=== PATIENT | female | born 1995 | race Caucasian/White ===

== ENCOUNTER 2017-02-26 21:32 | Emergency (ER) | payer MEDICAID ==
--- NOTE | 2017-02-26 21:57 | EDM.PDOC ---
ED HPI GENERAL MEDICAL PROBLEM - General Chief Complaint: Chest Pain Stated Complaint: CHEST PAIN Time Seen by Provider: 02/26/17 21:55 Source of Information: Reports: Patient History Limitations: Reports: No Limitations - History of Present Illness INITIAL COMMENTS - FREE TEXT/NARRATIVE: 21-year-old female presents to the ED for evaluation of central chest pain associate with palpitations and then left arm numbness weakness and tingling. His riding in a car with her mom back from [place] where they spent the day shopping. His came on suddenly. She states she has been having recurrent upper abdominal pain primarily sharp stabbing colicky component pain off-and-on for 2 months. Associated intermittent nausea. She reports that she is a vague and is concerned that she may not be getting the right nutrients in her diet. Had a baby 4 months ago. Is not had a period since that time. Therefore the possibility exists. Note vital signs are normal with sats of 100% on room air and respiratory rate of 18. She has no history of asthma no recent upper respiratory tract infections. She does report that Jozef's are painful to pass and often associated with blood when she wipes. Just above an anal fissure. The history alone suggest that she has chronic constipation problems. She is currently breast-feeding as well which may be contributing to some volume depletion. Onset: Today Onset Date: 02/26/17 Onset Time: 21:00 Duration: Minutes:, Waxing/Waning (Not aware of any palpitations at this time. Also left arm just feels weak at this time the numbness and tingling is getting better.) Location: Reports: Chest, Abdomen, Lower Extremity, Left Quality: Reports: Pressure, Sharp, Stabbing Severity: Moderate Improves with: Reports: Rest Worsens with: Reports: Other, Movement Context: Denies: Activity (Deep breathing seems to make it worse as well.), Exercise, Lifting, Sick Contact, Trauma, Other Associated Symptoms: Reports: Chest Pain (See history present illness), Nausea/ Vomiting (Intermittent nausea associate with), Shortness of Breath (Associated with the chest pain.). Denies: No Other Symptoms, Confusion, Cough, cough w sputum, Diaphoresis, Fever/Chills, Rash ( a Doppler abdominal sharp stabbing pains.), Seizure, Syncope, Weakness Treatments SERVICE CREW LEADER: Reports: Other (see below) (None.) Chest Pain Score (Numeric/FACES): 7 - Related Data Allergies Allergy/AdvReac Type Severity Reaction Status Date / Time No Known Allergies Allergy Verified 02/26/17 21:45 Home Meds: Home Meds Polyethylene Glycol 3350 [MiraLAX] 17 gm PO DAILY #1 cont 02/26/17 [Rx] Past Medical History - Past Surgical History Female Surgical History: Reports: D&C Social & Family History - Tobacco Use Smoking Status *Q: Never Smoker - Caffeine Use Caffeine Use: Reports: None - Recreational Drug Use Recreational Drug Use: No - Living Situation & Occupation Occupation: Unemployed ED ROS GENERAL - Review of Systems Review Of Systems: See Below Constitutional: Reports: Malaise, Weakness, Fatigue, Decreased Appetite (She's not sure she is losing weight.), Weight Loss. Denies: Fever, Chills HEENT: Reports: No Symptoms Respiratory: Reports: Shortness of Breath, Other (Presents to the ED with chest pain.). Denies: Wheezing, Pleuritic Chest Pain, Cough, Sputum, Hemoptysis Cardiovascular: Reports: Chest Pain, Lightheadedness, Palpitations (Associated with the development of chest pain or abdominal pain at times was aware that her heart was racing when she was in the motor vehicle and developing chest pain.). Denies: Blood Pressure Problem, Claudication, Edema, Orthopnea Endocrine: Reports: Fatigue GI/Abdominal: Reports: Abdominal Pain (Recurrent problems with abdominal pain by history with constipation and suspect anal fissure by history with bleeding with bowel movements and painful bowel movements since she had her baby 4 months ago.), Constipation, Hematochezia (With bowel movements with pain.) : Reports: Other (She has not had a menstrual cycle since she had the baby 4 months ago. She is currently breast-feeding) Skin: Reports: No Symptoms Neurological: Reports: No Symptoms Psychiatric: Reports: No Symptoms Hematologic/Lymphatic: Reports: No Symptoms Immunologic: Reports: No Symptoms ED EXAM, GENERAL - Physical Exam Exam: See Below Exam Limited By: No Limitations (Vital signs are normal) General Appearance: Alert, Anxious, Mild Distress, Other (Vital signs are normal.) Eye Exam: Bilateral Eye: Normal Inspection Neck: Normal Inspection, Supple, Non-Tender, Full Range of Motion. No: Lymphadenopathy (L), Lymphadenopathy (R) Respiratory/Chest: No Respiratory Distress, Lungs Clear, Normal Breath Sounds, No Accessory Muscle Use, Other (Chest wall is very tender to palpation ribs 2-5 bilaterally. The costochondral joints.) Cardiovascular: Normal Peripheral Pulses, Regular Rate, Rhythm, No Edema, No Gallop, No Murmur, No Rub Peripheral Pulses: 3+: Posterior Tibial (L), Posterior Tibial (R), Dorsalis Pedis (L), Dorsalis Pedis (R) GI/Abdominal: Normal Bowel Sounds, Tender, Other (Palpable right hemicolon.). No: Guarding (Mild tilt tenderness right lower quadrant of the abdomen with no rebound or guarding), Rebound Back Exam: Normal Inspection, Full Range of Motion. No: CVA Tenderness (L), CVA Tenderness (R) Extremities: Normal Inspection, Normal Range of Motion, Non-Tender, No Pedal Edema Neurological: Alert, Oriented, CN II-XII Intact, Normal Cognition, Normal Gait, Other (Normal finger to nose movements no ataxia no pronator drift no weakness of the upper extremities on exam.) Psychiatric: Normal Affect, Anxious Skin Exam: Warm, Dry, Intact, Normal Color, No Rash EKG INTERPRETATION EKG Date: 02/26/17 Time: 22:30 Rhythm: NSR Rate (Beats/Min): 65 Amorita: Normal P-Wave: Present QRS: Other (RS are prime wave in V1 normal variation. Low voltage in the limb leads.) ST-T: Normal QT: Normal EKG Interpretation Comments: Essentially normal ECG. Course - Vital Signs Last Recorded V/S: Last Vital Signs Temp 36.3 C 02/26/17 23:20 Pulse 76 02/26/17 23:20 Resp 18 02/26/17 23:20 BP 100/76 02/26/17 23:20 Pulse Ox 100 02/26/17 23:20 - Orders/Labs/Meds Orders: Active Orders 24 hr Category Date Time Status EKG Documentation Completion [RC] STAT Care 02/26/17 22:16 Active Abdomen 1V Flat [CR] Stat Exams 02/26/17 22:11 Taken Chest 1V Frontal [CR] Stat Exams 02/26/17 22:11 Taken Labs: Laboratory Tests 02/26/17 Range/Units 21:57 Urine HCG, Qual Negative (NEGATIVE) Meds: Medications Discontinued Medications Generic Name Dose Route Start Last Admin Trade Name Freq PRN Reason Stop Dose Admin Magnesium Citrate 210 ml 02/26/17 22:59 02/26/17 23:20 Citrate Of Magnesia PO 02/26/17 23:00 210 ml ONETIME ONE Administration - Radiology Interpretation Free Text/Narrative:: 21-year-old female presents the ED with acute onset of anterior chest pain palpitations in the left arm weakness and numbness and tingling. She was in a motor vehicle driving back with from [place] with her mom and symptoms started. She has had similar symptoms in the past. She reports that she is not aware of any severe stress. She is having problems with intermittent abdominal pain worsened by eating with a history of constipation and bleeding per rectum with bowel movements with pain compatible with an anal fissure. The symptoms started after she had a baby 4 months ago. She is currently breast-feeding. She has not had a menstrual cycle since she had the baby. Examination reveals normal vital signs. Chest wall is very tender to palpation ribs 2-5 bilaterally at the costochondral joints. Lungs are clear heart is sinus with no murmurs present. Abdomen shows some distention and tympany to percussion. Bowel sounds were normal palpable right hemicolon clinically. She reports intermittent nausea associated with the abdominal pain. History is strongly suggestive of constipation issues with chest wall pain on exam. Plan ECG one view chest x-ray one view the abdomen to be performed. Urinalysis performed for an ECG before x- rays are done since she is not had a period for months. - Re-Assessments/Exams Free Text/Narrative Re-Assessment/Exam: 02/26/17 22:15: Urine hCG is negative. We'll proceed with one view chest x-ray one view abdominal x-ray. 02/26/17 22:45: Chest x-ray is within normal limits. KUB reveals significant constipation with a lot of stool in the right hemicolon large amount of the transverse colon and descending colon and rectal vault. Correlates with clinical history. Does have chest wall pain and I still think it's related to breast-feeding and advised a good breath support with perhaps double sports bra etc. No thing is she may well be becoming hypo-calcemic due to breast-feeding as she is a vague and and drinking only coconut milk which may not be providing enough calcium support. There is a problem is that calcium supplementation at this time will aggravate her constipation. Plan I'm going to discharge her on Motrin when necessary for chest pain. Will give her Citroma 7 ounces in the morning with 5 ounces of juice to provide bowel cleanse and then to start MiraLAX powder 17 g once daily long-term until she is finished breast-feeding at least to allow the anal fissure to heal and allow her bowel function to return to normal. Of course advised that she must be aware taking adequate fluids daily. Advised follow-up in 2 weeks time if she is continued to have bleeding per rectum and may need medication to help healing anal fissure. 1 Departure - Departure Time of Disposition: 22:57 Disposition: Home, Self-Care 01 Condition: Fair Clinical Impression: Anterior chest wall pain, Costochondritis, Constipation by delayed colonic transit, Anal fissure Abdominal pain Qualifiers: Abdominal location: upper abdomen, unspecified Qualified Code(s): R10.10 - Upper abdominal pain, unspecified - Discharge Information Prescriptions: Polyethylene Glycol 3350 [MiraLAX] 17 gm PO DAILY #1 cont Instructions: Abdominal Pain, Adult, Chest Wall Pain, [id number], Costochondritis Referrals: PCP,Not In Area [Primary Care Provider] - Forms: ED Department Discharge Additional Instructions: Evaluation in the emergency room tonight in regards to development of palpitations associated with chest pains and radiation of pain into the left arm with associated numbness and tingling due to hyperventilation syndrome. History of recurrent abdominal pain for several months with associated constipation problems and rectal bleeding with bowel movements compatible with anal fissure. Evaluation emergency room consisted of an ECG or heart tracing which proved to be normal. Also chest x-ray completely normal. Abdominal x-ray revealed extensive constipation with increased stool throughout most of the colon which is foreign half feet long. This is definitely the cause of recurrent abdominal pain worsened by eating and because of painful bowel movements with rectal bleeding. Chest wall pain identified on examination particularly throughout the anterior aspect of the ribs 2-5 on both sides of your chest. This may be related to breast-feeding and the weight of the breasts pulling on the chest wall causing pain. He can also lower your calcium levels which is placed in the breast milk which may be contributing to some of your chest wall pain. I suggest would be Motrin 600 mg every 6-8 hours as needed for chest wall pain. Treatment of constipation is to be Citroma takes 7 ounces in the morning with 5 ounces of juice of choice by mouth once. His usually takes 1- 2 hours to start to work and bowels were move usually 3-5 times. By bowel cleanse. Then I would suggest trying MiraLAX powder 17 g or 1 scoop every day to soften the stool and provide regular bowel movements. At this time I would not recommend calcium supplementation as it tends to cause constipation. I would suggest continue vitamin which has all the vitamin B vitamins that he would need to support your vegan diet. Suggest follow-up in the clinic if you're still having rectal bleeding or for continued abdominal pain, in 2 weeks' time. - My Orders Last 24 Hours: My Active Orders 02/26/17 22:11 Abdomen 1V Flat [CR] Stat Chest 1V Frontal [CR] Stat 02/26/17 22:16 EKG Documentation Completion [RC] STAT - Assessment/Plan Last 24 Hours: My Active Orders 02/26/17 22:11 Abdomen 1V Flat [CR] Stat Chest 1V Frontal [CR] Stat 02/26/17 22:16 EKG Documentation Completion [RC] STAT
[2017-02-26] MEDS ORDERED: Magnesium Citrate Solution 296 ML Bottle PO ONE (22:59)
--- NOTE | 2017-02-28 11:40 | CR ---
Abdomen: Supine view of the abdomen was obtained. Comparison: No prior study. Mild increased stool is seen throughout the colon. Bowel gas pattern is otherwise unremarkable. No abnormal calcifications or discrete soft tissue abnormality is identified. No discrete bony abnormality is seen. Impression: 1. Mild increased stool is seen throughout the colon. Diagnostic code #2
--- NOTE | 2017-02-28 11:40 | CR ---
Chest: Frontal view of the chest was obtained. Comparison: No prior study. Heart size and mediastinum are normal. Lungs are clear. Bony structures appear grossly intact. Impression: 1. Nothing acute is seen on frontal chest x-ray. Diagnostic code #1
== END 2017-02-26 23:15 | disposition home or self-care (01) ==
LOC: JD.ED 21:32
DX: M94.0 Chondrocostal junction syndrome [Tietze] (principal); K59.01 Slow transit constipation; K60.2 Anal fissure, unspecified
CPT/HCPCS: 71010; 74000; 81025; 93005; 99285; A9270; 93010; 99284

== ENCOUNTER 2017-08-02 15:30 | Emergency (ER) | payer MEDICAID ==
[2017-08-02] MEDS ORDERED: LORazepam 1 MG Tab PO ONE (16:21)
--- NOTE | 2017-08-02 16:31 | EDM.PDOC ---
ED HPI GENERAL MEDICAL PROBLEM - General Chief Complaint: Respiratory Problem Stated Complaint: TROUGLE BREATHING Time Seen by Provider: 08/02/17 15:53 Source of Information: Reports: Patient History Limitations: Reports: No Limitations - History of Present Illness INITIAL COMMENTS - FREE TEXT/NARRATIVE: Patient is a 21-year-old female presents ED complaining of sudden onset of chest tightness worse with taking a deep breath and sensation her body shaking that started approximately 2 hours ago. Patient was cleaning her house when this occurred. She felt short of breath to the chest tightness and felt like her heart was pounding. Patient sat down on the couch still had the sensation of somebody was sitting on her chest. She is mildly dizzy with standing. She is mildly nauseated with no emesis. Pain is rated a 6 out of 10. Worse with taking deep breath. And also palpation. She has a history of panic attack in the past. States symptoms are different as of recent. She really doesn't feel anxious at this point. Complains of clamminess to her hands bilaterally. She's had no history of DVT or PE. She has no swelling or pain to her lower extremities. She is not on control. Nor does the patient smoke. Patient has no known hypercoaguable state. She does not have cancer. Basic labs and studies include: CBC, chem 14, UA, TSH, hCG, chest x-ray one view , and EKG. Patient complaining of shaky sensation all over her body. I do believe some of the symptoms she is experiencing associated with anxiety. She does have a history anxiety in the past. Ordered Ativan 1 mg by mouth. Treatments BANK APPRAISER: Reports: Other (see below) Other Treatments BANK APPRAISER: nnone - Related Data Allergies Allergy/AdvReac Type Severity Reaction Status Date / Time No Known Allergies Allergy Verified 02/26/17 21:45 Home Meds: Home Meds . [No Known Home Meds] 08/02/17 [History] Past Medical History - Past Health History Medical/Surgical History: Denies Medical/Surgical History - Past Surgical History Female Surgical History: Reports: D&C Social & Family History - Tobacco Use Smoking Status *Q: Never Smoker - Caffeine Use Caffeine Use: Reports: Coffee - Recreational Drug Use Recreational Drug Use: No - Living Situation & Occupation Occupation: Unemployed ED ROS GENERAL - Review of Systems Review Of Systems: ROS reveals no pertinent complaints other than HPI. ED EXAM, GENERAL - Physical Exam Exam: See Below Exam Limited By: No Limitations General Appearance: Alert, WD/WN, Anxious Eye Exam: Bilateral Eye: Normal Inspection Ears: Hearing Grossly Normal Nose: Normal Inspection Throat/Mouth: Normal Inspection, Normal Oropharynx, Normal Voice, No Airway Compromise Head: Atraumatic, Normocephalic Neck: Normal Inspection, Supple Respiratory/Chest: No Respiratory Distress, Lungs Clear, Normal Breath Sounds, No Accessory Muscle Use, Other (Anterior chest discomfort with palpation.) Cardiovascular: Normal Peripheral Pulses, Regular Rate, Rhythm, No JVD, No Murmur, No Rub Peripheral Pulses: 4+: Radial (L), Radial (R) GI/Abdominal: Normal Bowel Sounds, Soft, Non-Tender, No Organomegaly, No Distention Back Exam: Normal Inspection Extremities: Normal Inspection, Normal Range of Motion, Non-Tender, No Pedal Edema, Normal Capillary Refill Neurological: Alert, Oriented, CN II-XII Intact, Normal Cognition, No Motor/ Sensory Deficits Psychiatric: Normal Affect, Normal Mood Skin Exam: Warm, Dry, Intact, Normal Color, No Rash Course - Vital Signs Last Recorded V/S: Last Vital Signs Temp 98.1 F 08/02/17 15:41 Pulse 73 08/02/17 15:41 Resp 20 08/02/17 15:41 BP 95/64 08/02/17 15:41 Pulse Ox 100 08/02/17 15:41 - Orders/Labs/Meds Orders: Active Orders 24 hr Category Date Time Status EKG 12 Lead [EKG Documentation Completion] [RC] STAT Care 08/02/17 16:20 Active HCG QUALITATIVE,URINE [URCHEM] Stat Lab 08/02/17 16:45 Ordered Labs: Laboratory Tests 08/02/17 08/02/17 08/02/17 Range/Units 16:34 16:34 16:34 WBC 7.63 (3.98-10.04) K/mm3 RBC 4.83 (3.98-5.22) M/mm3 Hgb 14.8 (11.2-15.7) gm/L Hct 44.4 (34.1-44.9) % MCV 91.9 (79.4-94.8) fl MCH 30.6 (25.6-32.2) pg MCHC 33.3 (32.2-35.5) g/dl RDW Std Deviation 40.4 (36.4-46.3) fL Plt Count 275 (182-369) K/mm3 MPV 9.3 L (9.4-12.3) fl Neutrophils % (Manual) 60 (40-60) % Band Neutrophils % 0 (0-10) % Lymphocytes % (Manual) 29 (20-40) % Atypical Lymphs % 4 % Monocytes % (Manual) 6 (2-10) % Eosinophils % (Manual) 1 (0.7-5.8) % Basophils % (Manual) 0 L (0.1-1.2) Platelet Estimate Adequate Plt Morphology Comment Normal Anisocytosis RBC Morph Comment Normal Sodium 138 (136-145) mEq/L Potassium 3.7 (3.5-5.1) mEq/L Chloride 105 (98-107) mEq/L Carbon Dioxide 30 (21-32) mEq/L Anion Gap 6.7 (5-15) BUN 11 (7-18) mg/dL Creatinine 0.7 (0.55-1.02) mg/dL Est Cr Clr Drug Dosing 104.28 mL/min Estimated GFR (MDRD) > 60 (>60) mL/min BUN/Creatinine Ratio 15.7 (14-18) Glucose 96 (74-106) mg/dL Calcium 10.0 (8.5-10.1) mg/dL Total Bilirubin 0.3 (0.2-1.0) mg/dL AST 13 L (15-37) U/L ALT 20 (14-59) U/L Alkaline Phosphatase 113 (46-116) U/L Total Protein 7.4 (6.4-8.2) g/dl Albumin 4.0 (3.4-5.0) g/dl Globulin 3.4 gm/dL Albumin/Globulin Ratio 1.2 (1-2) TSH 3rd Generation 1.091 (0.358-3.74) uIU/mL Urine Color (Yellow) Urine Appearance (Clear) Urine pH (5.0-8.0) Ur Specific [place] (1.005-1.030) Urine Protein (Negative) Urine Glucose (UA) (Negative) Urine Ketones (Negative) Urine Occult Blood (Negative) Urine Nitrite (Negative) Urine Bilirubin (Negative) Urine Urobilinogen (0.2-1.0) Ur Leukocyte Esterase (Negative) Urine RBC (0-5) /hpf Urine WBC (0-5) /hpf Ur Epithelial Cells (0-5) /hpf Urine Bacteria (FEW) /hpf Urine Mucus (FEW) /hpf Urine HCG, Qual (NEGATIVE) 08/02/17 08/02/17 Range/Units 16:45 16:45 WBC (3.98-10.04) K/mm3 RBC (3.98-5.22) M/mm3 Hgb (11.2-15.7) gm/L Hct (34.1-44.9) % MCV (79.4-94.8) fl MCH (25.6-32.2) pg MCHC (32.2-35.5) g/dl RDW Std Deviation (36.4-46.3) fL Plt Count (182-369) K/mm3 MPV (9.4-12.3) fl Neutrophils % (Manual) (40-60) % Band Neutrophils % (0-10) % Lymphocytes % (Manual) (20-40) % Atypical Lymphs % % Monocytes % (Manual) (2-10) % Eosinophils % (Manual) (0.7-5.8) % Basophils % (Manual) (0.1-1.2) Platelet Estimate Plt Morphology Comment Anisocytosis RBC Morph Comment Sodium (136-145) mEq/L Potassium (3.5-5.1) mEq/L Chloride (98-107) mEq/L Carbon Dioxide (21-32) mEq/L Anion Gap (5-15) BUN (7-18) mg/dL Creatinine (0.55-1.02) mg/dL Est Cr Clr Drug Dosing mL/min Estimated GFR (MDRD) (>60) mL/min BUN/Creatinine Ratio (14-18) Glucose (74-106) mg/dL Calcium (8.5-10.1) mg/dL Total Bilirubin (0.2-1.0) mg/dL AST (15-37) U/L ALT (14-59) U/L Alkaline Phosphatase (46-116) U/L Total Protein (6.4-8.2) g/dl Albumin (3.4-5.0) g/dl Globulin gm/dL Albumin/Globulin Ratio (1-2) TSH 3rd Generation (0.358-3.74) uIU/mL Urine Color Light yellow (Yellow) Urine Appearance Clear (Clear) Urine pH 7.0 (5.0-8.0) Ur Specific [place] 1.015 (1.005-1.030) Urine Protein Negative (Negative) Urine Glucose (UA) Negative (Negative) Urine Ketones Negative (Negative) Urine Occult Blood Negative (Negative) Urine Nitrite Negative (Negative) Urine Bilirubin Negative (Negative) Urine Urobilinogen 0.2 (0.2-1.0) Ur Leukocyte Esterase Negative (Negative) Urine RBC 0-5 (0-5) /hpf Urine WBC 0-5 (0-5) /hpf Ur Epithelial Cells 0-5 (0-5) /hpf Urine Bacteria Rare (FEW) /hpf Urine Mucus Not seen (FEW) /hpf Urine HCG, Qual Negative (NEGATIVE) Meds: Medications Discontinued Medications Generic Name Dose Route Start Last Admin Trade Name Freq PRN Reason Stop Dose Admin Acetaminophen 975 mg 08/02/17 17:54 08/02/17 18:23 Tylenol PO 08/02/17 17:55 Not Given NOW ONE Lorazepam 1 mg 08/02/17 16:21 08/02/17 16:40 Ativan PO 08/02/17 16:22 Not Given ONETIME ONE - Re-Assessments/Exams Free Text/Narrative Re-Assessment/Exam: PERC Rule Negative. Basic labs and studies include: CBC, chem 14, UA, TSH, hCG, chest x-ray one view , and EKG. Patient complaining of shaky sensation all over her body. I do believe some of the symptoms she is experiencing associated with anxiety. She does have a history anxiety in the past. Ordered Ativan 1 mg by mouth. 08/02/17 16:41 Patient has refused the ativan. She is breast feeding and does not have breast pump. CXR revealed no acute findings. Labs reviewed: White blood cell count within normal limits, hemoglobin 14.8, platelet count 275. Chemistry was essentially normal. TSH 1.091. UA negative for infection. HCG negative. EKG: Normal ECG. 1745 Reassessment, patient resting complaining bed. Vital signs are stable. Still continues to have some mild anterior chest discomfort worse with taking a deep breath and palpation. She still feeling anxious. Offered Ativan again to which she denied. Will order Tylenol 975 mg by mouth. Will discharge patient home with instructions as documented. Departure - Departure Time of Disposition: 17:56 Disposition: Home, Self-Care 01 Condition: Good Clinical Impression: Anterior chest wall pain, Anxiety - Discharge Information Instructions: Chest Wall Pain Referrals: Crispin Wallace [Primary Care Provider] - Forms: ED Department Discharge Additional Instructions: Pain to the chest is reproducible with palpation and also taking a deep breath. Consistent for chest wall pain. Treatment will consist of Tylenol 650 mg every 6 hours and ibuprofen 400-600 mg every 6 hours in alternating fashion for pain. Refrain from any activities that cause worsening pain. Would request you speak with your primary care provider to discuss treatment for anxiety. Suspect most of your symptoms brought on today were anxiety induced. Please return to the E.D. if you develop any new or worsening symptoms. - My Orders Last 24 Hours: My Active Orders 08/02/17 16:20 EKG 12 Lead [EKG Documentation Completion] [RC] STAT 08/02/17 16:45 HCG QUALITATIVE,URINE [URCHEM] Stat - Assessment/Plan Last 24 Hours: My Active Orders 08/02/17 16:20 EKG 12 Lead [EKG Documentation Completion] [RC] STAT 08/02/17 16:45 HCG QUALITATIVE,URINE [URCHEM] Stat
--- NOTE | 2017-08-02 17:53 | CR ---
Chest: Portable view of the chest was obtained. Comparison: Prior chest x-ray of 02/26/17. Heart size and mediastinum are normal. Lungs are clear. Bony structures are unremarkable for the patient's age. Impression: 1. Nothing acute is appreciated on 2 view chest x-ray. Diagnostic code #1
[2017-08-02] MEDS ORDERED: Acetaminophen 325 MG Tab PO ONE (17:54)
== END 2017-08-02 18:00 | disposition home or self-care (01) ==
LOC: JD.ED 15:30
DX: R07.89 Other chest pain (principal); F41.9 Anxiety disorder, unspecified
CPT/HCPCS: 36415; 71045; 71045-26; 80053; 81001; 81025; 84443; 85025; 93005; 93010; 99284; 99285-25

== ENCOUNTER 2017-08-02 23:38 | Emergency (ER) | payer MEDICAID ==
--- NOTE | 2017-08-03 02:49 | EDM.PDOC ---
ED HPI GENERAL MEDICAL PROBLEM - General Chief Complaint: Lower Extremity Injury/Pain Stated Complaint: LEFT CALF PAIN DOWN TO FOOT Time Seen by Provider: 08/03/17 01:01 Source of Information: Reports: Patient, Old Records History Limitations: Reports: No Limitations - History of Present Illness INITIAL COMMENTS - FREE TEXT/NARRATIVE: Medical records indicate that the patient was seen in this ED earlier this afternoon with a complaint of sudden onset chest tightness, made worse with deep breaths, whole-body shaking, mild dizziness with standing, and mild nausea without emesis. Her oxygen saturation was found to be 100% on room air. Workup included a CBC, CMP, TSH level, urinalysis, urine test, portable chest radiograph, and an ECG. Her entire workup was unremarkable. Her symptoms were felt to be due to anxiety. She was offered Ativan, which she refused because she is breast-feeding. She was discharged home in good condition. She now returns to the ED stating that she developed pain in her left calf around 23:00 tonight. There is pain even if she is not using the muscle, such as with ambulation. No recent injury to the calf. The patient has not noticed any visible abnormality to the leg. She states that she is feeling very nervous , like "something is wrong". She reports that the symptoms that she experienced earlier today have largely resolved, although she states that she currently has left foot numbness and cold feeling, tightness in her throat, and chest pain. She had dyspnea earlier, but not presently. She denies abdominal pain or nausea. She denies perioral tingling, tingling of the hands or fingers, or the sensation of walking on rubber legs. The patient acknowledges that she has a history of panic attacks, previously treated with Ativan, however, she discontinued it due to concerns about dependency. Here in the ED, is again noted that the patient's oxygen saturation is 100% on room air. The patient's PCP is Dr. Wallace. Left Lower Leg Pain Score (Numeric/FACES): 4 - Related Data Allergies Allergy/AdvReac Type Severity Reaction Status Date / Time No Known Allergies Allergy Verified 08/02/17 23:59 Home Meds: Home Meds . [No Known Home Meds] 08/02/17 [History] Past Medical History Psychiatric History: Reports: Anxiety, Panic Attack - Past Surgical History Female Surgical History: Reports: D&C (Elective ) Social & Family History - Tobacco Use Smoking Status *Q: Former Smoker Years of Tobacco use: 5 Packs/Tins Daily: 0.5 Packs/Tins Daily Comment: Quit 2014 - Caffeine Use Caffeine Use: Reports: Coffee - Alcohol Use Alcohol Use History: No - Recreational Drug Use Recreational Drug Use: Yes Drug Use in Last 12 Months: No Recreational Drug Type: Reports: Marijuana/Hashish (last smoked 2015) - Living Situation & Occupation Living situation: Reports: Single, with Significant Other (Boyfriend), with Family (2 kids) Occupation: Unemployed ED ROS GENERAL - Review of Systems Review Of Systems: ROS reveals no pertinent complaints other than HPI. ED EXAM, GENERAL - Physical Exam Exam: See Below Exam Limited By: No Limitations General Appearance: Alert, WD/WN, Anxious Eye Exam: Bilateral Eye: Normal Inspection Ears: Normal External Exam, Hearing Grossly Normal Nose: Normal Inspection, No Blood Throat/Mouth: Normal Inspection, Normal Lips, Normal Oropharynx, Normal Voice, No Airway Compromise Head: Atraumatic, Normocephalic Neck: Normal Inspection, Full Range of Motion Respiratory/Chest: No Respiratory Distress, Lungs Clear, Normal Breath Sounds, No Accessory Muscle Use Cardiovascular: Normal Peripheral Pulses, Regular Rate, Rhythm, No Edema, No Gallop, No JVD, No Murmur, No Rub Peripheral Pulses: 4+: Radial (L), Radial (R) GI/Abdominal: Normal Bowel Sounds, Soft, Non-Tender, No Organomegaly, No Distention, No Abnormal Bruit, No Mass (Female) Exam: Deferred Rectal (Female) Exam: Deferred Back Exam: Normal Inspection, Full Range of Motion, NT Extremities: Normal Inspection, Normal Range of Motion, No Pedal Edema, Normal Capillary Refill, Other (No visible abnormality to the left lower extremity, in particular, the left calf, such as swelling, erythema, ecchymosis, or abrasion. Mild tenderness to palpation of the posterior calf. Right mid-calf circumference 32.5 cm. Left mid-calf circumference is 33.0 cm. Neurovascular status of both lower extremity is is intact.) Neurological: Alert, Oriented, Normal Cognition, No Motor/Sensory Deficits Psychiatric: Anxious Skin Exam: Warm, Dry, Intact, Normal Color, No Rash Course - Vital Signs Last Recorded V/S: Last Vital Signs Temp 36.7 C 05/03/18 00:00 Pulse 84 08/03/17 00:00 Resp 18 08/03/17 00:00 BP 117/68 08/03/17 00:00 Pulse Ox 100 08/03/17 00:00 - Orders/Labs/Meds Orders: Active Orders 24 hr Category Date Time Status VL Duplex Lwr Ext Veins Ltd Lt [US] Stat Exams 08/03/17 01:18 Taken - Re-Assessments/Exams Free Text/Narrative Re-Assessment/Exam: 08/03/17 02:44 Venous Doppler of the left lower extremity is read by [facility] as "Normal left lower extremity duplex venous ultrasound." 08/03/17 02:49 Ultrasound results discussed with the patient. The patient's symptoms, both at her earlier ED visit as well as this visit, are almost certainly due to hyperventilation syndrome due to anxiety. I recommended that she follow-up with Dr. Wallace to discuss treatment options for anxiety. The patient is agreeable. Departure - Departure Time of Disposition: 02:51 Disposition: Home, Self-Care 01 Condition: Good Clinical Impression: Hyperventilation syndrome - Discharge Information Instructions: Hyperventilation Referrals: Crispin Wallace [Primary Care Provider] - Forms: ED Department Discharge Additional Instructions: You were seen in the emergency room for left leg pain. Workup in the ER included a Doppler ultrasound of your left lower extremity, which was normal. You do not have a blood clot in your leg. Your symptoms, including those from your earlier ER visit, are almost certainly due to hyperventilation syndrome, due to anxiety. We recommend that you follow-up with your PCP, Dr. Wallace, to discuss treatment options for anxiety. If any other problems, please do not hesitate to return to the ER. - My Orders Last 24 Hours: My Active Orders 08/03/17 01:18 VL Duplex Lwr Ext Veins Ltd Lt [US] Stat - Assessment/Plan Last 24 Hours: My Active Orders 08/03/17 01:18 VL Duplex Lwr Ext Veins Ltd Lt [US] Stat
--- NOTE | 2017-08-03 08:11 | US ---
Left lower extremity deep venous ultrasound: Duplex and color flow imaging was obtained of the left common femoral, proximal greater saphenous, superficial femoral, popliteal, posterior tibial and peroneal veins. Findings: Normal phasic flow, augmentation and compression are seen. Impression: 1. No evidence of deep venous thrombosis is seen within the left lower extremity or within the right common femoral vein. Diagnostic code #1 Agree with preliminary report issued by [facility] ([facility] preliminary report dictated on 08/03/17, 3:28 AM Central Time)
== END 2017-08-03 02:55 | disposition home or self-care (01) ==
LOC: JD.ED 23:38
DX: F45.8 Other somatoform disorders (principal); Z87.891 Personal history of nicotine dependence
CPT/HCPCS: 93971-26-LT; 93971-LT; 99284-25

== ENCOUNTER 2017-12-05 10:28 | Emergency (ER) | payer MEDICAID ==
--- NOTE | 2017-12-05 11:17 | EDM.PDOC ---
ED HPI GENERAL MEDICAL PROBLEM - General Chief Complaint: Eye Problems Stated Complaint: LEFT EYE NUMBNESS Time Seen by Provider: 12/05/17 10:37 Source of Information: Reports: Patient History Limitations: Reports: No Limitations - History of Present Illness INITIAL COMMENTS - FREE TEXT/NARRATIVE: 22-year-old female presenting with blurry vision. Patient states that this morning she was having some dental work done a local block was performed. Patient states she's had exposure to this anesthetic before is had no previous reactions. The dental work took place in the left mandible. While driving home the patient noted gradual onset of blurry vision in the left eye. She denies any pain at all. Just very mild blurriness in the left eye. No photophobia. She does state that at times she sees floaters. Patient has no history of any ocular problems. She does wear glasses normally but did not bring them today. - Related Data Allergies Allergy/AdvReac Type Severity Reaction Status Date / Time No Known Allergies Allergy Verified 12/05/17 10:43 Home Meds: Home Meds . [No Known Home Meds] 08/02/17 [History] Past Medical History - Past Health History Medical/Surgical History: Denies Medical/Surgical History Psychiatric History: Reports: Anxiety, Panic Attack - Past Surgical History Female Surgical History: Reports: D&C Social & Family History - Caffeine Use Caffeine Use: Reports: Coffee - Living Situation & Occupation Living situation: Reports: Single, with Significant Other (Boyfriend), with Family (2 kids) Occupation: Unemployed ED ROS GENERAL - Review of Systems Review Of Systems: See Below Constitutional: Reports: No Symptoms HEENT: Reports: Vision Change Respiratory: Reports: No Symptoms Cardiovascular: Reports: No Symptoms Endocrine: Reports: No Symptoms GI/Abdominal: Reports: No Symptoms : Reports: No Symptoms Musculoskeletal: Reports: No Symptoms Skin: Reports: No Symptoms ED EXAM GENERAL W FULL EYE - Physical Exam Exam: See Below Exam Limited By: No Limitations General Appearance: Alert, No Apparent Distress Eyelids: Bilateral: Normal Appearance, Lid Everted for Exam Conjunctiva & Sclera: Bilateral: Normal Appearance Extraocular Movements: Bilateral: Intact Pupils: Normal Accommodation Pupillary Size: Bilateral: 4 mm Pupillary Reaction: Bilateral: Brisk Throat/Mouth: Normal Inspection Respiratory/Chest: No Respiratory Distress Cardiovascular: Normal Peripheral Pulses, Regular Rate, Rhythm GI/Abdominal: Soft, Non-Tender, No Distention Neurological: Alert, Oriented, CN II-XII Intact, Normal Cognition, No Motor/ Sensory Deficits Psychiatric: Normal Affect, Normal Mood Skin Exam: Warm, Dry, Intact Course - Vital Signs Last Recorded V/S: Last Vital Signs Temp 36.3 C 12/05/17 10:41 Pulse 81 12/05/17 10:41 Resp 16 12/05/17 10:41 BP 114/67 12/05/17 10:41 Pulse Ox 100 12/05/17 10:41 - Re-Assessments/Exams Free Text/Narrative Re-Assessment/Exam: 12/05/17 11:35 DDX: scleritis, vitreous hemorrhage, retinal detachment, atypical migraine, multiple sclerosis 22 y F presenting with blurred vision in left eye. Exam shows no evidence of conjunctival injection. Pupils equal round and reactive. EOMI. Visual juarez intact to confrontation. I performed ocular ultrasound at the bedside and showed no evidence vitreous hemorrhage or retinal detachment. Conversation with the patient regarding the uncertainty of her diagnosis at this time. Doesn't appear to be an emergency. If she has worsening blurry vision, pain in the eye she is to report immediately to the nearest ED for re-evaluation. Departure - Departure Time of Disposition: 11:47 Disposition: Home, Self-Care 01 Clinical Impression: Blurry vision, left eye - Discharge Information *PRESCRIPTION DRUG MONITORING PROGRAM REVIEWED*: No *COPY OF PRESCRIPTION DRUG MONITORING REPORT IN PATIENT SVETLANA: No Instructions: Blurred Vision, Adult Referrals: PCP,None [Primary Care Provider] - Forms: ED Department Discharge Additional Instructions: You were seen today in the ED for blurry vision. At this time you do not appear to have an emergency. If at any time you have worsening blurry vision, or eye pain please return to the nearest ED immediately for re-evaluation.
== END 2017-12-05 11:25 | disposition home or self-care (01) ==
LOC: JD.ED 10:28
DX: H53.8 Other visual disturbances (principal)
CPT/HCPCS: 99283

== ENCOUNTER 2018-01-05 16:38 | Emergency (ER) | payer MEDICAID ==
[2018-01-05] MEDS ORDERED: Sodium Chloride 0.9% 1,000 ML IV ONE (17:04)
--- NOTE | 2018-01-05 17:09 | EDM.PDOC ---
ED HPI GENERAL MEDICAL PROBLEM - General Chief Complaint: Abdominal Pain Stated Complaint: ABD PAIN Time Seen by Provider: 01/05/18 16:52 - History of Present Illness INITIAL COMMENTS - FREE TEXT/NARRATIVE: Patient is 22-year-old female accompanied by family member, who present today to the emergency department for an evaluation of right-sided abdominal pain for last 3 days. She stated that she did develop pain in her abdomen mainly in the right side while at work which has been intermittent in nature for last 3 days. Patient has no radiation however she stated that at one point her pain was on the right side of the flank area. Abdominal pain associated with nausea but denies any actual vomiting. She further denies any diarrhea, constipation, dysuria, urinary frequency or urgency, vaginal bleeding or discharge, subjective fever or chills, chest pain or palpitation, shortness of breath, headache or dizziness. She further denies any recent traveling or known sick contacts. Denies any out of the ordinary oral liquid or food ingestion for the past few days. She denies any medication use to alleviate pain or discomfort prior to arrival. Denies any other concern at this time. Right Abdomen Pain Score (Numeric/FACES): 8 - Related Data Allergies Allergy/AdvReac Type Severity Reaction Status Date / Time No Known Allergies Allergy Verified 01/05/18 16:48 Home Meds: Home Meds . [No Known Home Meds] 08/02/17 [History] Ondansetron [Zofran ODT] 4 mg PO Q8H PRN #15 tab.dis 01/05/18 [Rx] Past Medical History - Past Health History Medical/Surgical History: Denies Medical/Surgical History Psychiatric History: Reports: Anxiety, Panic Attack - Past Surgical History Female Surgical History: Reports: D&C Social & Family History - Tobacco Use Smoking Status *Q: Never Smoker Second Hand Smoke Exposure: No - Caffeine Use Caffeine Use: Reports: None - Recreational Drug Use Recreational Drug Use: No - Living Situation & Occupation Living situation: Reports: Single, with Significant Other (Boyfriend), with Family (2 kids) Occupation: Unemployed ED ROS GENERAL - Review of Systems Review Of Systems: ROS reveals no pertinent complaints other than HPI. ED EXAM, GI/ABD - Physical Exam Exam: See Below Exam Limited By: No Limitations General Appearance: Alert, WD/WN, No Apparent Distress Throat/Mouth: Normal Inspection, Normal Lips, Normal Oropharynx, Normal Voice, No Airway Compromise Head: Atraumatic, Normocephalic Neck: Normal Inspection, Supple, Full Range of Motion Respiratory/Chest: No Respiratory Distress, Lungs Clear, Normal Breath Sounds Cardiovascular: Normal Peripheral Pulses, Regular Rate, Rhythm GI/Abdominal Exam: Normal Bowel Sounds, Soft, No Organomegaly, No Distention, No Abnormal Bruit, No Mass, Other (Diffuse tenderness to palpation over the right upper and lower quadrant ). No: Guarding, Rigid, Rebound (Female) Exam: Deferred Rectal (Female) Exam: Deferred Back Exam: Normal Inspection, Full Range of Motion. No: CVA Tenderness (L), CVA Tenderness (R) Extremities: Normal Inspection, Normal Range of Motion, Normal Capillary Refill Neurological: Alert, Oriented, No Motor/Sensory Deficits Psychiatric: Normal Affect, Normal Mood Skin Exam: Warm, Dry, Intact, Normal Color, No Rash Course - Vital Signs Last Recorded V/S: Last Vital Signs Temp 37.0 C 01/05/18 16:41 Pulse 86 01/05/18 16:41 Resp 18 01/05/18 16:41 BP 101/64 01/05/18 16:41 Pulse Ox 99 01/05/18 16:41 - Orders/Labs/Meds Orders: Active Orders 24 hr Category Date Time Status Abdomen Comp [US] Stat Exams 01/05/18 17:48 Taken Labs: Laboratory Tests 01/05/18 01/05/18 01/05/18 Range/Units 17:05 17:05 17:15 WBC 9.19 (3.98-10.04) K/mm3 RBC 4.66 (3.98-5.22) M/mm3 Hgb 14.5 (11.2-15.7) gm/L Hct 43.2 (34.1-44.9) % MCV 92.7 (79.4-94.8) fl MCH 31.1 (25.6-32.2) pg MCHC 33.6 (32.2-35.5) g/dl RDW Std Deviation 40.9 (36.4-46.3) fL Plt Count 253 (182-369) K/mm3 MPV 9.2 L (9.4-12.3) fl Neut % (Auto) 66.2 (34.0-71.1) % Lymph % (Auto) 25.7 (19.3-51.7) % Pender % (Auto) 7.4 (4.7-12.5) % Eos % (Auto) 0.4 L (0.7-5.8) Baso % (Auto) 0.1 (0.1-1.2) % Neut # (Auto) 6.08 (1.56-6.13) K/mm3 Lymph # (Auto) 2.36 (1.18-3.74) K/mm3 Pender # (Auto) 0.68 H (0.24-0.36) K/mm3 Eos # (Auto) 0.04 (0.04-0.36) K/mm3 Baso # (Auto) 0.01 (0.01-0.08) K/mm3 Sodium (136-145) mEq/L Potassium (3.5-5.1) mEq/L Chloride (98-107) mEq/L Carbon Dioxide (21-32) mEq/L Anion Gap (5-15) BUN (7-18) mg/dL Creatinine (0.55-1.02) mg/dL Est Cr Clr Drug Dosing mL/min Estimated GFR (MDRD) (>60) mL/min BUN/Creatinine Ratio (14-18) Glucose (74-106) mg/dL Calcium (8.5-10.1) mg/dL Total Bilirubin (0.2-1.0) mg/dL AST (15-37) U/L ALT (14-59) U/L Alkaline Phosphatase (46-116) U/L Total Protein (6.4-8.2) g/dl Albumin (3.4-5.0) g/dl Globulin gm/dL Albumin/Globulin Ratio (1-2) Lipase (73-393) U/L Urine Color Dark yellow (Yellow) Urine Appearance Clear (Clear) Urine pH 7.5 (5.0-8.0) Ur Specific [place] 1.020 (1.005-1.030) Urine Protein Trace H (Negative) Urine Glucose (UA) Negative (Negative) Urine Ketones Trace H (Negative) Urine Occult Blood Negative (Negative) Urine Nitrite Negative (Negative) Urine Bilirubin Negative (Negative) Urine Urobilinogen 1.0 (0.2-1.0) Ur Leukocyte Esterase Trace H (Negative) Urine RBC 0-5 (0-5) /hpf Urine WBC 5-10 H (0-5) /hpf Ur Epithelial Cells 50-75 H (0-5) /hpf Urine Bacteria Many H (FEW) /hpf Urine Mucus Not seen (FEW) /hpf Urine HCG, Qual Negative (NEGATIVE) 01/05/18 Range/Units 17:15 WBC (3.98-10.04) K/mm3 RBC (3.98-5.22) M/mm3 Hgb (11.2-15.7) gm/L Hct (34.1-44.9) % MCV (79.4-94.8) fl MCH (25.6-32.2) pg MCHC (32.2-35.5) g/dl RDW Std Deviation (36.4-46.3) fL Plt Count (182-369) K/mm3 MPV (9.4-12.3) fl Neut % (Auto) (34.0-71.1) % Lymph % (Auto) (19.3-51.7) % Pender % (Auto) (4.7-12.5) % Eos % (Auto) (0.7-5.8) Baso % (Auto) (0.1-1.2) % Neut # (Auto) (1.56-6.13) K/mm3 Lymph # (Auto) (1.18-3.74) K/mm3 Pender # (Auto) (0.24-0.36) K/mm3 Eos # (Auto) (0.04-0.36) K/mm3 Baso # (Auto) (0.01-0.08) K/mm3 Sodium 141 (136-145) mEq/L Potassium 3.7 (3.5-5.1) mEq/L Chloride 104 (98-107) mEq/L Carbon Dioxide 28 (21-32) mEq/L Anion Gap 12.7 (5-15) BUN 9 (7-18) mg/dL Creatinine 0.8 (0.55-1.02) mg/dL Est Cr Clr Drug Dosing 90.47 mL/min Estimated GFR (MDRD) > 60 (>60) mL/min BUN/Creatinine Ratio 11.3 L (14-18) Glucose 89 (74-106) mg/dL Calcium 9.5 (8.5-10.1) mg/dL Total Bilirubin 0.4 (0.2-1.0) mg/dL AST 16 (15-37) U/L ALT 18 (14-59) U/L Alkaline Phosphatase 109 (46-116) U/L Total Protein 7.7 (6.4-8.2) g/dl Albumin 3.9 (3.4-5.0) g/dl Globulin 3.8 gm/dL Albumin/Globulin Ratio 1.0 (1-2) Lipase 134 (73-393) U/L Urine Color (Yellow) Urine Appearance (Clear) Urine pH (5.0-8.0) Ur Specific [place] (1.005-1.030) Urine Protein (Negative) Urine Glucose (UA) (Negative) Urine Ketones (Negative) Urine Occult Blood (Negative) Urine Nitrite (Negative) Urine Bilirubin (Negative) Urine Urobilinogen (0.2-1.0) Ur Leukocyte Esterase (Negative) Urine RBC (0-5) /hpf Urine WBC (0-5) /hpf Ur Epithelial Cells (0-5) /hpf Urine Bacteria (FEW) /hpf Urine Mucus (FEW) /hpf Urine HCG, Qual (NEGATIVE) Meds: Medications Discontinued Medications Generic Name Dose Route Start Last Admin Trade Name Freq PRN Reason Stop Dose Admin Sodium Chloride 1,000 mls @ 999 mls/hr 01/05/18 17:04 01/05/18 17:16 Normal Saline IV 01/05/18 18:04 999 mls/hr ONETIME ONE Administration Ceftriaxone Sodium 1 gm/ 100 mls @ 200 mls/hr 01/05/18 17:42 01/05/18 17:55 Sodium Chloride IV 01/05/18 18:11 200 mls/hr ONETIME ONE Administration Ketorolac Tromethamine 30 mg 01/05/18 17:42 01/05/18 17:54 Toradol IVPUSH 01/05/18 17:43 30 mg ONETIME ONE Administration Ondansetron HCl 4 mg 01/05/18 17:04 01/05/18 17:18 Zofran IVPUSH 01/05/18 17:05 Not Given ONETIME ONE - Re-Assessments/Exams Free Text/Narrative Re-Assessment/Exam: 01/05/18 18:20 At this time patient reevaluated at bedside. cardiopulmonary technician at bedside doing abdominal. Patient Stated That Her Pain Is Diminished and Now She Rated Her Pain Level about 1 or 2 on a Scale of 0-10. However denies any nausea. 01/05/18 18:50 Reevaluated the patient at this time. Symptoms improving and progressing as expected. Abdomen: Soft and nontender. Patient is alert and awake, afebrile with normal vital signs. Tolerating PO, no evidence of severe dehydration, sepsis, or other surgical process. Results were reviewed and discussed with patient and available family members. Questions were solicited and answered. At this time, patient is feeling better and denies any pain or nausea. Patient was advised to return to the emergency department for reevaluation of abdominal pain within 8-12 hours if her pain is persisted. Patient is appropriate for discharge. Patient and family both agreed with the discharge plan. Warning signs reviewed. Strong return precautions given for worsening symptoms or any other alarming symptoms such as persistent abdominal pain, nausea or vomiting, fever greater than 100.4F, chills, chest pain or palpitation, shortness of breath, diarrhea, rectal bleeding, dysuria, decreased urinary output, hematuria, back pain. Patient has been recommended to follow up at their established or referred primary care provider as soon as possible for further follow up of ED visit Patient verbalize understanding of the given instructions and agrees to comply. Departure - Departure Time of Disposition: 18:57 Disposition: Home, Self-Care 01 Condition: Good Clinical Impression: Abdominal pain Qualifiers: Abdominal location: generalized Qualified Code(s): R10.84 - Generalized abdominal pain - Discharge Information *PRESCRIPTION DRUG MONITORING PROGRAM REVIEWED*: Not Applicable *COPY OF PRESCRIPTION DRUG MONITORING REPORT IN PATIENT SVETLANA: Not Applicable Prescriptions: Ondansetron [Zofran ODT] 4 mg PO Q8H PRN #15 tab.dis PRN Reason: Nausea Instructions: Abdominal Pain, Adult, [id number] Referrals: PCP,None [Primary Care Provider] - 2 Days (Please establish care with her primary care provider to address this possible) Forms: ED Department Discharge, ED Return to Work/School Form - My Orders Last 24 Hours: My Active Orders 01/05/18 17:48 Abdomen Comp [US] Stat - Assessment/Plan Last 24 Hours: My Active Orders 01/05/18 17:48 Abdomen Comp [US] Stat
[2018-01-05] MEDS: Ondansetron 4 MG/2 ML SDV IVPUSH ONE ×2 (17:16→17:18)
[2018-01-05] MEDS ORDERED: cefTRIAXone 1 GM in Sodium Chloride 0.9% 100 ML IV ONE (17:42)
[2018-01-05] MEDS ORDERED: Ketorolac 30 MG/ML SDV IVPUSH ONE (17:42)
--- NOTE | 2018-01-05 19:50 | US ---
Abdominal ultrasound: Multiple real-time images of the abdomen were obtained. Comparison: No previous study. Liver shows no focal abnormality. Gallbladder contains no shadowing gallstones. No gallbladder wall thickening or biliary duct dilatation is seen. Kidneys showed no hydronephrosis or mass although left kidney is less than optimally seen due to bowel gas. Right kidney length is about 10.1 cm and left kidney length is also about 10.1 cm. Spleen size is normal. Aorta shows no aneurysmal dilatation. Pancreas appears within normal limits. Inferior vena cava is patent. Portal vein shows normal hepatopedal flow. Impression: 1. Less than optimally seen left kidney due to bowel gas. 2. Other portions of the abdominal ultrasound exam are unremarkable. Diagnostic code #1
== END 2018-01-05 19:05 | disposition home or self-care (01) ==
LOC: JD.ED 16:38
DX: R10.84 Generalized abdominal pain (principal)
CPT/HCPCS: 36415; 76700; 80053; 81001; 81025; 83690; 85025; 96361; 96365; 96375; 99284; J0696; J1885; J7030; J7040; J2405

== ENCOUNTER 2018-04-22 18:28 | Emergency (ER) | payer MEDICAID ==
--- NOTE | 2018-04-22 19:14 | EDM.PDOC ---
ED HPI GENERAL MEDICAL PROBLEM - General Chief Complaint: Headache Stated Complaint: HEADACHE, FEVER Time Seen by Provider: 04/22/18 19:02 Source of Information: Reports: Patient, RN Notes Reviewed - History of Present Illness INITIAL COMMENTS - FREE TEXT/NARRATIVE: 22 year old female with fever, chills for 2 days, Headache, soreness L upper breast. She is breast feeding a 17 month old child. No cough, sore throat, congestion or other unusual sx. 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: Psychiatric History: Reports: Anxiety, Panic Attack - Past Surgical History Female Surgical History: Reports: D&C Social & Family History - Caffeine Use Caffeine Use: Reports: Tea - Recreational Drug Use Recreational Drug Use: No - Living Situation & Occupation Living situation: Reports: Single, with Significant Other (Boyfriend), with Family (2 kids) Occupation: Unemployed ED ROS GENERAL - Review of Systems Review Of Systems: See Below Constitutional: Reports: Fever, Chills HEENT: Denies: Rhinitis, Sinus Problem, Throat Pain Respiratory: Denies: Shortness of Breath, Cough Cardiovascular: Denies: Chest Pain GI/Abdominal: Denies: Abdominal Pain, Diarrhea, Nausea, Vomiting : Reports: No Symptoms Musculoskeletal: Reports: Other (some achiness) Skin: Reports: Other (no erythema but has had soreness L upper breast for the last 3 days) Neurological: Reports: Headache - Physical Exam Exam: See Below General Appearance: Alert, No Apparent Distress Eye Exam: Bilateral Eye: PERRL Ears: Normal External Exam, Normal Canal, Normal TMs Nose: Normal Inspection Throat/Mouth: Normal Inspection Head Exam: Atraumatic Neck: Normal Inspection, Supple, Full Range of Motion Respiratory/Chest: No Respiratory Distress, Lungs Clear, Normal Breath Sounds, Other (L breast examined with nurse present. not warm or inflamed but diffusely tender L upper breast, remainder of breast nontender) Cardiovascular: Regular Rate, Rhythm GI/Abdominal: Non-Tender Neuro Exam (Abbreviated): Alert, Oriented, No Motor/Sensory Deficits Back Exam: No: CVA Tenderness (L), CVA Tenderness (R) Extremities: Normal Inspection Skin Exam: Warm, Dry, Normal Color Course - Vital Signs Last Recorded V/S: Last Vital Signs Temp 97.9 F 04/22/18 18:44 Pulse 79 04/22/18 18:44 Resp 18 04/22/18 18:44 BP 114/77 04/22/18 18:44 Pulse Ox 98 04/22/18 18:44 - Orders/Labs/Meds Meds: Medications Discontinued Medications Generic Name Dose Route Start Last Admin Trade Name Aruna PRN Reason Stop Dose Admin Acetaminophen 975 mg 04/22/18 19:31 04/22/18 19:36 Tylenol PO 04/22/18 19:32 975 mg NOW ONE Administration Cephalexin 500 mg 04/22/18 19:19 04/22/18 19:24 Keflex PO 04/22/18 19:20 500 mg ONETIME ONE Administration Cephalexin 500 mg 04/22/18 19:36 04/22/18 19:45 Keflex PO 04/22/18 19:37 500 mg ONETIME ONE Administration Ibuprofen 600 mg 04/22/18 19:31 04/22/18 19:36 Motrin PO 04/22/18 19:32 600 mg ONETIME ONE Administration Departure - Departure Time of Disposition: 19:35 Disposition: Home, Self-Care 01 Clinical Impression: Mastitis Headache Qualifiers: Headache type: unspecified Headache chronicity pattern: acute headache Intractability: not intractable Qualified Code(s): R51 - Headache - Discharge Information Prescriptions: Cephalexin [Keflex] 500 mg PO TID #20 capsule Instructions: General Headache Without Cause, Mastitis, [id number] Referrals: Oliver Lemus PA [Primary Care Provider] - Forms: ED Department Discharge Additional Instructions: cephalexin 500 mg 3 times daily for 1 week. you may take tylenol 1000 mg 2 to 3 times daily if needed for further headache. You may take advil or ibuprofen 600 mg in between doses of tyelnol if needed for further headache. Follow up clinic if not much better within 2 to 3 days as expected.
[2018-04-22] MEDS ORDERED: Cephalexin 500 MG Cap PO ONE ×2 (19:19→19:36)
[2018-04-22] MEDS ORDERED: Ibuprofen 600 MG Tab PO ONE (19:31)
[2018-04-22] MEDS ORDERED: Acetaminophen 325 MG Tab PO ONE (19:31)
== END 2018-04-22 19:50 | disposition home or self-care (01) ==
LOC: JD.ED 18:28
DX: N61.0 Mastitis without abscess (principal); R51 Headache
CPT/HCPCS: 99284; A9270

== ENCOUNTER 2018-06-05 19:35 | Emergency (ER) | payer MEDICAID ==
--- NOTE | 2018-06-05 20:44 | EDM.PDOC ---
ED HPI GENERAL MEDICAL PROBLEM - General Chief Complaint: General Stated Complaint: DIZZY/NAUSEA/HEADACHES Time Seen by Provider: 06/05/18 19:48 Source of Information: Reports: Patient History Limitations: Reports: No Limitations - History of Present Illness INITIAL COMMENTS - FREE TEXT/NARRATIVE: 22 yo F comes in today for headache, nausea and dizziness x 1 day. She states that her dizziness feels like someone is "pushing me back as I'm pushing forward ". She has never had anything like this before. She has no h/o migraine, allergies, eustachian tube dysfunction, or sinus issues. She does also c/o of L- sided runny nose at times ranging from clear to yellow/green, SOB, nausea, numbness of her hands, headache, photosensitivity, and black dots before her headache started. She denies F/C, cough, chest pain, abdominal pain, V/D, or other complaints. She did try Tylenol at home with no relief. She is currently . Headache Pain Score (Numeric/FACES): 6 - Related Data Allergies Allergy/AdvReac Type Severity Reaction Status Date / Time No Known Allergies Allergy Verified 06/05/18 20:00 Home Meds: Home Meds . 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 ED EXAM, GENERAL - Physical Exam Exam: See Below Exam Limited By: No Limitations General Appearance: Alert, WD/WN Eye Exam: Bilateral Eye: EOMI, PERRL Ears: Normal External Exam, Normal Canal, Hearing Grossly Normal, Normal TMs Ear Exam: Bilateral Ear: Canal Normal, TM normal Nose: Normal Inspection, Normal Mucosa, No Blood Throat/Mouth: Normal Inspection, Normal Lips, Normal Teeth, Normal Gums, Normal Oropharynx, Normal Voice, No Airway Compromise Head: Atraumatic, Normocephalic Neck: Normal Inspection, Supple, Non-Tender, Full Range of Motion Respiratory/Chest: No Respiratory Distress, Lungs Clear, Normal Breath Sounds, No Accessory Muscle Use, Chest Non-Tender Cardiovascular: Normal Peripheral Pulses, Regular Rate, Rhythm, No Edema, No Gallop, No JVD, No Murmur, No Rub Peripheral Pulses: 4+: Posterior Tibial (L), Posterior Tibial (R), Dorsalis Pedis (L), Dorsalis Pedis (R) GI/Abdominal: Normal Bowel Sounds, Soft, Non-Tender, No Organomegaly, No Distention, No Abnormal Bruit, No Mass Back Exam: Normal Inspection Extremities: Normal Inspection, Normal Range of Motion, Non-Tender, Normal Capillary Refill, No Pedal Edema Neurological: Alert, Oriented, CN II-XII Intact, Normal Cognition, Normal Gait, Normal Reflexes, No Motor/Sensory Deficits Psychiatric: Normal Affect, Normal Mood Skin Exam: Warm, Dry, Intact, Normal Color, No Rash Course - Vital Signs Last Recorded V/S: Last Vital Signs Temp 98.2 F 06/05/18 19:58 Pulse 73 06/05/18 19:58 Resp 18 06/05/18 19:58 BP 112/75 06/05/18 19:58 Pulse Ox 100 06/05/18 19:58 - Orders/Labs/Meds Meds: Medications Discontinued Medications Generic Name Dose Route Start Last Admin Trade Name Aruna PRN Reason Stop Dose Admin Diphenhydramine HCl 25 mg 06/05/18 20:54 06/05/18 21:19 Benadryl IVPUSH 06/05/18 20:55 25 mg ONETIME ONE Administration Hydromorphone HCl 0.5 mg 06/05/18 20:54 06/05/18 21:30 Dilaudid IVPUSH 06/05/18 20:55 Not Given ONETIME ONE Hydromorphone HCl Confirm 06/05/18 21:05 06/05/18 21:31 Dilaudid Administered 06/05/18 21:06 Not Given Dose 1 mg .ROUTE .STK-MED ONE Ketorolac Tromethamine 30 mg 06/05/18 20:54 06/05/18 21:20 Toradol IVPUSH 06/05/18 20:55 30 mg ONETIME ONE Administration Metoclopramide HCl 7.5 mg 06/05/18 20:54 06/05/18 21:18 Reglan IVPUSH 06/05/18 20:55 7.5 mg ONETIME ONE Administration - Re-Assessments/Exams Free Text/Narrative Re-Assessment/Exam: 06/05/18 20:49 I have ordered Benadryl 25, Toradol 30, Dilaudid 0.5, Reglan 7.5 06/05/18 21:31 Pt is feeling better after Benadryl, Toradol, Reglan. She did not want the Dilaudid. She would like to go home now. Departure - Departure Time of Disposition: 21:32 Disposition: Home, Self-Care 01 Condition: Good Clinical Impression: Migraine - Discharge Information *PRESCRIPTION DRUG MONITORING PROGRAM REVIEWED*: Not Applicable *COPY OF PRESCRIPTION DRUG MONITORING REPORT IN PATIENT SVETLANA: Not Applicable Instructions: Migraine Headache, [id number] Referrals: Oliver Lemus PA [Primary Care Provider] - Forms: ED Department Discharge Additional Instructions: You were seen in the ED today for dizziness, nausea and headache. You denied any infectious symptoms, sinus symptoms, or ear issues. After hearing your history of "black dots" before the headache (considered an "aura"), sensitivity to light, some nausea and other symptoms, it is likely that you are suffering from a Migraine headache. You received pain medication (Toradol), Benedryl, and anti-nausea (Reglan) while here. It is recommended that you try Benadryl at home for your dizziness. If your migraine continues, follow up with your primary care provider for treatment/plan of treatment before next migraine. Please return to the ED if new or worsening symptoms.
[2018-06-05] MEDS ORDERED: Metoclopramide 10 MG/2 ML SDV IVPUSH ONE (20:54)
[2018-06-05] MEDS ORDERED: diphenhydrAMINE 50 MG/ML SDV IVPUSH ONE (20:54)
[2018-06-05] MEDS ORDERED: Ketorolac 30 MG/ML SDV IVPUSH ONE (20:54)
[2018-06-05] MEDS ORDERED: HYDROmorphone 0.5 MG/0.5 ML Syringe IVPUSH ONE (20:54)
[2018-06-05] MEDS ORDERED: HYDROmorphone 1 MG/ML Syringe ONE (21:05)
== END 2018-06-05 21:43 | disposition home or self-care (01) ==
LOC: JD.ED 19:35
DX: G43.909 Migraine, unspecified, not intractable, without status migrainosus (principal)
CPT/HCPCS: 96374; 96375; 99283; J1200; J1885; J2765; 99284

== ENCOUNTER 2018-08-22 12:59 | Emergency (ER) | payer MEDICAID ==
[2018-08-22] MEDS ORDERED: Ketorolac 30 MG/ML SDV IM ONE (13:46)
--- NOTE | 2018-08-22 13:52 | EDM.PDOC ---
ED HPI GENERAL MEDICAL PROBLEM - General Chief Complaint: Chest Pain Stated Complaint: CHEST PAIN Time Seen by Provider: 08/22/18 13:39 Source of Information: Reports: Patient, RN Notes Reviewed History Limitations: Reports: No Limitations - History of Present Illness INITIAL COMMENTS - FREE TEXT/NARRATIVE: Patient is a 22-year-old female who presents to the ED for the evaluation of left anterior chest wall pain and left arm pain. 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 The patient notes she is left-hand dominant. The patient thought maybe she lifted something wrong or had some other issue that was related to work, did not think much of it however she woke up this morning when about her morning routine and everything was fine and she went to work and then roughly around 10:30 again today she had some pain that settled into her left anterior chest wall and also with the left arm pain as noted from last night. She does not have any issues with heartburn or anxiety at this time, she further denies any shortness of breath with this. She states the left anterior chest pain is in the midportion of her chest and underneath her right breast with some radiation to her left shoulder blade. The patient has not taken any medications as she was afraid to cut she is breast-feeding at this time. The patient notes that she also had some slight left-sided neck discomfort and may have slept wrong as well. She states the pain kind of comes and goes in waves like lightning. Treatments TECHNICIAN TEST SYSTEMS: Reports: Other (see below) Other Treatments TECHNICIAN TEST SYSTEMS: none Chest Pain Score (Numeric/FACES): 5 Left Arm Pain Score (Numeric/FACES): 7 - Related Data Allergies Allergy/AdvReac Type Severity Reaction Status Date / Time No Known Allergies Allergy Verified 06/05/18 20:00 Home Meds: Home Meds . 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: Psychiatric History: Reports: Anxiety, Panic Attack - Past Surgical History Female Surgical History: Reports: D&C Social & Family History - Tobacco Use Smoking Status *Q: Never Smoker - Caffeine Use Caffeine Use: Reports: Tea - Recreational Drug Use Recreational Drug Use: No - Living Situation & Occupation Living situation: Reports: Single, with Significant Other (Boyfriend), with Family (2 kids) Occupation: Unemployed ED ROS GENERAL - Review of Systems Review Of Systems: See Below Constitutional: Reports: No Symptoms HEENT: Reports: No Symptoms Respiratory: Denies: Shortness of Breath Cardiovascular: Reports: Chest Pain (left anterior chest pain). Denies: Dyspnea on Exertion, Edema, Lightheadedness GI/Abdominal: Reports: No Symptoms : Reports: No Symptoms Musculoskeletal: Reports: Neck Pain (Left sided), Arm Pain (Left arm) Skin: Reports: No Symptoms Neurological: Reports: Numbness, Tingling Psychiatric: Reports: No Symptoms Hematologic/Lymphatic: Reports: No Symptoms Immunologic: Reports: No Symptoms ED EXAM, GENERAL - Physical Exam Exam: See Below Exam Limited By: No Limitations General Appearance: Alert, WD/WN, No Apparent Distress Head: Atraumatic, Normocephalic Neck: Normal Inspection, Supple, Full Range of Motion, Tender Lateral (Left sided point tenderness ) Respiratory/Chest: No Respiratory Distress, Lungs Clear, Normal Breath Sounds, No Accessory Muscle Use, Other (reproducible chest tenderness to 3-4th rib of midaxillary left chest) Cardiovascular: Normal Peripheral Pulses, Regular Rate, Rhythm, No Murmur Extremities: Normal Inspection, Normal Range of Motion, Normal Capillary Refill Neurological: Alert, Oriented, Normal Cognition, Normal Gait, Normal Reflexes, No Motor/Sensory Deficits Psychiatric: Normal Affect, Normal Mood Skin Exam: Warm, Dry, Intact, Normal Color, No Rash Course - Vital Signs Last Recorded V/S: Last Vital Signs Temp 97.7 F 08/22/18 13:22 Pulse 65 08/22/18 13:22 Resp 20 08/22/18 13:22 BP 103/64 08/22/18 13:22 Pulse Ox 100 08/22/18 13:22 - Orders/Labs/Meds Meds: Medications Discontinued Medications Generic Name Dose Route Start Last Admin Trade Name Freq PRN Reason Stop Dose Admin Ketorolac Tromethamine 30 mg 08/22/18 13:46 08/22/18 14:21 Toradol IM 08/22/18 13:47 30 mg ONETIME ONE Administration - Re-Assessments/Exams Free Text/Narrative Re-Assessment/Exam: 05/22/19 13:52 Patient presents to the ED for the evaluation of left-sided chest and arm pain. Her chest pain is reproducible with palpation of her left chest, which would be suggestive of costochondritis at this time I have ordered 30 mg IM Toradol for pain relief to see if this doesn't help. 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 08/22/18 15:11 Patient states that she feels some relief, however there is still some strain in her left neck and into her left arm. The symptoms can last a few weeks however, the patient will be discharged with general conservative measures Departure - Departure Time of Disposition: 15:11 Disposition: Home, Self-Care 01 Condition: Fair Clinical Impression: Costochondral chest pain, Left arm pain Instructions: Costochondritis, [id number] Referrals: Oliver Lemus PA [Primary Care Provider] - Forms: ED Department Discharge Additional Instructions: You have been evaluated in the ED for your left chest/arm pain Your symptoms are likely due to costochondritis, this is an irritation/ inflammation of the the nerves near the ribs. Please use ice/heat as tolerated to the affected area. You may take tylenol 500 mg or ibuprofen 600mg q6 hrs for pain relief. Please do so until you have a tolerable level of pain with activity. Do not exceed 4000mg tylenol, Do not exceed 3200mg ibuprofen in a 24 hour time period Please return to ED if your symptoms should change or worsen.
== END 2018-08-22 15:52 | disposition home or self-care (01) ==
LOC: JD.ED 12:59
DX: R07.1 Chest pain on breathing (principal); M79.602 Pain in left arm; F41.9 Anxiety disorder, unspecified
CPT/HCPCS: 96372; 99284; J1885; 99283

== ENCOUNTER 2018-09-18 21:03 | Emergency (ER) | payer MEDICAID ==
[2018-09-18] MEDS ORDERED: Fluorescein 0.6 MG Ophth Strip EYELF ONE (21:38)
--- NOTE | 2018-09-18 21:46 | EDM.PDOC ---
ED HPI GENERAL MEDICAL PROBLEM - General Chief Complaint: ENT Problem Stated Complaint: EYE PROBLEM Time Seen by Provider: 09/18/18 21:16 Source of Information: Reports: Patient, RN Notes Reviewed History Limitations: Reports: No Limitations - History of Present Illness INITIAL COMMENTS - FREE TEXT/NARRATIVE: Patient is a 22-year-old female who presents to the ED for evaluation of left eye pain. The patient states that just prior to arrival she was at [facility] with her son, her son was holding a toy in a cardboard box, and she went to look at him and resulted only ended up poking her eye on the corner of the toy box. She states that initially she felt okay, and then she began to have some blurred vision with some floaters. She denies any curtain falling sensations onto her field of vision. She states that she is supposed to wear glasses but does not. The RN attempted to do visual acuity, but this was unsuccessful as she does not have her corrective lenses. The patient denies any sort of foreign body sensation in her eye. - Related Data Allergies Allergy/AdvReac Type Severity Reaction Status Date / Time No Known Allergies Allergy Verified 09/18/18 21:13 Home Meds: Home Meds . 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: Musculoskeletal History: Reports: None Neurological History: Reports: None Psychiatric History: Reports: Anxiety, Panic Attack Endocrine/Metabolic History: Reports: None Hematologic History: Reports: None Immunologic History: Reports: None Oncologic (Cancer) History: Reports: None Dermatologic History: Reports: None - Infectious Disease History Infectious Disease History: Reports: None - Past Surgical History Head Surgeries/Procedures: Reports: None Female Surgical History: Reports: D&C Social & Family History - Tobacco Use Smoking Status *Q: Never Smoker - Caffeine Use Caffeine Use: Reports: None - Recreational Drug Use Recreational Drug Use: No - Living Situation & Occupation Living situation: Reports: Single, with Significant Other (Boyfriend), with Family (2 kids) Occupation: Unemployed ED ROS GENERAL - Review of Systems Review Of Systems: See Below Constitutional: Reports: No Symptoms HEENT: Reports: Vision Change (blurriness/eye pain). Denies: Sinus Problem Respiratory: Reports: No Symptoms Cardiovascular: Reports: No Symptoms Endocrine: Reports: No Symptoms GI/Abdominal: Reports: No Symptoms : Reports: No Symptoms Musculoskeletal: Reports: No Symptoms Skin: Reports: No Symptoms Neurological: Denies: Dizziness, Headache, Numbness, Tingling Psychiatric: Reports: No Symptoms Hematologic/Lymphatic: Reports: No Symptoms Immunologic: Reports: No Symptoms ED EXAM GENERAL W FULL EYE - Physical Exam Exam: See Below Exam Limited By: No Limitations General Appearance: Alert, WD/WN, No Apparent Distress Eye Exam: Bilateral Eye: EOMI, Normal Inspection, PERRL Eyelids: Bilateral: Normal Appearance Conjunctiva & Sclera: Bilateral: Normal Appearance Extraocular Movements: Bilateral: Intact Pupils: Normal Accommodation Pupillary Size: Bilateral: 3 mm Pupillary Reaction: Bilateral: Brisk Anterior Chamber: Bilateral: Normal Appearance Posterior Chamber: Bilateral: Normal Funduscopic Ears: Normal External Exam, Normal TMs Nose: Normal Inspection, Normal Mucosa, No Blood Throat/Mouth: Normal Inspection, Normal Lips, Normal Teeth, Normal Gums, Normal Oropharynx, Normal Voice, No Airway Compromise Head: Atraumatic, Normocephalic Neck: Normal Inspection, Supple, Non-Tender, Full Range of Motion Respiratory/Chest: No Respiratory Distress, Lungs Clear, Normal Breath Sounds, No Accessory Muscle Use, Chest Non-Tender Cardiovascular: Normal Peripheral Pulses, Regular Rate, Rhythm, No Murmur Neurological: Alert, Oriented, CN II-XII Intact (grossly), Normal Cognition, No Motor/Sensory Deficits Psychiatric: Normal Affect, Normal Mood Skin Exam: Warm, Dry, Intact, Normal Color, No Rash Course - Vital Signs Last Recorded V/S: Last Vital Signs Temp 98.6 F 09/18/18 21:11 Pulse 66 09/18/18 21:11 Resp 16 09/18/18 21:11 BP 117/69 09/18/18 21:11 Pulse Ox 100 09/18/18 21:11 - Orders/Labs/Meds Orders: Active Orders 24 hr Category Date Time Status Erythromycin Base [Erythromycin 0.5% Ophth Oint] Med 09/18/18 22:13 Once 1 gm EYEBOTH ONETIME ONE Meds: Medications Discontinued Medications Generic Name Dose Route Start Last Admin Trade Name Freq PRN Reason Stop Dose Admin Fluorescein Sodium 0.6 mg 09/18/18 21:38 Ful-Holly EYELF 09/18/18 21:39 ONETIME ONE - Re-Assessments/Exams Free Text/Narrative Re-Assessment/Exam: 09/18/18 21:45 Patient presents to the ED for evaluation of left eye pain. Have ordered recent to examine for a possible corneal abrasion, however there is a low likelihood that anything is wrong with the left eye. The patient does not wear her glasses normally, so visual acuity was not obtained at this ER visit. 09/18/18 22:14 Patient's eye was examined with fluorescein, there was no visible corneal abrasions, but patient still feels some slight irritation. Have ordered erythromycin and explained it's use to the patient. I have directed her to f/u with optometry if symptoms are not much better in 1-2 days time. Departure - Departure Time of Disposition: 22:16 Disposition: Home, Self-Care 01 Condition: Fair Clinical Impression: Left eye pain, Blurry vision, left eye - Discharge Information *PRESCRIPTION DRUG MONITORING PROGRAM REVIEWED*: No *COPY OF PRESCRIPTION DRUG MONITORING REPORT IN PATIENT SVETLANA: No Instructions: Visual Disturbances Referrals: Oliver Lemus PA [Primary Care Provider] - Forms: ED Department Discharge Additional Instructions: You have been evaluated in the ED today for your left eye pain. You have been provided with erythromycin ointment, please use 1 cm ribbon to the left eyelid margin every 4 hours as needed, for eye lubrication/pain relief. Recommend follow-up with optometry in the next day or 2 if your symptoms are not much better. Please return to the ER if your symptoms should change or worsen. - My Orders Last 24 Hours: My Active Orders 09/18/18 22:13 Erythromycin Base [Erythromycin 0.5% Ophth Oint] 1 gm EYEBOTH ONETIME ONE - Assessment/Plan Last 24 Hours: My Active Orders 09/18/18 22:13 Erythromycin Base [Erythromycin 0.5% Ophth Oint] 1 gm EYEBOTH ONETIME ONE
[2018-09-18] MEDS ORDERED: Erythromycin Base 0.5% Ophth Oint 1 GM Tube EYEBOTH ONE (22:13)
== END 2018-09-18 22:32 | disposition home or self-care (01) ==
LOC: JD.ED 21:03
DX: H53.8 Other visual disturbances (principal); H57.12 Ocular pain, left eye
CPT/HCPCS: 99283; A9270; 99282

== ENCOUNTER 2018-12-29 11:00 | Emergency (ER) | payer MEDICAID ==
[2018-12-29] MEDS ORDERED: Sodium Chloride 0.9% 1,000 ML IV ONE (11:18)
[2018-12-29] MEDS ORDERED: Sodium Chloride 0.9% 10 ML Syringe FLUSH PRN (11:18)
--- NOTE | 2018-12-29 11:40 | EDM.PDOC ---
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 The patient noticed this started last night around 7:30 or 8 PM, she states she went the bathroom and noticed quite a bit of blood in her panties. She states that overnight and through this morning she has used about a half a pack of super absorbency pads. She does note some blood clots along with the bleeding. She complains of some lower pelvic discomfort and cramping, some mild nausea, emesis 1 and no dysuria, urinary frequency or urgency, or diarrhea. She has no chest pain or no shortness of breath. Patient states she is unsure if she be or not, as she has had unprotected sex after her last menstrual period which was at the beginning of December, she notes this was normal for her. She is a A1. She has no primary care physician. Pelvic Pain Score (Numeric/FACES): 5 - Related Data Allergies Allergy/AdvReac Type Severity Reaction Status Date / Time No Known Allergies Allergy Verified 12/29/18 11:09 Home Meds: Home Meds . [No Known Home Meds] 06/05/18 [History] Past Medical History - Past Health History Medical/Surgical History: Denies Medical/Surgical History HEENT History: Reports: Impaired Vision Cardiovascular History: Reports: None Respiratory History: Reports: None Gastrointestinal History: Reports: None CA[employer] SERVER History: Reports: Musculoskeletal History: Reports: None Neurological History: Reports: None Psychiatric History: Reports: Anxiety, Panic Attack Endocrine/Metabolic History: Reports: None Hematologic History: Reports: None Immunologic History: Reports: None Oncologic (Cancer) History: Reports: None Dermatologic History: Reports: None - Infectious Disease History Infectious Disease History: Reports: None - Past Surgical History Head Surgeries/Procedures: Reports: None Female Surgical History: Reports: D&C Social & Family History - Tobacco Use Smoking Status *Q: Never Smoker - Caffeine Use Caffeine Use: Reports: None - Recreational Drug Use Recreational Drug Use: No - Living Situation & Occupation Living situation: Reports: Single, with Significant Other (Boyfriend), with Family (2 kids) Occupation: Unemployed ED ROS GENERAL - Review of Systems Review Of Systems: See Below Constitutional: Denies: Fever, Chills HEENT: Reports: No Symptoms Respiratory: Denies: Shortness of Breath Cardiovascular: Denies: Chest Pain Endocrine: Reports: No Symptoms GI/Abdominal: Reports: Abdominal Pain (lower pelvic pain), Nausea, Vomiting (x1 episode). Denies: Constipation, Diarrhea : Reports: Other (vaginal bleeding). Denies: Discharge, Dysuria, Frequency, Urgency Musculoskeletal: Reports: No Symptoms Skin: Reports: No Symptoms Neurological: Reports: No Symptoms Psychiatric: Reports: No Symptoms Hematologic/Lymphatic: Reports: No Symptoms Immunologic: Reports: No Symptoms ED EXAM, RENAL/ - Physical Exam Exam: See Below Exam Limited By: No Limitations General Appearance: Alert, WD/WN, No Apparent Distress Eye Exam: Bilateral Eye: EOMI, Normal Inspection, PERRL Throat/Mouth: Normal Inspection, Normal Lips, Normal Teeth, Normal Gums, Normal Oropharynx, Normal Voice, No Airway Compromise Head: Atraumatic, Normocephalic Neck: Normal Inspection Respiratory/Chest: No Respiratory Distress, Lungs Clear, Normal Breath Sounds, No Accessory Muscle Use, Chest Non-Tender Cardiovascular: Normal Peripheral Pulses, Regular Rate, Rhythm, No Murmur GI/Abdominal: Normal Bowel Sounds, Soft, No Distention, No Mass, Tender (pelvic/ suprapubic tenderness) (Female) Exam: Normal External Exam (small amount of blood noted to entrance of vagina), Normal Speculum Exam, Uterine Tenderness (generalized pelvic tenderness on bimanual exam), Vaginal Bleeding (enough to obscure a good view of cervix. No tissue noted, but the blood did pool in bottom of speculum). No: Adnexal Mass Extremities: Normal Inspection, Normal Capillary Refill Neurological: Alert, Oriented, Normal Cognition, No Motor/Sensory Deficits Psychiatric: Normal Affect, Normal Mood Skin Exam: Warm, Dry, Intact, Normal Color, No Rash Course - Vital Signs Last Recorded V/S: Last Vital Signs Temp 97.8 F 12/29/18 11:09 Pulse 73 12/29/18 11:09 Resp 16 12/29/18 11:09 BP 115/70 12/29/18 11:09 Pulse Ox 100 12/29/18 11:09 - Orders/Labs/Meds Orders: Active Orders 24 hr Category Date Time Status Peripheral IV Care [RC] . DIRECTED Care 12/29/18 11:18 Ordered PATIENT RETYPE [BBK] Routine Lab 12/29/18 12:38 Ordered Sodium Chloride 0.9% [Normal Saline] 1,000 ml Med 12/29/18 11:18 Ordered IV ONETIME Sodium Chloride 0.9% [Saline Flush] Med 12/29/18 11:18 Ordered 10 ml FLUSH ASDIRECTED PRN Peripheral IV Insertion Adult [OM.PC] Routine Oth 12/29/18 11:18 Ordered Medication Orders Sodium Chloride (Normal Saline) 1,000 mls @ 500 mls/hr IV ONETIME ONE Stop: 12/29/18 13:17 Last Admin: 12/29/18 11:53 Dose: 500 mls/hr Sodium Chloride (Saline Flush) 10 ml FLUSH ASDIRECTED PRN PRN Reason: Keep Vein Open Last Admin: 12/29/18 12:11 Dose: 10 ml Labs: Laboratory Tests 12/29/18 12/29/18 12/29/18 Range/Units 11:52 11:52 11:52 WBC 6.77 (3.98-10.04) K/mm3 RBC 4.90 (3.98-5.22) M/mm3 Hgb 15.5 (11.2-15.7) gm/dl Hct 46.4 H (34.1-44.9) % MCV 94.7 (79.4-94.8) fl MCH 31.6 (25.6-32.2) pg MCHC 33.4 (32.2-35.5) g/dl RDW Std Deviation 43.3 (36.4-46.3) fL Plt Count 289 (182-369) K/mm3 MPV 9.2 L (9.4-12.3) fl Neut % (Auto) 58.8 (34.0-71.1) % Lymph % (Auto) 31.6 (19.3-51.7) % [place] % (Auto) 6.1 (4.7-12.5) % Eos % (Auto) 2.8 (0.7-5.8) Baso % (Auto) 0.4 (0.1-1.2) % Neut # (Auto) 3.98 (1.56-6.13) K/mm3 Lymph # (Auto) 2.14 (1.18-3.74) K/mm3 [place] # (Auto) 0.41 H (0.24-0.36) K/mm3 Eos # (Auto) 0.19 (0.04-0.36) K/mm3 Baso # (Auto) 0.03 (0.01-0.08) K/mm3 Sodium 139 (136-145) mEq/L Potassium 4.1 (3.5-5.1) mEq/L Chloride 105 (98-107) mEq/L Carbon Dioxide 29 (21-32) mEq/L Anion Gap 9.1 (5-15) BUN 9 (7-18) mg/dL Creatinine 0.8 (0.55-1.02) mg/dL Est Cr Clr Drug Dosing 89.70 mL/min Estimated GFR (MDRD) > 60 (>60) mL/min BUN/Creatinine Ratio 11.3 L (14-18) Glucose 91 (74-106) mg/dL Calcium 9.5 (8.5-10.1) mg/dL Total Bilirubin 0.3 (0.2-1.0) mg/dL AST 11 L (15-37) U/L ALT 17 (14-59) U/L Alkaline Phosphatase 67 (46-116) U/L Total Protein 7.5 (6.4-8.2) g/dl Albumin 3.8 (3.4-5.0) g/dl Globulin 3.7 gm/dL Albumin/Globulin Ratio 1.0 (1-2) HCG, Qual Negative (NEGATIVE) HCG, Quant < 1.0 mIU/mL Blood Type Gel Antibody Screen 12/29/18 Range/Units 11:52 WBC (3.98-10.04) K/mm3 RBC (3.98-5.22) M/mm3 Hgb (11.2-15.7) gm/dl Hct (34.1-44.9) % MCV (79.4-94.8) fl MCH (25.6-32.2) pg MCHC (32.2-35.5) g/dl RDW Std Deviation (36.4-46.3) fL Plt Count (182-369) K/mm3 MPV (9.4-12.3) fl Neut % (Auto) (34.0-71.1) % Lymph % (Auto) (19.3-51.7) % [place] % (Auto) (4.7-12.5) % Eos % (Auto) (0.7-5.8) Baso % (Auto) (0.1-1.2) % Neut # (Auto) (1.56-6.13) K/mm3 Lymph # (Auto) (1.18-3.74) K/mm3 [place] # (Auto) (0.24-0.36) K/mm3 Eos # (Auto) (0.04-0.36) K/mm3 Baso # (Auto) (0.01-0.08) K/mm3 Sodium (136-145) mEq/L Potassium (3.5-5.1) mEq/L Chloride (98-107) mEq/L Carbon Dioxide (21-32) mEq/L Anion Gap (5-15) BUN (7-18) mg/dL Creatinine (0.55-1.02) mg/dL Est Cr Clr Drug Dosing mL/min Estimated GFR (MDRD) (>60) mL/min BUN/Creatinine Ratio (14-18) Glucose (74-106) mg/dL Calcium (8.5-10.1) mg/dL Total Bilirubin (0.2-1.0) mg/dL AST (15-37) U/L ALT (14-59) U/L Alkaline Phosphatase (46-116) U/L Total Protein (6.4-8.2) g/dl Albumin (3.4-5.0) g/dl Globulin gm/dL Albumin/Globulin Ratio (1-2) HCG, Qual (NEGATIVE) HCG, Quant mIU/mL Blood Type A POSITIVE Gel Antibody Screen Negative Meds: Medications Generic Name Dose Route Start Last Admin Trade Name Freq PRN Reason Stop Dose Admin Sodium Chloride 1,000 mls @ 500 mls/hr 12/29/18 11:18 12/29/18 11:53 Normal Saline IV 12/29/18 13:17 500 mls/hr ONETIME ONE Administration Sodium Chloride 10 ml 12/29/18 11:18 12/29/18 12:11 Saline Flush FLUSH 10 ml ASDIRECTED PRN Administration Keep Vein Open - Re-Assessments/Exams Free Text/Narrative Re-Assessment/Exam: 12/29/18 11:40 Patient presents to the ED for evaluation of heavy vaginal bleeding. She is unsure at this time, I have ordered an hCG qualitative, hCG quantitative, CBC, CMP, type and screen, IV to be placed with some IV fluids, give her qualitative hCG is , I will order a transvaginal ultrasound to further investigate possible ectopic . 12/29/18 12:51 Patient's labs are done, and demonstrate no acute abnormalities, patient is not . Her blood type is A+. It is likely that she could have a early. Or some breakthrough dysfunctional uterine bleeding. We'll give her the option for Provera or to go home and rest, and follow up with [employer] early this week if the bleeding has not slowed down. Departure - Departure Time of Disposition: 12:53 Disposition: Home, Self-Care 01 Condition: Fair Clinical Impression: Vaginal bleeding - Discharge Information *PRESCRIPTION DRUG MONITORING PROGRAM REVIEWED*: No *COPY OF PRESCRIPTION DRUG MONITORING REPORT IN PATIENT SVETLANA: No Instructions: Abnormal Uterine Bleeding Referrals: PCP,None [Primary Care Provider] - Forms: ED Department Discharge Additional Instructions: You evaluated in the ER today for your vaginal bleeding. You are not at today's visit, this might just be some breakthrough early bleeding. Recommend that you go home and rest, you may take 600 mg ibuprofen every 6 hours for pelvic discomfort. Try to keep yourself well hydrated over the weekend, if the bleeding has not slowed down much, recommend that you follow up in clinic with [employer] provider of choice early next week for a recheck. Please return to the ED if your symptoms change or worsen. - My Orders Last 24 Hours: My Active Orders 12/29/18 11:18 Peripheral IV Care [RC] . DIRECTED Sodium Chloride 0.9% [Normal Saline] 1,000 ml IV ONETIME Sodium Chloride 0.9% [Saline Flush] 10 ml FLUSH ASDIRECTED PRN Peripheral IV Insertion Adult [OM.PC] Routine 12/29/18 12:38 PATIENT RETYPE [BBK] Routine - Assessment/Plan Last 24 Hours: My Active Orders 12/29/18 11:18 Peripheral IV Care [RC] . DIRECTED Sodium Chloride 0.9% [Normal Saline] 1,000 ml IV ONETIME Sodium Chloride 0.9% [Saline Flush] 10 ml FLUSH ASDIRECTED PRN Peripheral IV Insertion Adult [OM.PC] Routine 12/29/18 12:38 PATIENT RETYPE [BBK] Routine
== END 2018-12-29 13:36 | disposition home or self-care (01) ==
LOC: JD.ED 11:00
DX: N93.9 Abnormal uterine and vaginal bleeding, unspecified (principal)
CPT/HCPCS: 36415; 80053; 84702; 84703; 85025; 86850; 86900; 86901; 96360; 96361; 99284; J7040

== ENCOUNTER 2019-05-06 18:26 | Emergency (ER) | payer MEDICAID ==
--- NOTE | 2019-05-06 23:04 | EDM.PDOC ---
ED HPI GENERAL MEDICAL PROBLEM - General Chief Complaint: Genitourinary Problem Stated Complaint: BACK PAIN TROUBLE URINATING Time Seen by Provider: 05/06/19 21:28 Source of Information: Reports: Patient, Family (Mother) History Limitations: Reports: No Limitations - History of Present Illness INITIAL COMMENTS - FREE TEXT/NARRATIVE: Mrs. Kaur is a pleaseant 23-year-old woman with a past medical history significant for untreated anxiety and panic disorder, who is status post a single therapeutic , who is accompanied to the ED by her mother, stating that she has had 3 to 4 days of a vaginal discharge, urinary frequency, and bilateral lower back pain. She describes the vaginal discharge as white and lumpy. She denies vaginal itchiness. She also reports having genital pressure and urgency when she urinates, however, she denies dysuria. No recent fever. No prior similar symptoms. The patient did not take any [id number]-[id number] or home remedies prior to coming to the ED. No prior medical evaluation for this complaint. She states that she was treated for chlamydia in February, but has not followed up since. . LMP 04/18/2019. 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 She did not receive an influenza vaccine this season, and declined an offer to receive one here today. 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: Therapeutic (x 1) : 3 Para: 2 Psychiatric History: Reports: Anxiety (untreated), Panic Attack (untreated) - Past Surgical History Female Surgical History: Reports: D&C (x 1) Social & Family History - Tobacco Use Smoking Status *Q: Current Some Day Smoker Years of Tobacco use: 5 Packs/Tins Daily: 0.1 - Caffeine Use Caffeine Use: Reports: None - Alcohol Use Alcohol Use History: Yes Alcohol Use Frequency: Socially - Recreational Drug Use Recreational Drug Use: Yes Drug Use in Last 12 Months: No Recreational Drug Type: Reports: Marijuana/Hashish (last smoked 2015) - Living Situation & Occupation Living situation: Reports: , with Spouse, with Family (2 kids) Occupation: Unemployed ED ROS GENERAL - Review of Systems Review Of Systems: Comprehensive ROS is negative, except as noted in HPI. ED EXAM, RENAL/ - Physical Exam Exam: See Below Exam Limited By: No Limitations General Appearance: Alert, WD/WN, No Apparent Distress Eye Exam: Bilateral Eye: EOMI, Normal Inspection Ears: Normal External Exam, Hearing Grossly Normal Nose: Normal Inspection Throat/Mouth: Normal Inspection, Normal Lips, Normal Voice, No Airway Compromise Head: Atraumatic, Normocephalic Neck: Normal Inspection, Full Range of Motion Respiratory/Chest: No Respiratory Distress, Lungs Clear, Normal Breath Sounds, No Accessory Muscle Use Cardiovascular: Normal Peripheral Pulses, Regular Rate, Rhythm, No Edema, No Gallop, No JVD, No Murmur, No Rub GI/Abdominal: Normal Bowel Sounds, Soft, No Organomegaly, No Distention, No Abnormal Bruit, No Mass, Tender (minimal, suprapubic only - nontender elsewhere) (Female) Exam: Normal External Exam, Normal Speculum Exam, Other (Thick, off- white vaginal discharge). No: Cervix Motion Tenderness, Vaginal Bleeding, Vaginal Lesions Rectal (Female) Exam: Deferred Back Exam: Normal Inspection, Full Range of Motion, Other (Tenderness across lower back, SI joint to SI joint). No: CVA Tenderness (L), CVA Tenderness (R) Extremities: Normal Inspection, Normal Range of Motion, No Pedal Edema, Normal Capillary Refill Neurological: Alert, Oriented, Normal Cognition, No Motor/Sensory Deficits Psychiatric: Normal Affect Skin Exam: Warm, Dry, Intact, Normal Color, No Rash Course - Vital Signs Last Recorded V/S: Last Vital Signs Temp 37.8 C 05/06/19 18:56 Pulse 79 05/06/19 18:56 Resp 16 05/06/19 18:56 BP 101/61 05/06/19 18:56 Pulse Ox 97 05/06/19 18:56 - Orders/Labs/Meds Labs: Laboratory Tests 05/06/19 05/06/19 Range/Units 21:22 21:22 Urine Color Yellow (Yellow) Urine Appearance Clear (Clear) Urine pH 6.5 (5.0-8.0) Ur Specific [place] > or = 1.030 (1.005-1.030) Urine Protein Negative (Negative) Urine Glucose (UA) Negative (Negative) Urine Ketones 1+ H (Negative) Urine Occult Blood Negative (Negative) Urine Nitrite Negative (Negative) Urine Bilirubin Negative (Negative) Urine Urobilinogen 0.2 (0.2-1.0) Ur Leukocyte Esterase Negative (Negative) Urine HCG, Qual Negative (NEGATIVE) Meds: Medications Discontinued Medications Generic Name Dose Route Start Last Admin Trade Name Aruna PRN Reason Stop Dose Admin Metronidazole 500 mg 05/07/19 00:52 05/07/19 01:06 Flagyl PO 05/07/19 00:53 500 mg ONETIME STA Administration - Re-Assessments/Exams Free Text/Narrative Re-Assessment/Exam: 05/06/19 22:53 The urinalysis and urine test obtained by the patient's nurse are unremarkable and not consistent with a UTI. Her urine test is negative. The patient could have a vaginal infection - I will perform a pelvic exam. 05/06/19 23:35 On pelvic examination, a thick, off-white discharge was present, however, this could be normal. No other abnormalities were seen. 05/07/19 00:47 The patient's wet prep finds no yeast, no trichomonas, and the trichomonas antigen is negative, few clue cells, many WBCs, no RBCs, and many epithelial cells. The patient's wet prep is consistent with BV. I will offer treatment with either oral or intravaginal metronidazole. 05/07/19 00:53 Test results discussed with the patient and her mother. The patient prefers oral metronidazole. She will be started on metronidazole tonight, and I will submit a prescription to complete a 7-day course. I will refer her to Virginia Hoyos NP, in the event that her symptoms do not improve. Departure - Departure Time of Disposition: 00:54 Disposition: Home, Self-Care 01 Condition: Good Clinical Impression: Bacterial vaginosis - Discharge Information *PRESCRIPTION DRUG MONITORING PROGRAM REVIEWED*: Not Applicable *COPY OF PRESCRIPTION DRUG MONITORING REPORT IN PATIENT SVETLANA: Not Applicable Prescriptions: metroNIDAZOLE [Metronidazole] 1 tab PO Q12H #13 tablet Instructions: Bacterial Vaginosis, [id number] Referrals: Virginia Hoyos NP [Nurse Practitioner] - Forms: ED Department Discharge Additional Instructions: You were seen in the emergency room for several days of a vaginal discharge and urinary frequency, along with lower back pain. Workup in the ER included a urinalysis, a urine test, a vaginal wet prep and a vaginal culture. Your urinalysis and urine test were unremarkable - you do not have a UTI, and you are not , however, the vaginal wet prep indicates that you may have bacterial vaginosis, also known as BV. You have been started on the antibiotic metronidazole (Flagyl), and a prescription for metronidazole has been sent to the [facility], located on [facility]. Take one tablet of metronidazole every 12 hours, starting this afternoon, 05/07/2019, as prescribed. Finish the entire prescription unless told otherwise by a provider. If your symptoms fail to improve, please follow-up with Virginia Hoyos NP, in the [facility]'s [facility] clinic. Even if you do not need to follow-up with her for your current symptoms, you can establish her as your woman's health PCP. If any other problems, please do not hesitate to return to the ER. Sepsis Event Note - Evaluation Sepsis Screening Result: No Definite Risk - Focused Exam Date Exam was Performed: 05/10/19 Time Exam was Performed: 16:34
[2019-05-07] MEDS ORDERED: metroNIDAZOLE 500 MG Tab PO STA (00:52)
== END 2019-05-07 01:09 | disposition home or self-care (01) ==
LOC: JD.ED 18:26
DX: N76.0 Acute vaginitis (principal); B96.89 Other specified bacterial agents as the cause of diseases classified elsewhere; F17.210 Nicotine dependence, cigarettes, uncomplicated
CPT/HCPCS: 81003; 81025; 87070; 87077; 87181; 87184; 87210; 87808; 99283; A9270

== ENCOUNTER 2019-08-23 18:20 | Emergency (ER) | payer MEDICAID ==
[2019-08-23] MEDS ORDERED: Sodium Chloride 0.9% 1,000 ML IV ONE (19:00)
[2019-08-23] MEDS ORDERED: Sodium Chloride 0.9% 10 ML Syringe FLUSH PRN (19:00)
--- NOTE | 2019-08-23 19:07 | EDM.PDOC ---
ED HPI GENERAL MEDICAL PROBLEM - General Chief Complaint: Cardiovascular Problem Stated Complaint: 11 WEEKS PG/FAST HEART RATE Time Seen by Provider: 08/23/19 18:48 Source of Information: Reports: Patient, Old Records, RN Notes Reviewed History Limitations: Reports: No Limitations - History of Present Illness INITIAL COMMENTS - FREE TEXT/NARRATIVE: Patient is a 23-year-old female who presents to the ED for evaluation of her perceived fast heart rate. Patient notes that last night she had the feelings of a racing heartbeat, with some mild chest discomfort with this. Patient notes that she is 11 weeks , and is having increased fatigue and some nausea, but she believes the nausea is due to the . She denies any other sick-like symptoms, shortness of breath, headache, lightheadedness dizziness. She states that she is eating and drinking okay, and that she had her first OB appointment yesterday, with Dr. Fink, and everything was going well on the standpoint. Of note she is a G4, with 1 . Patient denies any sort of past medical history of heart or lung issues, but states she does have anxiety for which she is not medicated. Patient notes that her mother has a heart arrhythmia, but cannot remember what it is called. Patient states she is felt like this before when her anxiety is bad. - Related Data Allergies Allergy/AdvReac Type Severity Reaction Status Date / Time No Known Allergies Allergy Verified 08/23/19 18:46 Home Meds: Home Meds . 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 ED EXAM, GENERAL - Physical Exam Exam: See Below Exam Limited By: No Limitations General Appearance: Alert, WD/WN, No Apparent Distress Eye Exam: Bilateral Eye: EOMI, Normal Inspection, PERRL Ears: Normal External Exam Nose: Normal Inspection Throat/Mouth: Normal Inspection, Normal Lips, Normal Teeth, Normal Gums, Normal Oropharynx, Normal Voice, No Airway Compromise Head: Atraumatic, Normocephalic Neck: Normal Inspection Respiratory/Chest: No Respiratory Distress, Lungs Clear, Normal Breath Sounds, No Accessory Muscle Use, Chest Non-Tender Cardiovascular: Normal Peripheral Pulses, Regular Rate, Rhythm, No Murmur Peripheral Pulses: 3+: Radial (L), Radial (R) GI/Abdominal: Normal Bowel Sounds, Soft, Non-Tender, No Distention, No Mass Extremities: Normal Inspection, Normal Capillary Refill Neurological: Alert, Oriented, Normal Cognition, No Motor/Sensory Deficits Psychiatric: Normal Affect, Normal Mood Skin Exam: Warm, Dry, Intact, Normal Color, No Rash EKG INTERPRETATION EKG Date: 08/23/19 Time: 19:06 Rhythm: NSR Rate (Beats/Min): 84 [place]: Normal P-Wave: Present QRS: Normal ST-T: Normal QT: Normal Comparison: NA - No Prior EKG EKG Interpretation Comments: No obvious ischemia or acute ST changes noted, reviewed by myself and Dr. Mortensen. Course - Vital Signs Last Recorded V/S: Last Vital Signs Temp 98.1 F 08/23/19 18:41 Pulse 86 08/23/19 18:41 Resp 18 08/23/19 18:41 BP 107/78 08/23/19 18:41 Pulse Ox 100 08/23/19 18:41 Orthostatic Blood Pressure [ 104/79 Standing] Orthostatic Blood Pressure [ 103/62 Sitting] Orthostatic Blood Pressure [ 94/63 Supine] - Orders/Labs/Meds Orders: Active Orders 24 hr Category Date Time Status EKG Documentation Completion [RC] STAT Care 08/23/19 18:49 Ordered Holter Monitor 48 Hours [RC] .PRN Care 08/23/19 20:10 Ordered Orthostatic Vital Signs [RC] ASDIRECTED Care 08/23/19 19:00 Ordered Peripheral IV Care [RC] . DIRECTED Care 08/23/19 19:00 Ordered Sodium Chloride 0.9% [Saline Flush] Med 08/23/19 19:00 Active 10 ml FLUSH ASDIRECTED PRN Peripheral IV Insertion Adult [OM.PC] Stat Oth 08/23/19 19:00 Ordered Medication Orders Sodium Chloride (Saline Flush) 10 ml FLUSH ASDIRECTED PRN PRN Reason: Keep Vein Open Last Admin: 08/23/19 19:18 Dose: 10 ml Labs: Laboratory Tests 08/23/19 08/23/19 Range/Units 19:15 19:15 WBC 9.17 (3.98-10.04) K/mm3 RBC 4.54 (3.98-5.22) M/mm3 Hgb 14.3 (11.2-15.7) gm/dl Hct 41.8 (34.1-44.9) % MCV 92.1 (79.4-94.8) fl MCH 31.5 (25.6-32.2) pg MCHC 34.2 (32.2-35.5) g/dl RDW Std Deviation 40.4 (36.4-46.3) fL Plt Count 286 (182-369) K/mm3 MPV 8.9 L (9.4-12.3) fl Neut % (Auto) 70.6 (34.0-71.1) % Lymph % (Auto) 22.0 (19.3-51.7) % Bath % (Auto) 6.8 (4.7-12.5) % Eos % (Auto) 0.3 L (0.7-5.8) Baso % (Auto) 0.1 (0.1-1.2) % Neut # (Auto) 6.47 H (1.56-6.13) K/mm3 Lymph # (Auto) 2.02 (1.18-3.74) K/mm3 Bath # (Auto) 0.62 H (0.24-0.36) K/mm3 Eos # (Auto) 0.03 L (0.04-0.36) K/mm3 Baso # (Auto) 0.01 (0.01-0.08) K/mm3 Sodium 141 (136-145) mEq/L Potassium 3.3 L (3.5-5.1) mEq/L Chloride 104 (98-107) mEq/L Carbon Dioxide 26 (21-32) mEq/L Anion Gap 14.3 (5-15) BUN 6 L (7-18) mg/dL Creatinine 0.6 (0.55-1.02) mg/dL Est Cr Clr Drug Dosing 119.60 mL/min Estimated GFR (MDRD) > 60 (>60) mL/min BUN/Creatinine Ratio 10.0 L (14-18) Glucose 126 H (74-106) mg/dL Calcium 9.6 (8.5-10.1) mg/dL Magnesium 1.8 (1.8-2.4) mg/dl Total Bilirubin 0.2 (0.2-1.0) mg/dL AST 11 L (15-37) U/L ALT 20 (14-59) U/L Alkaline Phosphatase 50 (46-116) U/L Troponin I < 0.017 (0.00-0.056) ng/mL Total Protein 7.2 (6.4-8.2) g/dl Albumin 3.3 L (3.4-5.0) g/dl Globulin 3.9 gm/dL Albumin/Globulin Ratio 0.9 L (1-2) TSH 3rd Generation 0.829 (0.358-3.74) uIU/mL Meds: Medications Generic Name Dose Route Start Last Admin Trade Name Freq PRN Reason Stop Dose Admin Sodium Chloride 10 ml 08/23/19 19:00 08/23/19 19:18 Saline Flush FLUSH 10 ml ASDIRECTED PRN Administration Keep Vein Open Discontinued Medications Generic Name Dose Route Start Last Admin Trade Name Freq PRN Reason Stop Dose Admin Sodium Chloride 1,000 mls @ 999 mls/hr 08/23/19 19:00 08/23/19 19:18 Normal Saline IV 08/23/19 20:00 999 mls/hr ONETIME ONE Administration Potassium Chloride 40 meq 08/23/19 20:07 Klor-Con M20 PO 08/23/19 20:08 ONETIME ONE - Re-Assessments/Exams Free Text/Narrative Re-Assessment/Exam: 08/23/19 19:05 Patient presents to the ED for evaluation of her perceived fast heart rate. On the monitor the patient's heart rate did fluctuate from 88 to 105 bpm while sitting there, with not a lot of provocation. Which could just be sinus arrhythmia. Blood pressure at time of triage was mildly low at 107/78, the repeat blood pressure while in the room was 91/70. Patient denies any sort of lightheadedness or dizziness, she could be suffering from dehydration. Nonetheless I have ordered EKG, some basic lab work, orthostatic vital signs, IV to be placed with tentative IV fluids, will likely send the patient home with a Holter monitor for further evaluation and have her follow-up with Dr. Fink for this. 08/23/19 20:09 The patient's potassium is mildly low at 3.3, will order oral replacement at this time. Laboratory evaluation appears to be complete, patient is getting IV fluids likely will discharge her home with a Holter monitor as stated above and have her follow-up with Dr. Fink. Departure - Departure Time of Disposition: 20:11 Disposition: Home, Self-Care 01 Condition: Good Clinical Impression: Rapid palpitations, Hypokalemia Instructions: Potassium Content of Foods, Palpitations, [id number] Referrals: Johana Fink MD [Primary Care Provider] - Forms: ED Department Discharge Additional Instructions: You were evaluated in the ER today regarding your feelings of your heart racing. Evaluation done at today's ER visit, demonstrates no sign of a heart attack, or other acute cardiac etiology that would be causing these symptoms. Laboratory evaluation demonstrated you were mildly low on your potassium, you did receive oral supplementation for this at this ER visit. Your EKG was within normal limits. You have been sent home with a Holter monitor, please wear for the next 48 hours and return to our clinic and/or ER entrance when the tracing is done after 48 hours, so that we may interpret this and you will need to follow-up with Dr. Fink for results of this heart tracing. Your blood pressure was mildly low at today's visit, you did also receive a bag of IV fluids for management of this. Recommend you try the best you can to increase your oral fluid intake to increase your hydration status. Please return to the ER at any time if symptoms change or worsen. Sepsis Event Note - Evaluation Sepsis Screening Result: No Definite Risk - Focused Exam Vital Signs: Vital Signs Temp Pulse Resp BP Pulse Ox 08/23/19 18:41 98.1 F 86 18 107/78 100 Date Exam was Performed: 08/23/19 Time Exam was Performed: 20:10 - My Orders Last 24 Hours: My Active Orders 08/23/19 18:49 EKG Documentation Completion [RC] STAT 08/23/19 19:00 Orthostatic Vital Signs [RC] ASDIRECTED Peripheral IV Care [RC] . DIRECTED Sodium Chloride 0.9% [Saline Flush] 10 ml FLUSH ASDIRECTED PRN Peripheral IV Insertion Adult [OM.PC] Stat 08/23/19 20:10 Holter Monitor 48 Hours [RC] .PRN - Assessment/Plan Last 24 Hours: My Active Orders 08/23/19 18:49 EKG Documentation Completion [RC] STAT 08/23/19 19:00 Orthostatic Vital Signs [RC] ASDIRECTED Peripheral IV Care [RC] . DIRECTED Sodium Chloride 0.9% [Saline Flush] 10 ml FLUSH ASDIRECTED PRN Peripheral IV Insertion Adult [OM.PC] Stat 08/23/19 20:10 Holter Monitor 48 Hours [RC] .PRN
[2019-08-23] MEDS ORDERED: Potassium Chloride 20 MEQ Tab.ER PO ONE (20:07)
== END 2019-08-23 20:41 | disposition home or self-care (01) ==
LOC: JD.ED 18:20
DX: O99.281 Endocrine, nutritional and metabolic diseases complicating pregnancy, first trimester (principal); E87.6 Hypokalemia; Z3A.11 11 weeks gestation of pregnancy
CPT/HCPCS: 36415; 80053; 83735; 84443; 84484; 85025; 93005; 93225; 93226; 96360; 99285; A9270; J7030; 93010; 99283

== ENCOUNTER 2019-10-18 11:14 | Emergency (ER) | payer MEDICAID ==
[2019-10-18] MEDS ORDERED: Sodium Chloride 0.9% 10 ML Syringe FLUSH PRN (11:32)
[2019-10-18] MEDS ORDERED: Ondansetron 4 MG/2 ML SDV IVPUSH ONE (11:46)
[2019-10-18] MEDS ORDERED: HYDROmorphone 0.5 MG/0.5 ML Syringe IVPUSH ONE (11:46)
--- NOTE | 2019-10-18 11:52 | EDM.PDOC ---
ED HPI GENERAL MEDICAL PROBLEM - General Chief Complaint: Abdominal Pain Stated Complaint: 19 WEEKS CRAMPING Time Seen by Provider: 10/18/19 11:25 Source of Information: Reports: Patient, RN Notes Reviewed History Limitations: Reports: No Limitations - History of Present Illness INITIAL COMMENTS - FREE TEXT/NARRATIVE: Patient is a 23 year old female who presents to the ED for the evaluation of her right lower abdomen cramping. She is 19 weeks , a G4, P2, 1 elective . Patient states that she had a OB visit with Dr. Fink yesterday, and everything went just fine. She notes last night however when she was cleaning and she felt a little bit of wetness in her underwear, went to the bathroom and had a little bit of blood-tinged discharge. She states that this was roughly quarter size in nature, and was not a gush of fluids or blood. Patient states she tried using a heat pack last night, and then again this morning along with a hot shower and it did not really seem to help much. She states that she had some cramping to start early this morning, she states they feel like a bad menstrual cramp. She denies any abdominal surgeries, so still retains her appendix and gallbladder, she has had one D&C for the elective . She states that she has been experiencing right lower quadrant abdominal pains, that are sharp in nature as well. She does note she has an issue with constipation, and that her last good bowel movement was yesterday. She denies any fever/chills, cough/shortness of breath, nausea/vomiting/diarrhea. She states that the pain is constantly there, but worsens in waves. It does not radiate anywhere else. She denies any dysuria, urinary frequency or urgency. 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 ED EXAM, GI/ABD - Physical Exam Exam: See Below Exam Limited By: No Limitations General Appearance: Alert, WD/WN, No Apparent Distress Eyes: Bilateral: Normal Appearance Head: Atraumatic, Normocephalic Respiratory/Chest: No Respiratory Distress, Lungs Clear, Normal Breath Sounds, No Accessory Muscle Use, Chest Non-Tender Cardiovascular: Normal Peripheral Pulses, Regular Rate, Rhythm, No Murmur GI/Abdominal Exam: Normal Bowel Sounds, Soft, No Distention, No Mass, Tender (suprapubic tenderness ) (Female) Exam: Other ( heart tones were found to be 153bpm) Back Exam: Normal Inspection, Full Range of Motion Extremities: Normal Inspection, Normal Capillary Refill Neurological: Alert, Oriented, Normal Cognition, No Motor/Sensory Deficits Psychiatric: Normal Affect, Normal Mood Skin Exam: Warm, Dry, Intact, Normal Color, No Rash Course - Vital Signs Last Recorded V/S: Last Vital Signs Temp 97.8 F 10/18/19 11:24 Pulse 94 10/18/19 11:24 Resp 16 10/18/19 11:24 BP 103/68 10/18/19 11:24 Pulse Ox 99 10/18/19 11:24 - Orders/Labs/Meds Orders: Active Orders 24 hr Category Date Time Status Peripheral IV Care [RC] . DIRECTED Care 10/18/19 11:33 Active OB Ltd 1 or More Fetus [US] Stat Exams 10/18/19 14:43 Taken Sodium Chloride 0.9% [Saline Flush] Med 10/18/19 11:32 Active 10 ml FLUSH ASDIRECTED PRN Peripheral IV Insertion Adult [OM.PC] Routine Oth 10/18/19 11:32 Ordered Medication Orders Sodium Chloride (Saline Flush) 10 ml FLUSH ASDIRECTED PRN PRN Reason: Keep Vein Open Last Admin: 10/18/19 12:26 Dose: 10 ml Documented by: CARLOS Labs: Laboratory Tests 0710/18/19 10/18/19 Range/Units 11:50 12:08 12:08 WBC 8.54 (3.98-10.04) K/mm3 RBC 3.91 L (3.98-5.22) M/mm3 Hgb 12.4 D (11.2-15.7) gm/dl Hct 37.3 (34.1-44.9) % MCV 95.4 H D (79.4-94.8) fl MCH 31.7 (25.6-32.2) pg MCHC 33.2 (32.2-35.5) g/dl RDW Std Deviation 44.0 (36.4-46.3) fL Plt Count 247 (182-369) K/mm3 MPV 9.2 L (9.4-12.3) fl Neut % (Auto) 70.4 (34.0-71.1) % Lymph % (Auto) 21.8 (19.3-51.7) % [place] % (Auto) 6.6 (4.7-12.5) % Eos % (Auto) 0.6 L (0.7-5.8) Baso % (Auto) 0.1 (0.1-1.2) % Neut # (Auto) 6.02 (1.56-6.13) K/mm3 Lymph # (Auto) 1.86 (1.18-3.74) K/mm3 [place] # (Auto) 0.56 H (0.24-0.36) K/mm3 Eos # (Auto) 0.05 (0.04-0.36) K/mm3 Baso # (Auto) 0.01 (0.01-0.08) K/mm3 Sodium 141 (136-145) mEq/L Potassium 3.7 (3.5-5.1) mEq/L Chloride 107 (98-107) mEq/L Carbon Dioxide 24 (21-32) mEq/L Anion Gap 13.7 (5-15) BUN 7 (7-18) mg/dL Creatinine 0.7 (0.55-1.02) mg/dL Est Cr Clr Drug Dosing 102.51 mL/min Estimated GFR (MDRD) > 60 (>60) mL/min BUN/Creatinine Ratio 10.0 L (14-18) Glucose 81 (74-106) mg/dL Calcium 8.8 (8.5-10.1) mg/dL Total Bilirubin 0.3 (0.2-1.0) mg/dL AST 13 L (15-37) U/L ALT 16 (14-59) U/L Alkaline Phosphatase 39 L (46-116) U/L Total Protein 6.2 L (6.4-8.2) g/dl Albumin 2.7 L (3.4-5.0) g/dl Globulin 3.5 gm/dL Albumin/Globulin Ratio 0.8 L (1-2) Urine Color Light yellow (Yellow) Urine Appearance Clear (Clear) Urine pH 8.0 (5.0-8.0) Ur Specific [place] 1.020 (1.005-1.030) Urine Protein Negative (Negative) Urine Glucose (UA) Negative (Negative) Urine Ketones Negative (Negative) Urine Occult Blood Negative (Negative) Urine Nitrite Negative (Negative) Urine Bilirubin Negative (Negative) Urine Urobilinogen 0.2 (0.2-1.0) Ur Leukocyte Esterase Negative (Negative) Urine RBC 0-5 (0-5) /hpf Urine WBC 0-5 (0-5) /hpf Ur Squamous Epith Cells 0-5 (0-5) /hpf Urine Bacteria Few (FEW) /hpf Urine Mucus Few (FEW) /hpf Meds: Medications Generic Name Dose Route Start Last Admin Trade Name Aruna PRN Reason Stop Dose Admin Sodium Chloride 10 ml 10/18/19 11:32 10/18/19 12:26 Saline Flush FLUSH 10 ml ASDIRECTED PRN Administration Keep Vein Open Discontinued Medications Generic Name Dose Route Start Last Admin Trade Name Aruna PRN Reason Stop Dose Admin Acetaminophen 650 mg 10/18/19 11:57 10/18/19 12:25 Tylenol PO 10/18/19 11:58 650 mg NOW ONE Administration Hydromorphone HCl 0.25 mg 10/18/19 11:46 10/18/19 12:01 Dilaudid IVPUSH 10/18/19 11:47 Not Given ONETIME ONE Ondansetron HCl 4 mg 10/18/19 11:46 10/18/19 12:01 Zofran IVPUSH 10/18/19 11:47 Not Given ONETIME ONE - Re-Assessments/Exams Free Text/Narrative Re-Assessment/Exam: 10/18/19 11:53 Patient presents to the ER for her lower abdominal cramping. Have ordered IV to be placed, CBC, CMP, urinalysis, and limited abdomen ultrasound to evaluate for appendicitis in nature. Also suspect possible UTI. Patient will be given 0.25 mg of IV Dilaudid, 4 mg Zofran as well. 10/18/19 14:45 Labs are within normal limits, ultrasound has been obtained, and although the appendix is not visualized, I do not suspect she is suffering from appendicitis. Ultrasound did show a small hemorrhagic cyst within the right ovary measuring 1.8 cm in greatest dimension, which could be explaining the patient's pain. I did call her T[employer] 1 TUTOR, Dr. Fink, and she does request a limited OB ultrasound be obtained, as the patient is known to have a subchorionic hemorrhage, and was questioning whether it was enlarging or not. I did put this order in, the patient is willing to have this exam done today as well. 10/18/19 15:43 OB ultrasound is done, tech states that they actually did do a transvaginal ultrasound instead, but she did not note any sort of subchorionic hemorrhage at this exam. Once the official report is done, I will discuss findings with Dr. Fink again, and try to get the patient discharged with general recommendations. 10/18/19 16:18 Transvag US demonstrates no sign of a subchorionic hemorrhage, is intrauterine gestation with heart rate at about 156 bpm. There is no evidence of placenta previa noted as well. Amniotic fluid index is 12.5 cm. Gestational age is 19 weeks 5 days. Departure - Departure Time of Disposition: 16:20 Disposition: Home, Self-Care 01 Condition: Good Clinical Impression: Hemorrhagic cyst of right ovary, Abdominal pain complicating - Discharge Information *PRESCRIPTION DRUG MONITORING PROGRAM REVIEWED*: No *COPY OF PRESCRIPTION DRUG MONITORING REPORT IN PATIENT SVETLANA: No Instructions: Ovarian Cyst, [id number] Referrals: Johana Fink MD [Primary Care Provider] - Forms: ED Department Discharge, ED Return to Work/School Form Additional Instructions: You were evaluated in the ER today regarding your lower abdominal pain. Your fetus was noted to have a heart rate of 153 bpm, you did have 2 ultrasounds today; one to evaluate for your lower abdominal pain, and one to evaluate your . The abdominal ultrasound was not able to visualize the appendix, but did identify a hemorrhagic ovarian cyst on the right side, which could be the source of your pain. Your OB ultrasound demonstrated no abnormalities with the . Other laboratory evaluation demonstrated no sign of a urinary tract infection, no other focal bacterial infections. You are not thought to be suffering from appendicitis at this time. You may take 500 mg Tylenol every 6 hours as needed for further pain. Do not exceed 4000 mg Tylenol in a 24-hour time span. Your T[employer] 1 TUTOR, Dr. Fink has been made aware of your presence in the ER today, also she has been made known of your ultrasound results. Please follow-up with her at your next OB visit, unless otherwise directed by Dr. Fink herself. Please return to the ER at any time if your symptoms change or worsen. Sepsis Event Note (ED) - Evaluation Sepsis Screening Result: No Definite Risk - Focused Exam Vital Signs: Vital Signs Temp Pulse Resp BP Pulse Ox 10/18/19 11:24 97.8 F 94 16 103/68 99 - My Orders Last 24 Hours: My Active Orders 10/18/19 11:32 Sodium Chloride 0.9% [Saline Flush] 10 ml FLUSH ASDIRECTED PRN Peripheral IV Insertion Adult [OM.PC] Routine 10/18/19 11:33 Peripheral IV Care [RC] . DIRECTED 10/18/19 14:43 OB Ltd 1 or More Fetus [US] Stat - Assessment/Plan Last 24 Hours: My Active Orders 10/18/19 11:32 Sodium Chloride 0.9% [Saline Flush] 10 ml FLUSH ASDIRECTED PRN Peripheral IV Insertion Adult [OM.PC] Routine 10/18/19 11:33 Peripheral IV Care [RC] . DIRECTED 10/18/19 14:43 OB Ltd 1 or More Fetus [US] Stat
[2019-10-18] MEDS ORDERED: Acetaminophen 325 MG Tab PO ONE (11:57)
--- NOTE | 2019-10-18 14:33 | US ---
Limited abdominal ultrasound: Multiple real-time images of the right lower abdomen were obtained. Findings: Appendix not visualized within the right lower abdomen. Numerous varicosities are seen within the right adnexa. There is a small hemorrhagic cyst within the right ovary measuring 1.8 x 1.6 x 1.3 cm. Impression: 1. Prominent right adnexal varicosities. 2. Small hemorrhagic cyst within the right ovary measuring 1.8 cm in greatest dimension. 3. Nonvisualized appendix. Diagnostic code #3 This report was dictated in MDT
--- NOTE | 2019-10-20 10:22 | US ---
Follow-up obstetrical ultrasound: Multiple real-time images were obtained. Transvaginal images of the cervix were obtained. Comparison: Previous obstetrical ultrasound of 08/20/19. Dates: Current ultrasound: [facility] 03/08/20, gestational age 19 weeks 5 days Earliest ultrasound (08/20/19): [facility] 03/13/20, gestational age 19 weeks 0 days presentation: Cephalic Placenta: Posterior with no findings of placenta previa, no abruption is seen Amniotic fluid: NATHALIA 12.5 cm Measurements: BPD: 4.51 cm - 19 weeks 5 days Head circumference: 17.09 cm - 19 weeks 5 days Abdominal circumference: 14.25 cm - 19 weeks 5 days Femur length: 3.0 and centimeters - 19 weeks 3 days Estimated weight: 296 g (0 lbs. 10 oz.), Estimated weight at 33rd percentile Heart rate: 156 bpm Cervix: Hypoechoic material within the endocervical canal is seen most likely representing mucus. Internal cervical os is closed. Cervical length is 4.5 cm Impression: 1. Single intrauterine fetus currently cephalic in presentation. Dates as noted above. 2. Hypoechoic mucus believed to be present within the endocervical canal with internal cervical os being closed. Normal cervical length. 3. No placental abruption or other complicating process is seen. Diagnostic code #1 This report was dictated in MDT I agree with preliminary report from aki, finalized on , 5:12 PM Central Daylight Time
== END 2019-10-18 16:28 | disposition home or self-care (01) ==
LOC: JD.ED 11:14
DX: O34.82 Maternal care for other abnormalities of pelvic organs, second trimester (principal); N83.201 Unspecified ovarian cyst, right side; Z3A.19 19 weeks gestation of pregnancy
CPT/HCPCS: 36415; 76705; 76815; 80053; 81001; 85025; 99284; A9270

== ENCOUNTER 2019-10-22 21:06 | Emergency (ER) | payer MEDICAID ==
--- NOTE | 2019-10-23 00:24 | EDM.PDOC ---
ED HPI GENERAL MEDICAL PROBLEM - General Chief Complaint: Gastrointestinal Problem Stated Complaint: UNABLE TO HAVE BOWEL MOVEMENT Time Seen by Provider: 10/22/19 22:38 Source of Information: Reports: Patient, RN Notes Reviewed - History of Present Illness INITIAL COMMENTS - FREE TEXT/NARRATIVE: 24 yr old female with severe constipation. Has not had a BM for several days or more. Has taken stool softner and that has not helped. Feels rectal pressure, urgency. No other abd or pelvic pain. No fever, chills, nausea or vomiting. Has been eating and drinking OK. 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 Musculoskeletal History: Reports: None Neurological History: Reports: None Psychiatric History: Reports: Anxiety, Panic Attack Endocrine/Metabolic History: Reports: None Hematologic History: Reports: None Immunologic History: Reports: None Oncologic (Cancer) History: Reports: None Dermatologic History: Reports: None - Past Surgical History Head Surgeries/Procedures: Reports: None Female Surgical History: Reports: D&C Social & Family History - Tobacco Use Smoking Status *Q: Never Smoker - Caffeine Use Caffeine Use: Reports: None - Recreational Drug Use Recreational Drug Use: No - Living Situation & Occupation Living situation: Reports: , with Spouse, with Family (2 kids) Occupation: Unemployed ED ROS GENERAL - Review of Systems Review Of Systems: See Below Constitutional: Denies: Fever, Chills, Diaphoresis HEENT: Reports: No Symptoms Respiratory: Denies: Shortness of Breath, Cough Cardiovascular: Denies: Chest Pain GI/Abdominal: Reports: Constipation, Other (rectal pressure and urgency). Denies: Abdominal Pain, Diarrhea Musculoskeletal: Denies: Back Pain Skin: Reports: No Symptoms Neurological: Reports: No Symptoms ED EXAM, GI/ABD - Physical Exam Exam: See Below General Appearance: Alert, Mild Distress Head: Atraumatic Neck: Supple Respiratory/Chest: No Respiratory Distress Cardiovascular: Regular Rate, Rhythm GI/Abdominal Exam: Soft, Non-Tender. No: Guarding Extremities: Normal Inspection, Normal Range of Motion Neurological: Alert, Oriented, No Motor/Sensory Deficits Skin Exam: Warm, Dry, Normal Color Course - Vital Signs Last Recorded V/S: Last Vital Signs Temp 97.9 F 10/22/19 22:29 Pulse 110 H 10/22/19 22:29 Resp 19 10/22/19 22:29 BP 97/50 L 10/22/19 22:29 Pulse Ox 100 10/22/19 22:29 - Re-Assessments/Exams Free Text/Narrative Re-Assessment/Exam: 10/30/19 15:28 Pt was given soap suds enema with good results Departure - Departure Time of Disposition: 00:23 Disposition: Home, Self-Care 01 Condition: Fair Clinical Impression: Constipation - Discharge Information Instructions: Constipation, Adult, [id number] Referrals: Johana Fink MD [Primary Care Provider] - Forms: ED Department Discharge Additional Instructions: Drink plenty of water, continue stool softner twice daily, continue miralax, high fiber diet. Prunes or prune juice as needed. Sepsis Event Note (ED) - Evaluation Sepsis Screening Result: No Definite Risk
== END 2019-10-23 00:29 | disposition home or self-care (01) ==
LOC: JD.ED 21:06
DX: K59.00 Constipation, unspecified (principal)
CPT/HCPCS: 99283

== ENCOUNTER 2019-11-15 09:57 | Emergency (ER) | payer MEDICAID ==
--- NOTE | 2019-11-15 11:23 | EDM.PDOC ---
ED HPI GENERAL MEDICAL PROBLEM - General Chief Complaint: Gastrointestinal Problem Time Seen by Provider: 11/15/19 11:17 Source of Information: Reports: Patient, RN Notes Reviewed - History of Present Illness INITIAL COMMENTS - FREE TEXT/NARRATIVE: 24 yr old female about 23 weeks comes in with severe nausea, vomiting this morning. Sx started shortly after getting up for work. Has vomited many times. No diarrhea on no major or current abd pain or cramping. Not aware of eating any thing bad. No other family members ill at this time. She [facility] and that was good. Still nauseated, not actively vomiting at time of exam. 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 Musculoskeletal History: Reports: None Neurological History: Reports: None Psychiatric History: Reports: Anxiety, Panic Attack Endocrine/Metabolic History: Reports: None Hematologic History: Reports: None Immunologic History: Reports: None Oncologic (Cancer) History: Reports: None Dermatologic History: Reports: None - Past Surgical History Head Surgeries/Procedures: Reports: None Female Surgical History: Reports: D&C Social & Family History - Tobacco Use Smoking Status *Q: Never Smoker - Caffeine Use Caffeine Use: Reports: None - Living Situation & Occupation Living situation: Reports: , with Spouse, with Family (2 kids) Occupation: Unemployed ED ROS GENERAL - Review of Systems Review Of Systems: See Below Constitutional: Denies: Fever, Chills, Diaphoresis HEENT: Denies: Rhinitis, Throat Pain Respiratory: Denies: Shortness of Breath, Cough Cardiovascular: Denies: Chest Pain GI/Abdominal: Reports: Nausea, Vomiting. Denies: Abdominal Pain, Diarrhea Musculoskeletal: Reports: No Symptoms Skin: Reports: No Symptoms Neurological: Reports: Dizziness ED EXAM, GI/ABD - Physical Exam Exam: See Below General Appearance: Alert, No Apparent Distress Eyes: Bilateral: Normal Appearance Head: Atraumatic. No: Facial Swelling Neck: Supple Respiratory/Chest: No Respiratory Distress, Lungs Clear, Normal Breath Sounds Cardiovascular: Regular Rate, Rhythm GI/Abdominal Exam: Soft, Non-Tender, Other (appropriately distended) Back Exam: No: CVA Tenderness (L), CVA Tenderness (R) Extremities: No Pedal Edema Neurological: Alert, Oriented, No Motor/Sensory Deficits Skin Exam: Warm, Dry, Normal Color Course - Vital Signs Last Recorded V/S: Last Vital Signs Temp 97.0 F 11/15/19 10:57 Pulse 80 11/15/19 10:57 Resp 16 11/15/19 10:57 BP 94/56 L 11/15/19 10:57 Pulse Ox 98 11/15/19 10:57 - Orders/Labs/Meds Orders: Active Orders 24 hr Category Date Time Status Peripheral IV Care [RC] . DIRECTED Care 11/15/19 11:30 Active Sodium Chloride 0.9% [Normal Saline] 1,000 ml Med 11/15/19 11:30 Active IV ONETIME Sodium Chloride 0.9% [Saline Flush] Med 11/15/19 11:30 Active 10 ml FLUSH ASDIRECTED PRN Peripheral IV Insertion Adult [OM.PC] Stat Oth 11/15/19 11:30 Ordered Medication Orders Sodium Chloride (Normal Saline) 1,000 mls @ 999 mls/hr IV ONETIME [facility] Last Admin: 11/15/19 11:51 Dose: 999 mls/hr Documented by: MILTON Sodium Chloride (Saline Flush) 10 ml FLUSH ASDIRECTED PRN PRN Reason: Keep Vein Open Last Admin: 11/15/19 11:51 Dose: 10 ml Documented by: MILTON Labs: Laboratory Tests 11/15/19 Range/Units 11:43 Sodium 138 (136-145) mEq/L Potassium 3.4 L (3.5-5.1) mEq/L Chloride 104 (98-107) mEq/L Carbon Dioxide 26 (21-32) mEq/L Anion Gap 11.4 (5-15) BUN 6 L (7-18) mg/dL Creatinine 0.6 (0.55-1.02) mg/dL Est Cr Clr Drug Dosing 118.57 mL/min Estimated GFR (MDRD) > 60 (>60) mL/min BUN/Creatinine Ratio 10.0 L (14-18) Glucose 86 (74-106) mg/dL Calcium 8.9 (8.5-10.1) mg/dL Meds: Medications Generic Name Dose Route Start Last Admin Trade Name Freq PRN Reason Stop Dose Admin Sodium Chloride 1,000 mls @ 999 mls/hr 11/15/19 11:30 11/15/19 11:51 Normal Saline IV 999 mls/hr ONETIME RANI Administration Sodium Chloride 10 ml 11/15/19 11:30 11/15/19 11:51 Saline Flush FLUSH 10 ml ASDIRECTED PRN Administration Keep Vein Open Discontinued Medications Generic Name Dose Route Start Last Admin Trade Name Freq PRN Reason Stop Dose Admin Ondansetron HCl 4 mg 11/15/19 11:30 11/15/19 11:51 Zofran IVPUSH 11/15/19 11:31 4 mg ONETIME ONE Administration - Re-Assessments/Exams Free Text/Narrative Re-Assessment/Exam: 11/15/19 12:59 Feeling much better, labs look good. Have given 1 liter NS and Zofran 4 mg IV. Departure - Departure Time of Disposition: 13:00 Disposition: Home, Self-Care 01 Condition: Fair Clinical Impression: Vomiting, Second trimester - Discharge Information Referrals: Johana Fink MD [Primary Care Provider] - Forms: ED Department Discharge, ED Return to Work/School Form Additional Instructions: clear liquids until this evening, than careful bland diet as tolerated. Follow up with Dr Fink as needed. Return to ED as needed if symptoms worsening in any way. Sepsis Event Note (ED) - Evaluation Sepsis Screening Result: No Definite Risk - Focused Exam Vital Signs: Vital Signs Temp Pulse Resp BP Pulse Ox 11/15/19 10:57 97.0 F 80 16 94/56 L 98 - My Orders Last 24 Hours: My Active Orders 11/15/19 11:30 Peripheral IV Care [RC] . DIRECTED Sodium Chloride 0.9% [Normal Saline] 1,000 ml IV ONETIME Sodium Chloride 0.9% [Saline Flush] 10 ml FLUSH ASDIRECTED PRN Peripheral IV Insertion Adult [OM.PC] Stat - Assessment/Plan Last 24 Hours: My Active Orders 11/15/19 11:30 Peripheral IV Care [RC] . DIRECTED Sodium Chloride 0.9% [Normal Saline] 1,000 ml IV ONETIME Sodium Chloride 0.9% [Saline Flush] 10 ml FLUSH ASDIRECTED PRN Peripheral IV Insertion Adult [OM.PC] Stat
[2019-11-15] MEDS ORDERED: Sodium Chloride 0.9% 10 ML Syringe FLUSH PRN (11:30)
[2019-11-15] MEDS ORDERED: Sodium Chloride 0.9% 1,000 ML IV SCH (11:30)
[2019-11-15] MEDS ORDERED: Ondansetron 4 MG/2 ML SDV IVPUSH ONE (11:30)
== END 2019-11-15 13:13 | disposition home or self-care (01) ==
LOC: JD.OB 09:57 → JD.ED 09:57 → JD.OBCHECK 09:57 → JD.OB 09:57 → EDSTATUS 10:51 → JD.ED 10:57 → JD.OB 13:13
DX: O21.2 Late vomiting of pregnancy (principal); Z3A.23 23 weeks gestation of pregnancy
CPT/HCPCS: 36415; 80048; 96361; 96374; 99284; J2405; J7030; 99283

== ENCOUNTER 2020-03-04 07:59 | Inpatient (IN) | payer MEDICAID ==
[2020-03-04] MEDS ORDERED: Ondansetron 4 MG/2 ML SDV IVPUSH PRN ×2 (08:16→11:19)
[2020-03-04] MEDS ORDERED: Lidocaine 1% 50 ML MDV INJECT ONE (08:16)
[2020-03-04] MEDS ORDERED: Sodium Chloride 0.9% 10 ML Syringe FLUSH PRN (08:16)
[2020-03-04] MEDS ORDERED: Nalbuphine 10 MG/1 ML Vial IVPUSH PRN (08:16)
[2020-03-04] MEDS ORDERED: Oxytocin/Lactated Ringers 10 UNIT/1,000 ML BAG IV SCH ×2 (08:30→14:17)
[2020-03-04] MEDS ORDERED: Lactated Ringers 1,000 ML IV SCH ×2 (08:30→10:15)
[2020-03-04] MEDS ORDERED: ceFAZolin 2 GM in Premix Bag 1 BAG IV ONE (10:09)
[2020-03-04] MEDS ORDERED: Metoclopramide 10 MG/2 ML SDV IVPUSH ONE (10:09)
[2020-03-04] MEDS ORDERED: Citric Acid/Sodium Citrate Solution 30 ML Cup PO ONE (10:09)
[2020-03-04] MEDS ORDERED: Azithromycin 500 MG in Sodium Chloride 0.9% 250 ML IV ONE (10:11)
--- NOTE | 2020-03-04 10:11 | PCM.LDHP ---
L&D History of Present Illness - General Date of Service: 03/04/20 Admit Problem/Dx: Patient Status Order with Admit Dx/Problem 03/04/20 08:16 Patient Status [ADT] Routine Admission Diagnosis/Problem Admission Diagnosis/Problem Source of Information: Patient History Limitations: Reports: No Limitations - History of Present Illness Introduction:: Tanna Kaur is a 24-year-old -0-1-2 at 38 weeks 5 days and sees [facility] 03/13/2020) by a 10-week ultrasound who presents in advanced labor. She reports that she started having contractions around 2 AM that were about 5 minutes apart. She denies any leaking of fluid or vaginal bleeding. She reports good movement. Timing/Duration: Reports: constant/continuous (Contractions every 5 minutes) Quality: Reports: Pressure, Throbbing Severity: Moderate Improves with: Reports: None Worsens with: Reports: None Associated Symptoms: Denies: vaginal bleeding, vaginal discharge, vaginal fluid Present Illness Comments:: Tanna Kaur is a 24-year-old -0-1-2 female at 38 weeks 5 days ([facility] 03/13/2020) by a 10-week ultrasound who presented in advanced labor with cervical dilation of 10 cm and a bulging bag of water.She has had a routine care throughout the course of her starting at [address] Fink and transitioning to care with myself, Dr. Finley, at 29 weeks gestational age after she was diagnosed with gestational diabetes. She was started on insulin at 32 weeks gestational age after she had poor control of her gestational diabetes. Her has otherwise been uncomplicated except for large for gestational age baby with most recent ultrasound measuring in the 89th percentile on 02/26/2020. She declined Tdap and flu vaccine in . This is complicated by: * Gestational diabetes -patient was started on insulin 10 units nightly at 32 weeks gestational age and had good control of her blood sugars after she was started on the insulin. We did attempt to increase to 12 units for 1 week but she started to have hypoglycemic episodes. She was decreased back down to 10 units at that time. 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 G1: SAB G2: 7 06/08/2014, 39 weeks, , female infant, 7 pounds 11 ounces, epidural, no complications during , depression after delivery G3: 10/30/2016, 39 weeks, , male infant, 8 pounds, epidural, heart rate would drop during labor but normal delivery G4: Current labs Blood type: A+ Antibody screen: Negative First trimester hematocrit/hemoglobin: 40.4%/13.7 on 08/20/2019 Platelets: 270 on 08/20/2019 Urine culture: Mixed jose suggestive of contamination Rubella status: Immune Varicella: Immune Hepatitis B surface antigen: Negative RPR: Negative HIV: Negative Gonorrhea: Negative Chlamydia: Negative Genetic testing: Decreased risk for trisomies by testing Anatomy ultrasound: Normal anatomy, posterior placenta, 89th percentile on most recent ultrasound on 02/26/2020 One hour glucose tolerance test: 167 Second trimester hematocrit/hemoglobin: 35.9%/11.7 on 12/17/2019 Platelets: 249 on 12/17/2019 3-hour glucose tolerance test: 93 fasting, 188 1 hour, 157 2-hour, 81 3-hour Third trimester hematocrit/hemoglobin: 39.2%/12.7 on 02/12/2020 Platelets: 190 on 02/12/2020 GBS status: Negative - Related Data Allergies/Adverse Reactions: Allergies Allergy/AdvReac Type Severity Reaction Status Date / Time No Known Allergies Allergy Verified 01/24/20 17:48 Home Medications: Home Meds Pnv No.95/Ferrous Fum/Folic AC [ Caplet] 1 each PO DAILY 10/18/19 [History] Insulin Glarg,Human.Rec.Analog [Lantus] 10 unit SUBCUT BEDTIME #0 02/17/20 [Rx] hydrOXYzine HCL [Atarax] 25 - 50 mg PO Q6H PRN #30 tab 02/17/20 [Rx] Past Medical History - Past Health History Medical/Surgical History: Denies Medical/Surgical History HEENT History: Reports: Impaired Vision Cardiovascular History: Reports: None Respiratory History: Reports: None Gastrointestinal History: Reports: None 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 Musculoskeletal History: Reports: None Neurological History: Reports: None Psychiatric History: Reports: Anxiety, Panic Attack Endocrine/Metabolic History: Reports: None Hematologic History: Reports: None Immunologic History: Reports: None Oncologic (Cancer) History: Reports: None Dermatologic History: Reports: None - Past Surgical History Head Surgeries/Procedures: Reports: None Female Surgical History: Reports: D&C Social & Family History - Tobacco Use Tobacco Use Status *Q: Never Tobacco User Tobacco Use Within Last Twelve Months: No - Tobacco Core Measures Tobacco Use/Smoking Within Last 30 Days: No Smokeless Tobacco Use in Last 30 Days: No - Caffeine Use Caffeine Use: Reports: None - Alcohol Use Alcohol Use History: No - Recreational Drug Use Recreational Drug Use: No Drug Use in Last 12 Months: No - Living Situation & Occupation Living situation: Reports: , with Spouse, with Family (2 kids) Occupation: Unemployed H&P Review of Systems - Review of Systems: Review Of Systems: See Below General: Denies: Fever, Chills, Malaise, Weakness, Fatigue HEENT: Denies: Rhinitis, Post Nasal Drip, Sinus Congestion, Sore Throat, Visual Changes Pulmonary: Denies: Shortness of Breath, Wheezing, Pleuritic Chest Pain, Cough Cardiovascular: Denies: Chest Pain, Palpitations, Dyspnea on Exertion, Orthopnea Gastrointestinal: Denies: Abdominal Pain, Constipation, Diarrhea, Nausea, Vomiting Genitourinary: Denies: Dysuria, Frequency, Burning, Pain, Urgency Musculoskeletal: Denies: Back Pain Skin: Denies: Rash, Lesions Psychiatric: Reports: Anxiety. Denies: Depression Neurological: Denies: Dizziness, Headache L&D Exam - Exam Exam: See Below - OB Specific Contraction Duration (sec): 60-75 Contraction Frequency (min): 2-3 Contraction Intensity: Strong Movement: Active Heart Tones: Present Heart Tones per Min: 140 (+15 x 15 accelerations, variable decelerations with pushing) Heart Rate (FHR) Variability: Moderate (6-25 bmp) Presentation: Vertex Estimated Weight: 9.5-10 lbs by recent ultrasound - Warren Score Warren Score Cervix Position: Anterior Warren Score Consistency: Soft Warren Score Effacement: >80% (100%) Warren Score Dilation: > 5 cm (10 cm) Warren Score Infant's Station: -1 ,0 Warren Score Total: 12 - Exam General: Alert, Oriented HEENT: Conjunctiva Clear, EOMI Neck: Supple, Trachea Midline Lungs: Clear to Auscultation, Normal Respiratory Effort Cardiovascular: Regular Rate, Regular Rhythm GI/Abdominal Exam: Soft, No Distention, Other (Gravid). No: Guarding, Rigid, Rebound Genitourinary: Normal external exam Skin: Warm, Dry, Intact Psychiatric: Alert, Normal Affect, Normal Mood - Patient Data Lab Results Last 24 hrs: Laboratory Results - last 24 hr 03/04/20 03/04/20 03/04/20 Range/Units 08:30 08:31 09:11 WBC 10.12 H (3.98-10.04) K/mm3 RBC 3.88 L (3.98-5.22) M/mm3 Hgb 12.8 (11.2-15.7) gm/dl Hct 37.6 (34.1-44.9) % MCV 96.9 H (79.4-94.8) fl MCH 33.0 H (25.6-32.2) pg MCHC 34.0 (32.2-35.5) g/dl RDW Std Deviation 46.1 (36.4-46.3) fL Plt Count 158 L D (182-369) K/mm3 MPV 10.2 (9.4-12.3) fl Neut % (Auto) 70.6 (34.0-71.1) % Lymph % (Auto) 20.5 (19.3-51.7) % [place] % (Auto) 8.4 (4.7-12.5) % Eos % (Auto) 0.4 L (0.7-5.8) Baso % (Auto) 0.1 (0.1-1.2) % Neut # (Auto) 7.15 H (1.56-6.13) K/mm3 Lymph # (Auto) 2.07 (1.18-3.74) K/mm3 [place] # (Auto) 0.85 H (0.24-0.36) K/mm3 Eos # (Auto) 0.04 (0.04-0.36) K/mm3 Baso # (Auto) 0.01 (0.01-0.08) K/mm3 Manual Slide Review Normal smear POC Glucose 94 (70-105) mg/dL SARS-CoV-2 RNA (MIKE) Positive H (NEGATIVE) Result Diagrams: 03/04/20 09:11 - Problem List (1) 38 weeks gestation of SNOMED Code(s): 37430777 ICD Code: Z3A.38 - 38 WEEKS GESTATION OF Status: Acute Current Visit: Yes (2) COVID-19 affecting in third trimester SNOMED Code(s): 362647002, 187152827 ICD Code: O98.513 - OTHER VIRAL DISEASES COMPLICATING , THIRD T RIMESTER; U07.1 - COVID-19 Status: Acute Current Visit: Yes (3) White classification A2 gestational diabetes mellitus (GDM), insulin controlled SNOMED Code(s): 74694078 ICD Code: O24.414 - GESTATIONAL DIABETES IN , INSULIN CONTROLLED Status: Acute Current Visit: Yes Problem List Initiated/Reviewed/Updated: Yes Orders Last 24hrs: Active Orders 24 hr Category Date Time Status Patient Status [ADT] Routine ADT 03/04/20 08:16 Active Activity as Tolerated [RC] PFP Care 03/04/20 08:16 Active Communication Order [RC] ASDIRECTED Care 03/04/20 08:16 Active Heart Tones [RC] ASDIRECTED Care 03/04/20 08:17 Active Non Stress Test [RC] PER UNIT ROUTINE Care 03/04/20 08:16 Active Notify Provider [RC] PFP Care 03/04/20 08:16 Active Notify Provider [RC] PRN Care 03/04/20 08:16 Active Peripheral IV Care [RC] . DIRECTED Care 03/04/20 08:17 Active Vital Signs [RC] PER UNIT ROUTINE Care 03/04/20 08:16 Active Regular Diet [DIET] Diet 03/04/20 Lunch Active RAPID PLASMA REAGIN,RPR [CHEM] Routine Lab 03/04/20 09:11 Received RPR (SYPHILIS SERO) W/ RFLX [REF] Stat Lab 03/04/20 08:33 Ordered TYPE AND SCREEN [BBK] Stat Lab 03/04/20 09:11 Received Lactated Ringers [Ringers, Lactated] 1,000 ml Med 03/04/20 08:30 Active IV ASDIRECTED Nalbuphine [Nubain] Med 03/04/20 08:16 Active 10 mg IVPUSH Q2H PRN Ondansetron [Zofran] Med 03/04/20 08:16 Active 4 mg IVPUSH Q4H PRN Oxytocin/Lactated Ringers [Pitocin in LR 10 Units/1,000 Med 03/04/20 08:30 Active ML] 10 unit in 1,000 ml IV .CONTINUOUS Sodium Chloride 0.9% [Saline Flush] Med 03/04/20 08:16 Active 10 ml FLUSH ASDIRECTED PRN Electronic Heart Tones Ext w TOCO [WOMSER] Oth 03/04/20 08:16 Ordered Routine Electronic Heart Tones Internal [WOMSER] Per Unit Ot 03/04/20 08:16 O rdered Routine Peripheral IV Insertion Adult [OM.PC] Routine Oth 03/04/20 08:16 Ordered Resuscitation Status Routine Resus Stat 03/04/20 08:16 Ordered Medication Orders Oxytocin/Lactated Ringer's (Pitocin In Lr 10 Units/1,000 Ml) 10 unit in 1,000 mls @ 500 mls/hr IV .CONTINUOUS RANI Lactated Ringer's (Ringers, Lactated) 1,000 mls @ 100 mls/hr IV ASDIRECTED RANI Nalbuphine HCl (Nubain) 10 mg IVPUSH Q2H PRN PRN Reason: Pain Ondansetron HCl (Zofran) 4 mg IVPUSH Q4H PRN PRN Reason: Nausea/Vomiting Sodium Chloride (Saline Flush) 10 ml FLUSH ASDIRECTED PRN PRN Reason: Keep Vein Open Assessment/Plan Comment:: Tanna Kaur is a 24-year-old -0-1-2 at 38 weeks 5 days ([facility] of 03/13/2020) by a 10-week ultrasound who presented in advanced labor and had been pushing for approximately 1 hour and 45 minutes with no progression or descent. She was complete on arrival and did not have any additional descent of the baby. On admission she underwent artificial rupture membranes with clear fluid and mother and baby tolerated procedure without difficulty. She then began to push and was pushing for approximately 1 hour and 45 minutes with no progression or descent of the baby. We had a discussion with the patient regarding options at this time including continued pushing for an additional 15 to 30 minutes to ensure that she was given a full opportunity to try to deliver the baby, attempted use of vacuum extraction delivery versus section. Patient desired to proceed with section at this time. * Admit to inpatient after section * SCDs for DVT prophylaxis * Nothing by mouth * Activity as tolerated * Plan for spinal injection for anesthesia * Plans to breast-feed after delivery * Plan for Ancef 2 g IV and azithromycin 500 mg IV for antibiotic prophylaxis prior to surgery Jose Finley M.D. 10:16 AM 03/04/2020
[2020-03-04] MEDS ORDERED: Azithromycin 500 MG AdvVial ONE (10:19)
[2020-03-04] MEDS ORDERED: Bupivacaine 0.5% 30 ML SDV ONE (10:34)
--- NOTE | 2020-03-04 10:37 | PCM.PREANE ---
Preanesthetic Assessment - Procedure Proposed Procedure: csecrtion--covid positive - Anesthesia/Transfusion/Family Hx Anesthesia History: Prior Anesthesia Without Reaction Family History of Anesthesia Reaction: No Transfusion History: No Prior Transfusion(s) - Review of Systems General: No Symptoms Pulmonary: No Symptoms Cardiovascular: No Symptoms Gastrointestinal: No Symptoms Neurological: No Symptoms Other: Reports: Diabetes (gestational - takes insulin), Anxiety - Physical Assessment NPO Status Date: 03/04/20 NPO Status Time: 02:00 Vital Signs: 91/73 98 20 98.3 Height: 5 ft 3 in Weight: 88.451 kg ASA Class: 2E Mental Status: Alert & Oriented x3 Airway Class: Mallampati = 2 Dentition: Reports: Normal Dentition Thyro-Mental Finger Breadths: 3 Mouth Opening Finger Breadths: 3 ROM/Head Extension: Full Lungs: Clear to Auscultation, Normal Respiratory Effort Cardiovascular: Regular Rate, Regular Rhythm - Lab Values: Laboratory Last Values WBC 10.12 K/mm3 (3.98-10.04) H 03/04/20 09:11 RBC 3.88 M/mm3 (3.98-5.22) L 03/04/20 09:11 Hgb 12.8 gm/dl (11.2-15.7) 03/04/20 09:11 Hct 37.6 % (34.1-44.9) 03/04/20 09:11 MCV 96.9 fl (79.4-94.8) H 03/04/20 09:11 MCH 33.0 pg (25.6-32.2) H 03/04/20 09:11 MCHC 34.0 g/dl (32.2-35.5) 03/04/20 09:11 RDW Std Deviation 46.1 fL (36.4-46.3) 03/04/20 09:11 Plt Count 158 K/mm3 (182-369) L D 03/04/20 09:11 MPV 10.2 fl (9.4-12.3) 03/04/20 09:11 Neut % (Auto) 70.6 % (34.0-71.1) 03/04/20 09:11 Lymph % (Auto) 20.5 % (19.3-51.7) 03/04/20 09:11 Preble % (Auto) 8.4 % (4.7-12.5) 03/04/20 09:11 Eos % (Auto) 0.4 (0.7-5.8) L 03/04/20 09:11 Baso % (Auto) 0.1 % (0.1-1.2) 03/04/20 09:11 Neut # (Auto) 7.15 K/mm3 (1.56-6.13) H 03/04/20 09:11 Lymph # (Auto) 2.07 K/mm3 (1.18-3.74) 03/04/20 09:11 Preble # (Auto) 0.85 K/mm3 (0.24-0.36) H 03/04/20 09:11 Eos # (Auto) 0.04 K/mm3 (0.04-0.36) 03/04/20 09:11 Baso # (Auto) 0.01 K/mm3 (0.01-0.08) 03/04/20 09:11 Manual Slide Review Normal smear 03/04/20 09:11 POC Glucose 94 mg/dL (70-105) 03/04/20 08:31 SARS-CoV-2 RNA (MIKE) Positive (NEGATIVE) H 03/04/20 08:30 Blood Type A POSITIVE 03/04/20 09:11 - Allergies Allergies/Adverse Reactions: Allergies Allergy/AdvReac Type Severity Reaction Status Date / Time No Known Allergies Allergy Verified 01/24/20 17:48 - Blood Blood Available: No - Acknowledgements Anesthesia Type Planned: Spinal Pt an Appropriate Candidate for the Planned Anesthesia: Yes Alternatives and Risks of Anesthesia Discussed w Pt/Guardian: Yes Pt/Guardian Understands and Agrees with Anesthesia Plan: Yes PreAnesthesia Questionnaire - Past Health History Medical/Surgical History: Denies Medical/Surgical History HEENT History: Reports: Impaired Vision Cardiovascular History: Reports: None Respiratory History: Reports: None Gastrointestinal History: Reports: GERD HOME HEALTH LPN History: Reports: Therapeutic : 3 Musculoskeletal History: Reports: None Neurological History: Reports: None Psychiatric History: Reports: Anxiety, Panic Attack Endocrine/Metabolic History: Reports: None Hematologic History: Reports: None Immunologic History: Reports: None Oncologic (Cancer) History: Reports: None Dermatologic History: Reports: None - Past Surgical History Head Surgeries/Procedures: Reports: None Female Surgical History: Reports: D&C - SUBSTANCE USE Tobacco Use Status *Q: Never Tobacco User Tobacco Use Within Last Twelve Months: No Second Hand Smoke Exposure: No Days Per Week of Alcohol Use: 0 Recreational Drug Use History: No - HOME MEDS Home Medications: Home Meds Pnv No.95/Ferrous Fum/Folic AC [ Caplet] 1 each PO DAILY 10/18/19 [History] Insulin Glarg,Human.Rec.Analog [Lantus] 10 unit SUBCUT BEDTIME #0 02/17/20 [Rx] hydrOXYzine HCL [Atarax] 25 - 50 mg PO Q6H PRN #30 tab 02/17/20 [Rx] - CURRENT (IN HOUSE) MEDS Current Meds: Current Medications Oxytocin/Lactated Ringer's (Pitocin In Lr 10 Units/1,000 Ml) 10 unit in 1,000 mls @ 500 mls/hr IV .CONTINUOUS RANI Lactated Ringer's (Ringers, Lactated) 1,000 mls @ 100 mls/hr IV ASDIRECTED RANI Last Admin: 03/04/20 10:09 Dose: 999 mls/hr Documented by: Lactated Ringer's (Ringers, Lactated) 1,000 mls @ 125 mls/hr IV ASDIRECTED RANI Cefazolin Sodium/Dextrose 2 gm (/ Premix) 50 mls @ 100 mls/hr IV ONETIME ONE Stop: 03/04/20 10:38 Azithromycin 500 mg/ Sodium (Chloride) 250 mls @ 250 mls/hr IV ONETIME ONE Stop: 03/04/20 11:10 Nalbuphine HCl (Nubain) 10 mg IVPUSH Q2H PRN PRN Reason: Pain Ondansetron HCl (Zofran) 4 mg IVPUSH Q4H PRN PRN Reason: Nausea/Vomiting Sodium Chloride (Saline Flush) 10 ml FLUSH ASDIRECTED PRN PRN Reason: Keep Vein Open Discontinued Medications Azithromycin (Zithromax) Confirm Administered Dose 500 mg .ROUTE .STK-MED ONE Stop: 03/04/20 10:20 Citric Acid/Sodium Citrate (Bicitra Solution) 30 ml PO ONETIME ONE Stop: 03/04/20 10:10 Last Admin: 03/04/20 10:24 Dose: 30 ml Documented by: Lidocaine HCl (Xylocaine 1%) 50 ml INJECT ONETIME ONE Stop: 03/04/20 08:17 Metoclopramide HCl (Reglan) 10 mg IVPUSH ONETIME ONE Stop: 03/04/20 10:10 Last Admin: 03/04/20 10:24 Dose: 10 mg Documented by:
[2020-03-04] MEDS ORDERED: Oxytocin 10 Units/1 ML SDV ONE ×2 (10:41→10:43)
[2020-03-04] MEDS ORDERED: Ondansetron 4 MG/2 ML SDV ONE (10:41)
[2020-03-04] MEDS ORDERED: Ketorolac 30 MG/ML SDV ONE (10:41)
[2020-03-04] MEDS ORDERED: Lactated Ringers 2,000 ML ONE (10:41)
[2020-03-04] MEDS ORDERED: ceFAZolin 1 GM Vial ONE (10:41)
[2020-03-04] MEDS ORDERED: Morphine PF 10 MG/10 ML SDV ONE (10:43)
[2020-03-04] MEDS ORDERED: Meperidine 50 MG/ML Vial ONE (11:09)
[2020-03-04] MEDS ORDERED: diphenhydrAMINE 50 MG/ML SDV IVPUSH PRN ×2 (11:19→14:17)
[2020-03-04] MEDS ORDERED: Meperidine 50 MG/ML Vial IVPUSH PRN (11:19)
[2020-03-04] MEDS ORDERED: fentaNYL 100 MCG/2 ML SDV IVPUSH PRN (11:19)
[2020-03-04] MEDS ORDERED: ePHEDrine 50 MG/ML SDV ONE (11:22)
--- NOTE | 2020-03-04 11:56 | PCM.POSTAN ---
POST ANESTHESIA ASSESSMENT - MENTAL STATUS Mental Status: Alert, Oriented - VITAL SIGNS Vital Signs: Last Vital Signs Temp 97.5 F 03/04/20 11:45 Pulse 94 03/04/20 11:45 Resp 20 03/04/20 11:45 BP 108/61 03/04/20 11:45 Pulse Ox 100 03/04/20 11:45 - RESPIRATORY Respiratory Status: Respiratory Rate WNL, Airway Patent, O2 Saturation Stable, Supplemental Oxygen - CARDIOVASCULAR CV Status: Pulse Rate WNL, Blood Pressure Stable - GASTROINTESTINAL GI Status: No Symptoms - PAIN Pain Score: 0 (still has the shakes a little) - POST OP HYDRATION Hydration Status: Adequate & Stable
[2020-03-04] MEDS ORDERED: Acetaminophen/oxyCODONE 325-5 MG Tab PO PRN (14:17)
[2020-03-04] MEDS ORDERED: Dextrose 5%-Lactated Ringers 1,000 ML IV SCH (14:17)
[2020-03-04] MEDS ORDERED: ePHEDrine 50 MG/ML SDV IVPUSH PRN (14:17)
[2020-03-04] MEDS ORDERED: Naloxone 0.4 MG/ML SDV IVPUSH PRN (14:17)
[2020-03-04] MEDS ORDERED: Magnesium Hydroxide 400 MG/5 ML Susp 30 ML Cup PO PRN (14:17)
--- NOTE | 2020-03-04 16:06 | PCM.OPNOTE ---
- General Post-Op/Procedure Note Date of Surgery/Procedure: 03/04/20 Operative Procedure(s): Primary section Findings: Live male infant delivered in vertex presentation at 11:08 AM. Apgars 8 and 9. weight 4150 g (9 pounds 2.4 ounces). Grossly normal-appearing uterus and bilateral fallopian tubes and ovaries. Normal-appearing visualized portions of the intestines. Pre Op Diagnosis: 38 weeks gestational age, arrest of descent at +1 station, gestational diabetes, COVID-19 Post-Op Diagnosis: Same Anesthesia Technique: Spinal Primary Surgeon: Jose Finley Anesthesia Provider: Be Nicole Phys Assistant: Bacilio Palumbo Reason Phys Assistant Was Necessary: Patient safety and reduction of morbidity and mortality Role of Phys Assistant: Retraction for visualization Pathology: None Fluid Replacement, Intraop: 1,100 Output, Urine Amount: 275 EBL in mLs: 1,000 Complications: None Condition: Good Free Text/Narrative:: Intake & Output 03/04/20 03/04/20 03/04/20 06:59 14:59 22:59 Intake Total 2400 200 Output Total 545 100 Balance 1855 100 Procedure in Detail: The patient was in L&D room #3 and had been pushing for approximately 1 hour and 45 minutes with minimal descent of the head. Patient had been counseled on available options to assist with attempted normal delivery including continued pushing with changing of positions or use of a vacuum extractor to assist with delivery. Patient declined these options. She was counseled on possible section and she stated that she would like to proceed with section. The risks, benefits and complications were discussed with the patient. The patient desired to proceed with section and appropriate consents were signed. The patient was taken to operating room #2. A Time Out was held and the patient was identified using 2 identifiers and the procedure was confirmed. The patient was given spinal anesthesia and was placed in dorsal supine position with leftward tilt. She was given 2 g Ancef IV and azithromycin 500 mg IV for antibiotic prophylaxis. A Melo catheter was inserted without difficulty. The patient was prepped and draped in the usual sterile manner. The abdominal skin was tested and the spinal anesthesia was found to be adequate. The skin was injected with 0.5% marcaine for local anesthesia. A Pfannenstiel skin incision was made and carried down through the subcutaneous tissue to the fascia with the scapel. The fascia was nicked in the midline using a scalpel and the fascial incision was extended transversely with Doran scissors. The inferior aspect of the fascia was grasped with Marylin clamps and tented upwards. The fascia was from the underlying rectus muscle bluntly and sharply with Doran scissors. Attention was then turned to the superior aspect of the fascia and was grasped using Marylin clamps and tented upwards. The underlying rectus muscle was dissected off bluntly and sharply with Doran scissors. The peritoneum was identified and entered bluntly. The bladder blade was inserted and the lower uterine segment was identified. A low transverse uterine incision was made sharply with a scalpel and extended laterally bluntly. The 's head was brought to the uterine incision, the bladder blade was removed and the infant was delivered atraumatically. On 03/04/2020 a live male was delivered in vertex position at 11:08, wt of 4150 grams, 9 pounds and 2.4 ounces. APGARS were 8 & 9. The nose and mouth were suctioned with bulb suction, the cord was doubly clamped and cut and infant was transferred to the awaiting imaging clerk. The placenta was removed intact and appeared normal with a three vessel cord. The uterus was exteriorized and the uterine cavity was cleaned using lap sponges. The hysterotomy was closed with a running locked suture of 0-Vicryl. There was notation of a separation of the hysterotomy near the midline where the suture likely tore through the uterine wall. This was repaired with a [id number] suture with 0 Vicryl. A second suture of 0-Vicryl was used to imbricate the hysterotomy. The hysterotomy was noted to have a small amount of bleeding near the left end of the hysterotomy and this was made hemostatic with a [id number] suture with 0 Vicryl. The hysterotomy was hemostatic at this time. The uterus, tubes and ovaries appeared overall normal. The uterus was then returned into the abdominal cavity. The hysterotomy was noted to have small areas of bleeding that were cauterized and afterward the incision remained hemostatic inside the abdominal cavity. The fascia was noted to be hemostatic and the fascia was then reapproximated with running sutures of 1 PDS. The skin was reapproximated using 4-0 Monocryl and Steri-strips were applied over the incision. Instrument, sponge, and needle counts were correct prior to the abdominal closure and at the conclusion of the case. Jose Finley MD 4:03 PM 03/04/2020
[2020-03-04] MEDS: Ketorolac 30 MG/ML SDV IVPUSH SCH ×2 (17:24→23:28)
[2020-03-04] MEDS: Docusate Sodium 100 MG Cap PO SCH (23:29)
[2020-03-05] MEDS: Acetaminophen/oxyCODONE 325-5 MG Tab PO PRN ×3 (04:38→20:32)
[2020-03-05] MEDS: Ketorolac 30 MG/ML SDV IVPUSH SCH (05:26)
--- NOTE | 2020-03-05 07:21 | PCM48HPAN ---
Post Anesthesia Note - EVALUATION WITHIN 48HRS OF ANESTHETIC Vital Signs in Normal Range: Yes Patient Participated in Evaluation: No (per RN) Respiratory Function Stable: Yes Airway Patent: Yes Cardiovascular Function Stable: Yes Hydration Status Stable: Yes Pain Control Satisfactory: Yes Nausea and Vomiting Control Satisfactory: Yes Mental Status Recovered: Yes Vital Signs: Last Vital Signs Temp 36.9 C 03/05/20 05:25 Pulse 74 03/05/20 05:25 Resp 15 03/05/20 04:33 BP 113/71 03/05/20 04:33 Pulse Ox 97 03/05/20 05:25
[2020-03-05] MEDS ORDERED: Acetaminophen 325 MG Tab PO PRN (08:46)
[2020-03-05] MEDS: Docusate Sodium 100 MG Cap PO SCH ×2 (09:00→20:33)
[2020-03-05] MEDS: Prenatal Multivitamin with Calcium/Folic Acid/Iron Tab PO SCH (09:00)
--- NOTE | 2020-03-05 09:47 | PCM.SN.2 ---
- Free Text/Narrative Note: Post Operative Progress Note POD #1 Subjective: Doing well overall. Ambulating without difficulty. Lochia minimal. Melo catheter removed this morning and has not voided since removal. Passing flatus. Tolerating regular diet without nausea or vomiting. Pain controlled with oral medications. Bottlefeeding with minimal difficulty. Objective: Vitals: Vital Signs - 24 hr 03/04/20 03/04/20 03/04/20 11:45 12:00 12:04 Temperature Temperature [ 36.4 C Temporal] Pulse, Peripheral Pulse, 94 Peripheral [ Apical] Respiratory 20 20 Rate Blood Pressure Blood Pressure 108/61 118/56 L [Left Upper Arm ] O2 Sat by Pulse 100 100 Oximetry O2 Sat by Pulse 99 Oximetry [ Nasal Cannula] O2 Sat by Pulse Oximetry [Room Air] 03/04/20 03/04/20 03/04/20 12:10 12:20 12:30 Temperature Temperature [ Temporal] Pulse, Peripheral Pulse, 114 H Peripheral [ Apical] Respiratory 15 23 H 16 Rate Blood Pressure Blood Pressure 117/59 L 114/59 L 115/57 L [Left Upper Arm ] O2 Sat by Pulse 100 100 100 Oximetry O2 Sat by Pulse Oximetry [ Nasal Cannula] O2 Sat by Pulse 99 Oximetry [Room Air] 03/04/20 03/04/20 03/04/20 13:00 13:15 13:26 Temperature Temperature [ 36.9 C 36.8 C 36.8 C Temporal] Pulse, Peripheral Pulse, 84 77 Peripheral [ Apical] Respiratory 16 14 14 Rate Blood Pressure Blood Pressure 122/74 117/52 L 120/51 L [Left Upper Arm ] O2 Sat by Pulse 100 100 100 Oximetry O2 Sat by Pulse Oximetry [ Nasal Cannula] O2 Sat by Pulse Oximetry [Room Air] 03/04/20 03/04/20 03/04/20 13:45 14:00 14:17 Temperature Temperature [ 37.0 C 36.9 C 37.2 C Temporal] Pulse, Peripheral Pulse, 75 98 100 Peripheral [ Apical] Respiratory 14 14 Rate Blood Pressure Blood Pressure 113/51 L 106/43 L [Left Upper Arm ] O2 Sat by Pulse 100 98 Oximetry O2 Sat by Pulse Oximetry [ Nasal Cannula] O2 Sat by Pulse Oximetry [Room Air] 03/04/20 03/04/20 03/04/20 15:00 16:01 17:35 Temperature Temperature [ 37.1 C 36.6 C 36.9 C Temporal] Pulse, Peripheral Pulse, 98 90 75 Peripheral [ Apical] Respiratory 14 14 14 Rate Blood Pressure Blood Pressure 117/70 105/71 110/57 L [Left Upper Arm ] O2 Sat by Pulse 98 98 100 Oximetry O2 Sat by Pulse Oximetry [ Nasal Cannula] O2 Sat by Pulse Oximetry [Room Air] 03/04/20 03/04/20 03/05/20 20:14 23:34 04:33 Temperature 37.2 C 37.8 C 38.0 C Temperature [ Temporal] Pulse, 80 77 70 Peripheral Pulse, Peripheral [ Apical] Respiratory 15 15 15 Rate Blood Pressure 111/57 L 104/66 113/71 Blood Pressure [Left Upper Arm ] O2 Sat by Pulse 100 100 98 Oximetry O2 Sat by Pulse Oximetry [ Nasal Cannula] O2 Sat by Pulse Oximetry [Room Air] 03/05/20 05:25 Temperature 36.9 C Temperature [ Temporal] Pulse, 74 Peripheral Pulse, Peripheral [ Apical] Respiratory Rate Blood Pressure Blood Pressure [Left Upper Arm ] O2 Sat by Pulse 97 Oximetry O2 Sat by Pulse Oximetry [ Nasal Cannula] O2 Sat by Pulse Oximetry [Room Air] Physical Exam General: Alert and oriented, no acute distress Lungs: Clear to auscultation bilaterally Heart: Regular rate and rhythm Abdomen: Soft, minimal appropriate tenderness, non-distended, fundus midline, nontender and at the umbilicus Incision: Clean, dry and intact, no erythema, bleeding or drainage with Steri- Strips in place, small amount of bleeding onto the Telfa pad from previous day. No active bleeding at this time. Extremities: 1+ edema in bilateral lower extremities to mid shins, no calf tenderness Labs: Laboratory Results - last 24 hr 03/04/20 03/04/20 03/04/20 Range/Units 08:30 09:11 09:11 WBC (3.98-10.04) K/mm3 RBC (3.98-5.22) M/mm3 Hgb (11.2-15.7) gm/dl Hct (34.1-44.9) % MCV (79.4-94.8) fl MCH (25.6-32.2) pg MCHC (32.2-35.5) g/dl RDW Std Deviation (36.4-46.3) fL Plt Count (182-369) K/mm3 MPV (9.4-12.3) fl Neut % (Auto) (34.0-71.1) % Lymph % (Auto) (19.3-51.7) % [place]pson % (Auto) (4.7-12.5) % Eos % (Auto) (0.7-5.8) Baso % (Auto) (0.1-1.2) % Neut # (Auto) (1.56-6.13) K/mm3 Lymph # (Auto) (1.18-3.74) K/mm3 [place]pson # (Auto) (0.24-0.36) K/mm3 Eos # (Auto) (0.04-0.36) K/mm3 Baso # (Auto) (0.01-0.08) K/mm3 Manual Slide Review Normal smear POC Glucose (70-105) mg/dL RPR Non-reactive (NONREACTIVE) SARS-CoV-2 RNA (MIKE) Positive H (NEGATIVE) Blood Type Gel Antibody Screen 03/04/20 03/04/20 03/05/20 Range/Units 09:11 15:51 06:05 WBC 19.33 H 15.02 H (3.98-10.04) K/mm3 RBC 3.66 L 3.36 L (3.98-5.22) M/mm3 Hgb 11.9 10.8 L (11.2-15.7) gm/dl Hct 36.0 33.2 L (34.1-44.9) % MCV 98.4 H 98.8 H (79.4-94.8) fl MCH 32.5 H 32.1 (25.6-32.2) pg MCHC 33.1 32.5 (32.2-35.5) g/dl RDW Std Deviation 45.6 46.0 (36.4-46.3) fL Plt Count 183 173 L (182-369) K/mm3 MPV 10.0 9.8 (9.4-12.3) fl Neut % (Auto) 84.7 H 80.7 H (34.0-71.1) % Lymph % (Auto) 7.9 L 11.9 L (19.3-51.7) % Upson % (Auto) 6.8 6.9 (4.7-12.5) % Eos % (Auto) 0 L 0.1 L (0.7-5.8) Baso % (Auto) 0.1 0.1 (0.1-1.2) % Neut # (Auto) 16.40 H 12.13 H (1.56-6.13) K/mm3 Lymph # (Auto) 1.52 1.78 (1.18-3.74) K/mm3 Upson # (Auto) 1.31 H 1.04 H (0.24-0.36) K/mm3 Eos # (Auto) 0.00 L 0.01 L (0.04-0.36) K/mm3 Baso # (Auto) 0.01 0.01 (0.01-0.08) K/mm3 Manual Slide Review Abnormal smear POC Glucose (70-105) mg/dL RPR (NONREACTIVE) SARS-CoV-2 RNA (MIKE) (NEGATIVE) Blood Type A POSITIVE Gel Antibody Screen Negative 03/05/20 Range/Units 08:09 WBC (3.98-10.04) K/mm3 RBC (3.98-5.22) M/mm3 Hgb (11.2-15.7) gm/dl Hct (34.1-44.9) % MCV (79.4-94.8) fl MCH (25.6-32.2) pg MCHC (32.2-35.5) g/dl RDW Std Deviation (36.4-46.3) fL Plt Count (182-369) K/mm3 MPV (9.4-12.3) fl Neut % (Auto) (34.0-71.1) % Lymph % (Auto) (19.3-51.7) % Upson % (Auto) (4.7-12.5) % Eos % (Auto) (0.7-5.8) Baso % (Auto) (0.1-1.2) % Neut # (Auto) (1.56-6.13) K/mm3 Lymph # (Auto) (1.18-3.74) K/mm3 Upson # (Auto) (0.24-0.36) K/mm3 Eos # (Auto) (0.04-0.36) K/mm3 Baso # (Auto) (0.01-0.08) K/mm3 Manual Slide Review POC Glucose 92 (70-105) mg/dL RPR (NONREACTIVE) SARS-CoV-2 RNA (MIKE) (NEGATIVE) Blood Type Gel Antibody Screen ASSESSMENT: 24-year-old female -0-1-3 s/p primary section POD #1 for arrest of descent at +1 station, complicated by gestational diabetes controlled by insulin and COVID-19 infection diagnosed on admission PLAN: * Doing well * Bottlefeeding with minimal difficulty. Assist as needed * Incision healing well. Continue to keep clean and dry. * Lochia minimal. Continue to monitor for appropriate lochia. * Monitor for urination with recent removal of the Melo catheter * Patient with 1 episode of fever to 38.0 C overnight, no additional fever since then. We will continue to monitor closely to see if she is continuing to be febrile. Concerned that this could be due to COVID-19 infection versus endometritis * Patient's fasting glucose level this morning was 92. No elevation of her fasting glucose. We will recheck her fasting glucose in the morning of POD #2 * Continue routine post-operative care * Anticipate discharge home tomorrow if she continues to be healing well without any additional fevers Jose Finley MD 9:44 AM 03/05/2020
[2020-03-05] MEDS: Ibuprofen 600 MG Tab PO PRN ×2 (11:54→18:01)
[2020-03-06] MEDS: Acetaminophen/oxyCODONE 325-5 MG Tab PO PRN ×2 (03:37→09:41)
[2020-03-06] MEDS: Prenatal Multivitamin with Calcium/Folic Acid/Iron Tab PO SCH (09:41)
[2020-03-06] MEDS: Docusate Sodium 100 MG Cap PO SCH (09:41)
--- NOTE | 2020-03-06 10:50 | PCM.SN.2 ---
- Free Text/Narrative Note: Post Operative Progress Note POD #2 Subjective: Doing well overall. Ambulating without difficulty. Lochia minimal. Voiding without difficulty. Passing flatus. Tolerating regular diet without nausea or vomiting. Pain controlled with oral medications. Bottlefeeding with minimal difficulty. Objective: Vitals: Vital Signs - 24 hr 03/05/20 03/05/20 03/05/20 11:00 11:45 14:19 Temperature 37.3 C 36.8 C Pulse, 97 93 Peripheral Respiratory 14 15 14 Rate Blood Pressure 109/52 L 113/62 O2 Sat by Pulse 98 98 100 Oximetry 03/05/20 03/05/20 03/06/20 14:22 20:28 03:34 Temperature 36.8 C 37.1 C 37.2 C Pulse, 89 91 79 Peripheral Respiratory 15 16 16 Rate Blood Pressure 107/64 89/66 L O2 Sat by Pulse 100 100 98 Oximetry 03/06/20 03:35 Temperature Pulse, 70 Peripheral Respiratory Rate Blood Pressure 102/64 O2 Sat by Pulse 98 Oximetry Physical Exam General: Alert and oriented, no acute distress Lungs: Clear to auscultation bilaterally Heart: Regular rate and rhythm Abdomen: Soft, minimal appropriate tenderness, non-distended, fundus midline, nontender and at the umbilicus Incision: Clean, dry and intact, no erythema, bleeding or drainage with Steri- Strips in place. Extremities: Trace edema in bilateral lower extremities to mid shins, no calf tenderness Labs: ASSESSMENT: 24-year-old female -0-1-3 s/p primary section POD #2 for arrest of descent at +1 station, complicated by gestational diabetes controlled by insulin and COVID-19 infection diagnosed on admission PLAN: * Doing well * Bottlefeeding with minimal difficulty. Assist as needed * Incision healing well. Continue to keep clean and dry. * Lochia minimal and continuing to decrease. Continue to monitor for appropriate lochia. * Patient afebrile overnight. Uncertain of exact cause of episode of fever on POD #1. * Continue routine post-operative care * Discharge home today Jose Finley MD 10:48 AM 03/06/2020
--- NOTE | 2020-03-06 11:00 | PCM.DCSUM1 ---
Discharge Summary - Hospital Course Free Text/Narrative:: Procedure in Detail: The patient was in L&D room #3 and had been pushing for approximately 1 hour and 45 minutes with minimal descent of the head. Patient had been counseled on available options to assist with attempted normal delivery including continued pushing with changing of positions or use of a vacuum extractor to assist with delivery. Patient declined these options. She was counseled on possible section and she stated that she would like to proceed with section. The risks, benefits and complications were discussed with the patient. The patient desired to proceed with section and appropriate consents were signed. The patient was taken to operating room #2. A Time Out was held and the patient was identified using 2 identifiers and the procedure was confirmed. The patient was given spinal anesthesia and was placed in dorsal supine position with leftward tilt. She was given 2 g Ancef IV and azithromycin 500 mg IV for antibiotic prophylaxis. A Melo catheter was inserted without difficulty. The patient was prepped and draped in the usual sterile manner. The abdominal skin was tested and the spinal anesthesia was found to be adequate. The skin was injected with 0.5% marcaine for local anesthesia. A Pfannenstiel skin incision was made and carried down through the subcutaneous tissue to the fascia with the scapel. The fascia was nicked in the midline using a scalpel and the fascial incision was extended transversely with Doran scissors. The inferior aspect of the fascia was grasped with Marylin clamps and tented upwards. The fascia was from the underlying rectus muscle bluntly and sharply with Doran scissors. Attention was then turned to the superior aspect of the fascia and was grasped using Marylin clamps and tented upwards. The underlying rectus muscle was dissected off bluntly and sharply with Doran scissors. The peritoneum was identified and entered bluntly. The bladder blade was inserted and the lower uterine segment was identified. A low transverse uterine incision was made sharply with a scalpel and extended laterally bluntly. The infant's head was brought to the uterine incision, the bladder blade was removed and the was delivered atraumatically. On 03/04/2020 a live male infant was delivered in vertex position at 11:08, wt of 4150 grams, 9 pounds and 2.4 ounces. APGARS were 8 & 9. The nose and mouth were suctioned with bulb suction, the cord was doubly clamped and cut and was transferred to the awaiting card game operator. The placenta was removed intact and appeared normal with a three vessel cord. The uterus was exteriorized and the uterine cavity was cleaned using lap sponges. The hysterotomy was closed with a running locked suture of 0-Vicryl. There was notation of a separation of the hysterotomy near the midline where the suture likely tore through the uterine wall. This was repaired with a [id number] suture with 0 Vicryl. A second suture of 0-Vicryl was used to imbricate the hysterotomy. The hysterotomy was noted to have a small amount of bleeding near the left end of the hysterotomy and this was made hemostatic with a [id number] suture with 0 Vicryl. The hysterotomy was hemostatic at this time. The uterus, tubes and ovaries appeared overall normal. The uterus was then returned into the abdominal cavity. The hysterotomy was noted to have small areas of bleeding that were cauterized and afterward the incision remained hemostatic inside the abdominal cavity. The fascia was noted to be hemostatic and the fascia was then reapproximated with running sutures of 1 PDS. The skin was reapproximated using 4-0 Monocryl and Steri-strips were applied over the incision. Instrument, sponge, and needle counts were correct prior to the abdominal closure and at the conclusion of the case. Diagnosis: Stroke: No - Discharge Data Discharge Date: 03/06/20 Discharge Disposition: Home, Self-Care 01 Condition: Good - Referral to Home Health Primary Care Physician: Raul Dunne PA-C - Discharge Diagnosis/Problem(s) (1) 38 weeks gestation of SNOMED Code(s): 63841607 ICD Code: Z3A.38 - 38 WEEKS GESTATION OF Status: Acute Current Visit: Yes (2) COVID-19 affecting in third trimester SNOMED Code(s): 358866091, 144838441 ICD Code: O98.513 - OTHER VIRAL DISEASES COMPLICATING , THIRD TRIMESTER; U07.1 - COVID-19 Status: Acute Current Visit: Yes (3) White classification A2 gestational diabetes mellitus (GDM), insulin controlled SNOMED Code(s): 22056552 ICD Code: O24.414 - GESTATIONAL DIABETES IN , INSULIN CONTROLLED Status: Acute Current Visit: Yes (4) Arrest of descent, delivered, current hospitalization SNOMED Code(s): 53777462, 657555425 ICD Code: O62.1 - SECONDARY UTERINE INERTIA Status: Acute Current Visit: Yes (5) delivery delivered SNOMED Code(s): 260389825 ICD Code: O82 - ENCOUNTER FOR DELIVERY WITHOUT INDICATION Status: Acute Current Visit: Yes - Patient Summary/Data Operative Procedure(s) Performed: Primary section Complications: None Consults: None Recommended Follow-up Testing/Procedures: Recommend for patient to have 2-hour glucose tolerance test at 6 weeks . Hospital Course: Tanna Kaur was admitted for advanced labor. On arrival she was noted to be complete with a bulging bag of water. She was GBS negative. She had artificial rupture membranes with return of clear fluid. Patient began pushing and after pushing for approximately 1 hour and 45 minutes patient was counseled on lack of progress. Patient made progress to 0 to +1 station with minimal descent with additional pushing. Patient was counseled on her options and she desired to p roceed with primary section due to arrest of dilation. Patient tested positive for COVID-19 infection at this time. She was taken back to the OR and given spinal injection for anesthesia. She was given Ancef 2 g IV and azithromycin 500 mg IV for antibiotic prophylaxis. She was prepped and draped in the normal fashion. On 03/04/2020 she had a primary delivery of a live male infant at 11:08. Apgars of 8 and 9. Weight of 4150 g (9 pounds 2.4 ounces). She was closed in a normal fashion. There were no complications with the procedure. Please see the operative report for full details. Her post operative course was uneventful. Her pain was well controlled and she had minimal lochia. She was ambulating, tolerating a regular diet and voiding normally. She was passing flatus and has not had a bowel movement. She was bottle feeding without difficulty. She was afebrile and her hematocrit was 33.2 on POD #1. She desired to be discharged home on the morning of POD #2.patient had one isolated fever after delivery on POD #1 that resolved spontaneously. She did not have any additional fevers on the unit. Her blood type is A+. - Patient Instructions Diet: Regular Diet as Tolerated Activity: Apply Ice, As Tolerated, No Lifting Over 20 Pounds Activity, Other: Nothing in the vagina for 6 weeks Driving: Do Not Drive (While taking narcotic medications are having significant pain.) Showering/Bathing: May Shower Wound/Incision Care: Keep Operative Site/Wound Site Clean and Dry Notify Provider of: Fever, Increased Pain, Swelling and Redness, Drainage, Nausea and/or Vomiting Other/Special Instructions: Please contact your physician's office if you note any bleeding or pus coming from the abdominal incision. Please contact your physician's office if you have heavy vaginal bleeding enough to soak a pad in less than an hour for several hours. Monitor for any signs of an infection in the breasts with severe pain or redness of the breast. - Discharge Plan *PRESCRIPTION DRUG MONITORING PROGRAM REVIEWED*: Yes *COPY OF PRESCRIPTION DRUG MONITORING REPORT IN PATIENT SVETLANA: No Home Medications: Home Meds Pnv No.95/Ferrous Fum/Folic AC [ Caplet] 1 each PO DAILY 10/18/19 [History] Acetaminophen/oxyCODONE [Percocet 325-5 MG] 1 - 2 tab PO Q6H PRN #30 tablet 03/06/20 [Rx] Docusate Sodium [Colace] 100 mg PO BID cap 03/06/20 [Rx] Ibuprofen [Motrin] 600 mg PO Q6H PRN tablet 03/06/20 [Rx] Patient Handouts: Delivery, Care After, Care After Delivery Referrals: Jose Finley MD [Physician] - (Follow-up in 2 weeks for routine postoperative visit or earlier as needed for any other problems as they may arise.) - Discharge Summary/Plan Comment DC Time >30 min.: No - Patient Data Vitals - Most Recent: Last Vital Signs Temp 37.2 C 03/06/20 03:34 Pulse 70 03/06/20 03:35 Resp 16 03/06/20 03:34 BP 102/64 03/06/20 03:35 Pulse Ox 98 03/06/20 03:35 Weight - Most Recent: 88.451 kg I&O - Last 24 hours: Intake & Output 03/05/20 03/06/20 03/06/20 22:59 06:59 14:59 Intake Total 420 Balance 420 Med Orders - Current: Current Medications Acetaminophen (Tylenol) 650 mg PO Q4H PRN PRN Reason: Pain Last Admin: 03/05/20 09:00 Dose: 650 mg Documented by: Diphenhydramine HCl (Benadryl) 25 mg IVPUSH Q6H PRN PRN Reason: Itching or Nausea Docusate Sodium (Colace) 100 mg PO BID [facility] Last Admin: 03/06/20 09:41 Dose: 100 mg Documented by: Ephedrine Sulfate (Ephedrine Sulfate) 5 mg IVPUSH SEECOMMENT PRN PRN Reason: Other Oxytocin/Lactated Ringer's (Pitocin In Lr 10 Units/1,000 Ml) 10 unit in 1,000 mls @ 100 mls/hr IV .CONTINUOUS [facility] Ibuprofen (Motrin) 600 mg PO Q6H PRN PRN Reason: mild pain or fever Last Admin: 03/05/20 18:01 Dose: 600 mg Documented by: Magnesium Hydroxide (Milk Of Magnesia) 30 ml PO BEDTIME PRN PRN Reason: Constipation Naloxone HCl (Narcan) 0.1 mg IVPUSH SEECOMMENT PRN PRN Reason: Respiratory Depression Oxycodone/Acetaminophen (Percocet 325-5 Mg) 1 tab PO Q6H PRN PRN Reason: Pain (moderate 4-6) Last Admin: 03/06/20 09:41 Dose: 1 tab Documented by: Oxycodone/Acetaminophen (Percocet 325-5 Mg) 2 tab PO Q6H PRN PRN Reason: Pain (severe 7-10) Prenat Multivit/Talent/Iron/Folic Ac ( Plus Iron) 1 each PO DAILY [facility] Last Admin: 03/06/20 09:41 Dose: 1 each Documented by: Discontinued Medications Azithromycin (Zithromax) Confirm Administered Dose 500 mg .ROUTE .STK-MED ONE Stop: 03/04/20 10:20 Last Admin: 03/05/20 16:40 Dose: Not Given Documented by: Bupivacaine HCl (Marcaine 0.5%) Confirm Administered Dose 30 ml .ROUTE .STK-MED ONE Stop: 03/04/20 10:35 Last Admin: 03/04/20 11:03 Dose: 20 ml Documented by: Cefazolin Sodium (Ancef) Confirm Administered Dose 2 gm .ROUTE .STK-MED ONE Stop: 03/04/20 10:42 Citric Acid/Sodium Citrate (Bicitra Solution) 30 ml PO ONETIME ONE Stop: 03/04/20 10:10 Last Admin: 03/04/20 10:24 Dose: 30 ml Documented by: Diphenhydramine HCl (Benadryl) 25 mg IVPUSH Q6H PRN PRN Reason: Pruritis Ephedrine Sulfate (Ephedrine Sulfate) Confirm Administered Dose 50 mg .ROUTE .STK-MED ONE Stop: 03/04/20 11:23 Fentanyl (Sublimaze) 50 mcg IVPUSH Q5M PRN PRN Reason: Pain Oxytocin/Lactated Ringer's (Pitocin In Lr 10 Units/1,000 Ml) 10 unit in 1,000 mls @ 500 mls/hr IV .CONTINUOUS RANI Lactated Ringer's (Ringers, Lactated) 1,000 mls @ 100 mls/hr IV ASDIRECTED [facility] Last Infusion: 03/04/20 15:54 Dose: Infused Documented by: Lactated Ringer's (Ringers, Lactated) 1,000 mls @ 125 mls/hr IV ASDIRECTED [facility] Last Admin: 03/04/20 13:20 Dose: 125 mls/hr Documented by: Cefazolin Sodium/Dextrose 2 gm (/ Premix) 50 mls @ 100 mls/hr IV ONETIME ONE Stop: 03/04/20 10:38 Last Admin: 03/05/20 16:40 Dose: Not Given Documented by: Azithromycin 500 mg/ Sodium (Chloride) 250 mls @ 250 mls/hr IV ONETIME ONE Stop: 03/04/20 11:10 Lactated Ringer's (Ringers, Lactated) Confirm Administered Dose 2,000 mls @ as directed .ROUTE .STK-MED ONE Stop: 03/04/20 10:42 Dextrose/Lactated Ringer's (Dextrose 5%-Lactated Ringers) 1,000 mls @ 125 mls/hr IV ASDIRECTED [facility] Stop: 03/04/20 22:16 Last Admin: 03/04/20 17:21 Dose: 125 mls/hr Documented by: Ketorolac Tromethamine (Toradol) Confirm Administered Dose 30 mg .ROUTE .STK-MED ONE Stop: 03/04/20 10:42 Ketorolac Tromethamine (Toradol) 30 mg IVPUSH Q6H [facility] Stop: 03/05/20 05:31 Last Admin: 03/05/20 05:26 Dose: 30 mg Documented by: Lidocaine HCl (Xylocaine 1%) 50 ml INJECT ONETIME ONE Stop: 03/04/20 08:17 Last Admin: 03/05/20 16:39 Dose: Not Given Documented by: Meperidine HCl (Meperidine) Confirm Administered Dose 50 mg .ROUTE .STK-MED ONE Stop: 03/04/20 11:10 Meperidine HCl (Meperidine) 25 mg IVPUSH ONETIME PRN PRN Reason: Shivering Metoclopramide HCl (Reglan) 10 mg IVPUSH ONETIME ONE Stop: 03/04/20 10:10 Last Admin: 03/04/20 10:24 Dose: 10 mg Documented by: Miscellaneous Medication (Phenylephrine 1 Mg/10 Ml-Ns) Confirm Administered Dose 1 mg .ROUTE .STK-MED ONE Stop: 03/04/20 11:23 Morphine Sulfate (Duramorph Pf) Confirm Administered Dose 10 mg .ROUTE .STK-MED ONE Stop: 03/04/20 10:44 Nalbuphine HCl (Nubain) 10 mg IVPUSH Q2H PRN PRN Reason: Pain Ondansetron HCl (Zofran) 4 mg IVPUSH Q4H PRN PRN Reason: Nausea/Vomiting Ondansetron HCl (Zofran) Confirm Administered Dose 4 mg .ROUTE .STK-MED ONE Stop: 03/04/20 10:42 Ondansetron HCl (Zofran) 4 mg IVPUSH ONETIME PRN PRN Reason: Nausea/Vomiting Oxytocin (Pitocin) Confirm Administered Dose 10 unit .ROUTE .STK-MED ONE Stop: 03/04/20 10:42 Oxytocin (Pitocin) Confirm Administered Dose 10 unit .ROUTE .STK-MED ONE Stop: 03/04/20 10:44 Sodium Chloride (Saline Flush) 10 ml FLUSH ASDIRECTED PRN PRN Reason: Keep Vein Open
== END 2020-03-06 13:30 | disposition home or self-care (01) | DRG 786 ==
LOC: JD.OBCHECK 07:59 → JD.OB 08:07 → JD.OBCHECK 08:15 → OBSVTOIN 10:09 → JD.OB 11:51
PROVIDERS: ADMIT Obstetrics & Gynecology; ATTEND Obstetrics & Gynecology
PROC: 10D00Z1 Extraction of Products of Conception, Low, Open Approach (ICD-10-PCS; principal; 2020-03-04)
PROC: 10907ZC Drainage of Amniotic Fluid, Therapeutic from Products of Conception, Via Natural or Artificial Opening (ICD-10-PCS; 2020-03-04)
DX: O24.424 Gestational diabetes mellitus in childbirth, insulin controlled (principal); U07.1 COVID-19; O98.52 Other viral diseases complicating childbirth; Z3A.38 38 weeks gestation of pregnancy; Z37.0 Single live birth; O62.1 Secondary uterine inertia; Z79.4 Long term (current) use of insulin
CPT/HCPCS: 01961; 36415; 59025; 82962; 85025; 86592; 86850; 86900; 86901; A9270-GY; J0690; J1885; J2175; J2270; J2370; J2405; J2590; J2765; J3490; J7120; J7121; U0002

== ENCOUNTER 2020-03-27 01:56 | Emergency (ER) | payer MEDICAID ==
--- NOTE | 2020-03-27 02:20 | EDM.PDOCBH ---
ED HPI GENERAL MEDICAL PROBLEM - General Chief Complaint: Drug or Alcohol Abuse Stated Complaint: [facility] Time Seen by Provider: 03/27/20 02:07 Source of Information: Reports: Patient History Limitations: Reports: No Limitations - History of Present Illness INITIAL COMMENTS - FREE TEXT/NARRATIVE: Mrs. Kaur is a pleasant 24-year-old woman who is now brought to the ED by EMS for nausea and vomiting that she developed after drinking excessively tonight. The patient told the triage nurse that she had had 7-8 shots of tequila. The patient's sister called 911, not knowing what else to do. Here in the ED, the patient is found to be hemodynamically stable, afebrile, saturating 93% on room air. Other than tonight's nausea and vomiting, the patient denies having a recent fever, chills, sore throat, ear pain, nasal or sinus congestion, cough, dyspnea, chest pain, palpitations, nausea, vomiting, constipation, diarrhea, abdominal pain, urinary symptoms, recent weight gain or weight loss, recent bloody bowel movements or black bowel movements, recent joint aches, headaches, or rashes. The patient's PCP is Dr. Johana Fink. Her Flying Teacher is Dr. Jose Finley. She did not receive an influenza vaccine this season, and declined an offer to receive one here in the ED. - Related Data Allergies Allergy/AdvReac Type Severity Reaction Status Date / Time No Known Allergies Allergy Verified 03/27/20 02:02 Home Meds: Home Meds . 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) Psychiatric History: Reports: Anxiety, Depression, Panic Attack Endocrine/Metabolic History: Reports: Diabetes, Gestational - Past Surgical History Female Surgical History: Reports: Section (x 1), D&C (x 1) Social & Family History - Tobacco Use Tobacco Use Status *Q: Former Tobacco User Years of Tobacco use: 6 Packs/Tins Daily: 1 - Caffeine Use Caffeine Use: Reports: None - Alcohol Use Alcohol Use History: Yes Alcohol Use Frequency: Socially (occasionally to excess) - Recreational Drug Use Recreational Drug Use: No - Living Situation & Occupation Living situation: Reports: , with Spouse, with Family (3 kids) Occupation: Unemployed ED ROS GENERAL - Review of Systems Review Of Systems: Comprehensive ROS is negative, except as noted in HPI. ED EXAM, BEHAVIORAL HEALTH - Physical Exam Exam: See Below Exam Limited By: No Limitations General Appearance: Alert, WD/WN, No Apparent Distress Eye Exam: Bilateral Eye: EOMI, Normal Inspection Ears: Normal External Exam, Hearing Grossly Normal Nose: Normal Inspection Throat/Mouth: Normal Inspection, Normal Lips, Normal Voice, No Airway Compromise Head: Atraumatic, Normocephalic Neck: Normal Inspection, Full Range of Motion Respiratory/Chest: No Respiratory Distress, Lungs Clear, Normal Breath Sounds, No Accessory Muscle Use Cardiovascular: Normal Peripheral Pulses, Regular Rate, Rhythm, No Edema, No Gallop, No JVD, No Murmur, No Rub GI/Abdominal: Normal Bowel Sounds, Soft, Non-Tender, No Organomegaly, No Distention, No Abnormal Bruit, No Mass Back Exam: Normal Inspection, Full Range of Motion, NT Extremities: Normal Inspection, Normal Range of Motion, No Pedal Edema, Normal Capillary Refill Neurological: Alert, Normal Cognition, No Motor/Sensory Deficits, Oriented x 3 Psychiatric: Normal Affect Skin Exam: Warm, Dry, Intact, Normal color, No rash COURSE, BEHAVIORAL HEALTH COMP - Course Vital Signs: Last Vital Signs Temp 36.3 C 03/27/20 01:59 Pulse 93 03/27/20 01:59 Resp 14 03/27/20 01:59 BP 109/74 03/27/20 01:59 Pulse Ox 93 L 03/27/20 01:59 Medical Clearance: 03/27/20 02:15 I offered to have the patient's nurse place an IV and give the patient some IV fluid and antinausea medicine, but the patient stated that she simply wants to go home. Departure - Departure Time of Disposition: 02:15 Disposition: Home, Self-Care 01 Condition: Good Clinical Impression: Alcohol intoxication, Nausea & vomiting - Discharge Information *PRESCRIPTION DRUG MONITORING PROGRAM REVIEWED*: Not Applicable *COPY OF PRESCRIPTION DRUG MONITORING REPORT IN PATIENT SVETLANA: Not Applicable Referrals: Johana Fink MD [Physician] - Jose Finley MD [Physician] - Forms: ED Department Discharge Additional Instructions: You were seen in the emergency room for nausea and vomiting after drinking excessively tonight. You were offered IV fluid and antinausea medicine, but declined, preferring to go home. If any other problems, please do not hesitate to return to the ER. Sepsis Event Note (ED) - Evaluation Sepsis Screening Result: No Definite Risk - Focused Exam Vital Signs: Vital Signs Temp Pulse Resp BP Pulse Ox 03/27/20 01:59 36.3 C 93 14 109/74 93 L
== END 2020-03-27 02:26 | disposition home or self-care (01) ==
LOC: JD.ED 01:56
DX: F10.129 Alcohol abuse with intoxication, unspecified (principal); R11.2 Nausea with vomiting, unspecified; Z87.891 Personal history of nicotine dependence
CPT/HCPCS: 99284

== ENCOUNTER 2020-06-04 19:03 | Emergency (ER) | payer MEDICAID ==
[2020-06-04] MEDS ORDERED: Sodium Chloride 0.9% 10 ML Syringe FLUSH PRN (19:39)
--- NOTE | 2020-06-04 19:47 | EDM.PDOC ---
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 Patient states she had a baby in March, and followed up with her INSURANCE OFFICE SUPERVISOR for her 6-week appointment and was placed on a control patch. Patient notes that she was supposed to get her menstrual cycle at around May 09 or however this started a little bit late on the , with vaginal spotting. She was still wearing her patch at that time so she took it off. She notes that after she took the patch off she developed some heavier vaginal bleeding which is not common for her. This started on May 29, and has continued until today. She notes that she has been changing her pad roughly every hour, she states that it is fairly saturated. She is not noticing any clots in the vaginal blood. She is not complaining of any urinary discomfort, frequency or urgency, she is having some low pelvic cramping that she believes to be associated with her period cramps. She also feels fairly bloated. Patient states she might have some lightheadedness, and some slight fatigue but she notes that she just started 2 jobs so it is hard to tell if it is related to that or the blood loss. Her INSURANCE OFFICE SUPERVISOR is Dr. Finley, and her primary care provider is Dr. Fink. She has no fevers or chills, cough/shortness of breath, nausea/vomiting/diarrhea. Patient did have COVID-19 in March. Bilateral Lower Pelvic Pain Score (Numeric/FACES): 3 - Related Data Allergies Allergy/AdvReac Type Severity Reaction Status Date / Time No Known Allergies Allergy Verified 03/27/20 02:02 Home Meds: Home Meds Control Patch 1 applic TOP WEEKLY 06/04/20 [History] medroxyPROGESTERone [Provera] 10 mg PO DAILY #10 tab 06/04/20 [Rx] Past Medical History HEENT History: Reports: Impaired Vision Gastrointestinal History: Reports: GERD INSURANCE OFFICE SUPERVISOR History: Reports: Therapeutic Psychiatric History: Reports: Anxiety, Depression, Panic Attack Other Psychiatric History: Depression Endocrine/Metabolic History: Reports: Diabetes, Gestational - Past Surgical History Head Surgeries/Procedures: Reports: None Female Surgical History: Reports: Section, D&C Social & Family History - Family History Family Medical History: No Pertinent Family History - Tobacco Use Tobacco Use Status *Q: Never Tobacco User - Caffeine Use Caffeine Use: Reports: None - Recreational Drug Use Recreational Drug Use: No - Living Situation & Occupation Living situation: Reports: , with Spouse, with Family (3 kids) Occupation: Unemployed ED ROS GENERAL - Review of Systems Review Of Systems: Comprehensive ROS is negative, except as noted in HPI. ED EXAM, RENAL/ - Physical Exam Exam: See Below Exam Limited By: No Limitations General Appearance: Alert, WD/WN, No Apparent Distress Eye Exam: Bilateral Eye: EOMI, Normal Inspection, PERRL Throat/Mouth: Normal Inspection, Normal Lips, Normal Teeth, Normal Gums, Normal Oropharynx, Normal Voice, No Airway Compromise Respiratory/Chest: No Respiratory Distress, Lungs Clear, Normal Breath Sounds, No Accessory Muscle Use, Chest Non-Tender Cardiovascular: Normal Peripheral Pulses, Regular Rate, Rhythm, No Edema GI/Abdominal: Normal Bowel Sounds, Soft, Non-Tender, No Distention, No Mass Extremities: Normal Inspection, Normal Capillary Refill Neurological: Alert, Oriented, Normal Cognition, No Motor/Sensory Deficits Psychiatric: Normal Affect, Normal Mood Skin Exam: Warm, Dry, Intact, No Rash, Pallor (slight pallor, pt has a normally darker skin color.) Course - Vital Signs Last Recorded V/S: Last Vital Signs Temp 98.3 F 06/04/20 19:20 Pulse 87 06/04/20 19:20 Resp 20 06/04/20 19:20 BP 114/74 06/04/20 19:20 Pulse Ox 100 06/04/20 19:20 - Orders/Labs/Meds Orders: Active Orders 24 hr Category Date Time Status Peripheral IV Care [RC] . DIRECTED Care 06/04/20 19:39 Ordered TYPE AND SCREEN [BBK] Stat Lab 06/04/20 19:39 Ordered Sodium Chloride 0.9% [Saline Flush] Med 06/04/20 19:39 Ordered 10 ml FLUSH ASDIRECTED PRN Peripheral IV Insertion Adult [OM.PC] Routine Oth 06/04/20 19:38 Ordered Medication Orders Sodium Chloride (Saline Flush) 10 ml FLUSH ASDIRECTED PRN PRN Reason: Keep Vein Open Last Admin: 06/04/20 19:53 Dose: 10 ml Documented by: JIE Labs: Laboratory Tests 06/04/20 Range/Units 19:50 WBC 7.88 (3.98-10.04) K/mm3 RBC 4.82 (3.98-5.22) M/mm3 Hgb 14.9 D (11.2-15.7) gm/dl Hct 45.5 H (34.1-44.9) % MCV 94.4 D (79.4-94.8) fl MCH 30.9 (25.6-32.2) pg MCHC 32.7 (32.2-35.5) g/dl RDW Std Deviation 42.4 (36.4-46.3) fL Plt Count 361 D (182-369) K/mm3 MPV 9.0 L (9.4-12.3) fl Neut % (Auto) 51.7 (34.0-71.1) % Lymph % (Auto) 39.1 (19.3-51.7) % [place] % (Auto) 7.0 (4.7-12.5) % Eos % (Auto) 1.8 (0.7-5.8) Baso % (Auto) 0.1 (0.1-1.2) % Neut # (Auto) 4.08 (1.56-6.13) K/mm3 Lymph # (Auto) 3.08 (1.18-3.74) K/mm3 [place] # (Auto) 0.55 H (0.24-0.36) K/mm3 Eos # (Auto) 0.14 (0.04-0.36) K/mm3 Baso # (Auto) 0.01 (0.01-0.08) K/mm3 Meds: Medications Generic Name Dose Route Start Last Admin Trade Name Freq PRN Reason Stop Dose Admin Sodium Chloride 10 ml 06/04/20 19:39 06/04/20 19:53 Saline Flush FLUSH 10 ml ASDIRECTED PRN Administration Keep Vein Open - Re-Assessments/Exams Free Text/Narrative Re-Assessment/Exam: 06/04/20 19:47 Patient presents to the ED for her heavy vaginal bleeding. We will get an IV placed d/t the history of her prolonged heavy bleeding. We will get a CBC and type and screen her in case she would need blood products. If she does not require blood products, we will go ahead and start her on Provera and have her follow up with her INSURANCE OFFICE SUPERVISOR tomorrow. 06/04/20 20:29 CBC has returned and the patient's hgb is 14.9 at this time. I will go ahead and start her on a course of Provera. Departure - Departure Time of Disposition: 20:32 Disposition: Home, Self-Care 01 Condition: Good Clinical Impression: Dysfunctional uterine bleeding - Discharge Information *PRESCRIPTION DRUG MONITORING PROGRAM REVIEWED*: No *COPY OF PRESCRIPTION DRUG MONITORING REPORT IN PATIENT SVETLANA: No Instructions: Abnormal Uterine Bleeding, [id number] Referrals: Johana Fink MD [Primary Care Provider] - Forms: ED Department Discharge Additional Instructions: You were evaluated in the ER today for your dysfunctional uterine bleeding. Your hemoglobin was at a level of 14.9, definitely not in the range to need a blood transfusion at this time. You have been started on Provera, this is a medication to kind of "reset your cycle". You will need to take 1 tablet once a day for 10 days. You may start your first dose tonight. Highly and strongly recommend you follow-up with your INSURANCE OFFICE SUPERVISOR due to this dysfunctional uterine bleeding, this to see if they have any other concerns regarding the amount of bleeding you are having. Recommend you continue to eat foods that contain lots of iron like red meat, green leafy vegetables, and keep yourself hydrated. Please return to the ER at any time if symptoms change or worsen. Sepsis Event Note (ED) - Evaluation Sepsis Screening Result: No Definite Risk - Focused Exam Vital Signs: Vital Signs Temp Pulse Resp BP Pulse Ox 06/04/20 19:20 98.3 F 87 20 114/74 100 - My Orders Last 24 Hours: My Active Orders 06/04/20 19:38 Peripheral IV Insertion Adult [OM.PC] Routine 06/04/20 19:39 Peripheral IV Care [RC] . DIRECTED TYPE AND SCREEN [BBK] Stat Sodium Chloride 0.9% [Saline Flush] 10 ml FLUSH ASDIRECTED PRN - Assessment/Plan Last 24 Hours: My Active Orders 06/04/20 19:38 Peripheral IV Insertion Adult [OM.PC] Routine 06/04/20 19:39 Peripheral IV Care [RC] . DIRECTED TYPE AND SCREEN [BBK] Stat Sodium Chloride 0.9% [Saline Flush] 10 ml FLUSH ASDIRECTED PRN
== END 2020-06-04 20:53 | disposition home or self-care (01) ==
LOC: JD.ED 19:03
DX: N93.8 Other specified abnormal uterine and vaginal bleeding (principal); R23.1 Pallor; Z86.16 Personal history of COVID-19
CPT/HCPCS: 36415; 85025; 86850; 86900; 86901; 99283; 99284

== ENCOUNTER 2020-11-07 14:44 | Emergency (ER) | payer MEDICAID ==
--- NOTE | 2020-11-07 15:26 | EDM.PDOC ---
ED HPI GENERAL MEDICAL PROBLEM - General Chief Complaint: Back Pain or Injury Stated Complaint: UPPER BACK PAIN AND SOB/ AFTER FALL Time Seen by Provider: 11/07/20 15:26 - History of Present Illness INITIAL COMMENTS - FREE TEXT/NARRATIVE: 25-year-old female presents the emergency room with chest wall pain shortness of breath and a cough. Monday the patient got tangled up in her sheets and managed to fall out of bed. Since that time she has had some chest wall pain it hurts when she takes a deep breath then. She is noticed increasing shortness of breath. Patient denies any possibility being . Her was recently diagnosed with bronchitis and wonders if perhaps she picked this up from him. She has not had a Covid vaccine. She is not aware of any fevers or chills. She has not had any other symptoms. She cannot isolate which side the pain is worse on. 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 Psychiatric History: Reports: Anxiety, Depression, Panic Attack Other Psychiatric History: Depression Endocrine/Metabolic History: Reports: Diabetes, Gestational - Infectious Disease History Infectious Disease History: Reports: C-Difficile, Novel Coronavirus - Past Surgical History Head Surgeries/Procedures: Reports: None Female Surgical History: Reports: Section, D&C Social & Family History - Family History Family Medical History: No Pertinent Family History - Tobacco Use Tobacco Use Status *Q: Never Tobacco User - Caffeine Use Caffeine Use: Reports: None - Recreational Drug Use Recreational Drug Use: No - Living Situation & Occupation Living situation: Reports: , with Spouse, with Family (3 kids) Occupation: Unemployed ED ROS GENERAL - Review of Systems Review Of Systems: See Below Constitutional: Reports: No Symptoms HEENT: Reports: No Symptoms Respiratory: Reports: Pleuritic Chest Pain Cardiovascular: Reports: No Symptoms GI/Abdominal: Reports: No Symptoms. Denies: Abdominal Pain, Nausea, Vomiting : Reports: No Symptoms Skin: Reports: No Symptoms Neurological: Reports: No Symptoms ED EXAM, GENERAL - Physical Exam Exam: See Below Exam Limited By: No Limitations General Appearance: Alert, No Apparent Distress Head: Atraumatic, Normocephalic Neck: Normal Inspection, Supple, Non-Tender, Full Range of Motion. No: Lymphadenopathy (L), Lymphadenopathy (R) Respiratory/Chest: No Respiratory Distress, Lungs Clear, Normal Breath Sounds, Other (Patient of the chest wall shows throughout with palpation tenderness no area seems to be worse than the other.) Cardiovascular: Regular Rate, Rhythm, No Edema, No Murmur GI/Abdominal: Normal Bowel Sounds, Soft, Non-Tender Back Exam: CVA Tenderness (L), CVA Tenderness (R) #1 Interpretation EKG Date: 11/07/20 Rhythm: NSR Rate (Beats/Min): 62 [place]: Normal P-Wave: Present QRS: Other (RSR in V1 V2) ST-T: Normal QT: Normal Comparison: No Change (No significant change from August 02, 2017) Course - Vital Signs Last Recorded V/S: Last Vital Signs Temp 36.7 C 11/07/20 15:13 Pulse 75 11/07/20 15:13 Resp 20 11/07/20 15:13 BP 109/67 11/07/20 15:13 Pulse Ox 100 11/07/20 15:13 - Orders/Labs/Meds Orders: Active Orders 24 hr Category Date Time Status EKG Documentation Completion [RC] STAT Care 11/07/20 15:45 Active Chest 2V [CR] Stat Exams 11/07/20 15:37 Taken CULTURE URINE [MREF] Stat Lab 11/07/20 16:45 Received Labs: Laboratory Tests 11/07/20 11/07/20 11/07/20 Range/Units 15:42 15:50 15:50 WBC 8.79 (3.98-10.04) K/mm3 RBC 4.63 (3.98-5.22) M/mm3 Hgb 14.8 (11.2-15.7) gm/dl Hct 43.9 (34.1-44.9) % MCV 94.8 (79.4-94.8) fl MCH 32.0 (25.6-32.2) pg MCHC 33.7 (32.2-35.5) g/dl RDW Std Deviation 44.0 (36.4-46.3) fL Plt Count 274 D (182-369) K/mm3 MPV 9.0 L (9.4-12.3) fl Neut % (Auto) 62.3 (34.0-71.1) % Lymph % (Auto) 30.1 (19.3-51.7) % [place] % (Auto) 6.3 (4.7-12.5) % Eos % (Auto) 0.9 (0.7-5.8) Baso % (Auto) 0.2 (0.1-1.2) % Neut # (Auto) 5.47 (1.56-6.13) K/mm3 Lymph # (Auto) 2.65 (1.18-3.74) K/mm3 [place] # (Auto) 0.55 H (0.24-0.36) K/mm3 Eos # (Auto) 0.08 (0.04-0.36) K/mm3 Baso # (Auto) 0.02 (0.01-0.08) K/mm3 D-Dimer, Quantitative (0.19-0.50) mg/L Sodium 142 (136-145) mEq/L Potassium 3.7 (3.5-5.1) mEq/L Chloride 104 (98-107) mEq/L Carbon Dioxide 27 (21-32) mEq/L Anion Gap 14.7 (5-15) BUN 13 (7-18) mg/dL Creatinine 0.7 (0.55-1.02) mg/dL Est Cr Clr Drug Dosing 105.17 mL/min Estimated GFR (MDRD) > 60 (>60) mL/min BUN/Creatinine Ratio 18.6 H (14-18) Glucose 92 (70-99) mg/dL Calcium 9.4 (8.5-10.1) mg/dL Total Bilirubin 0.3 (0.2-1.0) mg/dL AST 18 (15-37) U/L ALT 29 (14-59) U/L Alkaline Phosphatase 71 (46-116) U/L Total Protein 7.1 (6.4-8.2) g/dl Albumin 3.6 (3.4-5.0) g/dl Globulin 3.5 gm/dL Albumin/Globulin Ratio 1.0 (1-2) HCG, Qual (NEGATIVE) Urine Color (Yellow) Urine Appearance (Clear) Urine pH (5.0-8.0) Ur Specific [place] (1.005-1.030) Urine Protein (Negative) Urine Glucose (UA) (Negative) Urine Ketones (Negative) Urine Occult Blood (Negative) Urine Nitrite (Negative) Urine Bilirubin (Negative) Urine Urobilinogen (0.2-1.0) Ur Leukocyte Esterase (Negative) Urine RBC (0-5) /hpf Urine WBC (0-5) /hpf Ur Squamous Epith Cells (0-5) /hpf Urine Bacteria (FEW) /hpf Urine Mucus (FEW) /hpf SARS-CoV-2 RNA (MIKE) Negative (NEGATIVE) 11/07/20 11/07/20 11/07/20 Range/Units 15:50 15:50 16:45 WBC (3.98-10.04) K/mm3 RBC (3.98-5.22) M/mm3 Hgb (11.2-15.7) gm/dl Hct (34.1-44.9) % MCV (79.4-94.8) fl MCH (25.6-32.2) pg MCHC (32.2-35.5) g/dl RDW Std Deviation (36.4-46.3) fL Plt Count (182-369) K/mm3 MPV (9.4-12.3) fl Neut % (Auto) (34.0-71.1) % Lymph % (Auto) (19.3-51.7) % [place] % (Auto) (4.7-12.5) % Eos % (Auto) (0.7-5.8) Baso % (Auto) (0.1-1.2) % Neut # (Auto) (1.56-6.13) K/mm3 Lymph # (Auto) (1.18-3.74) K/mm3 [place] # (Auto) (0.24-0.36) K/mm3 Eos # (Auto) (0.04-0.36) K/mm3 Baso # (Auto) (0.01-0.08) K/mm3 D-Dimer, Quantitative < 0.19 L (0.19-0.50) mg/L Sodium (136-145) mEq/L Potassium (3.5-5.1) mEq/L Chloride (98-107) mEq/L Carbon Dioxide (21-32) mEq/L Anion Gap (5-15) BUN (7-18) mg/dL Creatinine (0.55-1.02) mg/dL Est Cr Clr Drug Dosing mL/min Estimated GFR (MDRD) (>60) mL/min BUN/Creatinine Ratio (14-18) Glucose (70-99) mg/dL Calcium (8.5-10.1) mg/dL Total Bilirubin (0.2-1.0) mg/dL AST (15-37) U/L ALT (14-59) U/L Alkaline Phosphatase (46-116) U/L Total Protein (6.4-8.2) g/dl Albumin (3.4-5.0) g/dl Globulin gm/dL Albumin/Globulin Ratio (1-2) HCG, Qual Negative (NEGATIVE) Urine Color Light yellow (Yellow) Urine Appearance Clear (Clear) Urine pH 7.0 (5.0-8.0) Ur Specific [place] 1.015 (1.005-1.030) Urine Protein Negative (Negative) Urine Glucose (UA) Negative (Negative) Urine Ketones Negative (Negative) Urine Occult Blood Negative (Negative) Urine Nitrite Negative (Negative) Urine Bilirubin Negative (Negative) Urine Urobilinogen 0.2 (0.2-1.0) Ur Leukocyte Esterase Trace H (Negative) Urine RBC 0-5 (0-5) /hpf Urine WBC 5-10 H (0-5) /hpf Ur Squamous Epith Cells 0-5 (0-5) /hpf Urine Bacteria Few (FEW) /hpf Urine Mucus Few (FEW) /hpf SARS-CoV-2 RNA (MIKE) (NEGATIVE) Meds: Medications Discontinued Medications Generic Name Dose Route Start Last Admin Trade Name Freq PRN Reason Stop Dose Admin Ketorolac Tromethamine 30 mg 11/07/20 18:07 Ketorolac 30 Mg/Ml Sdv IM 11/07/20 18:08 ONETIME ONE - Re-Assessments/Exams Free Text/Narrative Re-Assessment/Exam: 11/07/20 15:46 Labs x-rays and EKG ordered unfortunately I cannot isolate which side the pain is worse on or if it is more anterior or posterior. 11/07/20 18:10 Is unrevealing we will give her some Toradol discharged with Naprosyn Departure - Departure Time of Disposition: 18:33 Disposition: Home, Self-Care 01 Clinical Impression: Chest wall pain - Discharge Information Referrals: Johana Fink MD [Primary Care Provider] - Forms: ED Department Discharge Additional Instructions: Return to the emergency room with any questions problems or worsening symptoms. You have been started on Naprosyn this is a Motrin like medication however he only take it twice daily take with meals. This was sent electronically to the [facility]. Follow-up with your regular healthcare provider at the end of this next week for recheck. Sepsis Event Note (ED) - Evaluation Sepsis Screening Result: No Definite Risk - Focused Exam Vital Signs: Vital Signs Temp Pulse Resp BP Pulse Ox 11/07/20 15:13 36.7 C 75 20 109/67 100 - My Orders Last 24 Hours: My Active Orders 11/07/20 15:37 Chest 2V [CR] Stat 11/07/20 15:45 EKG Documentation Completion [RC] STAT 11/07/20 16:45 CULTURE URINE [MREF] Stat - Assessment/Plan Last 24 Hours: My Active Orders 11/07/20 15:37 Chest 2V [CR] Stat 11/07/20 15:45 EKG Documentation Completion [RC] STAT 11/07/20 16:45 CULTURE URINE [MREF] Stat
[2020-11-07] MEDS ORDERED: Ketorolac 30 MG/ML SDV IM ONE (18:07)
--- NOTE | 2020-11-08 11:01 | CR ---
Chest: 2 views of the chest were obtained. Comparison: Prior chest x-ray of 08/02/17. Heart size and mediastinum are normal. Lungs are clear with no acute parenchymal change. Minimal scoliosis is noted within the spine. No acute osseous finding is seen. Impression: 1. Nothing acute is seen on 2 view chest x-ray. Diagnostic code #2
== END 2020-11-07 19:03 | disposition home or self-care (01) ==
LOC: JD.ED 14:44
DX: R07.89 Other chest pain (principal); Z20.822 Contact with and (suspected) exposure to COVID-19
CPT/HCPCS: 36415; 71046; 80053; 81001; 84703; 85025; 85379; 87086; 87635; 93005; 96372; 99285; J1885; 93010; 99283; U0002

== ENCOUNTER 2021-01-11 12:37 | Emergency (ER) | payer MEDICAID ==
[2021-01-11] MEDS ORDERED: Sodium Chloride 0.9% 10 ML Syringe FLUSH PRN (13:41)
--- NOTE | 2021-01-11 13:46 | EDM.PDOC ---
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 Patient states that her last menstrual period was roughly December 12 or . She had established at the clinic at the end of December but did not have an ultrasound at that time. Patient is a A1 (elective ). States that she will set up with care for INNOVATION ANALYST at [facility] by one of their providers. She had a pantiliner on yesterday, and noted there was some pink fluid on it, there was not enough to soak through an entire maxi pad however. She is having some lower abdominal discomfort. States that she was diagnosed with UTI at the beginning of December but did take her antibiotics at that time. She states she is not having any dysuria, frequency or urgency, but states she does have some feelings of relief of pressure when she does urinate. Patient denies any other sick-like symptoms, fever/chills, cough/shortness of breath, nausea/vomiting/diarrhea. 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 History: Reports: Therapeutic Psychiatric History: Reports: Anxiety, Depression, Panic Attack Other Psychiatric History: Depression Endocrine/Metabolic History: Reports: Diabetes, Gestational - Infectious Disease History Infectious Disease History: Reports: C-Difficile, Novel Coronavirus - Past Surgical History Head Surgeries/Procedures: Reports: None Female Surgical History: Reports: Section, D&C Social & Family History - Family History Family Medical History: No Pertinent Family History - Caffeine Use Caffeine Use: Reports: None - Living Situation & Occupation Living situation: Reports: , with Spouse, with Family (3 kids) Occupation: Unemployed ED ROS GENERAL - Review of Systems Review Of Systems: Comprehensive ROS is negative, except as noted in HPI. ED EXAM - Physical Exam Exam: See Below Exam Limited By: No Limitations General Appearance: Alert, WD/WN, No Apparent Distress Respiratory/Chest: No Respiratory Distress, Lungs Clear, Normal Breath Sounds, No Accessory Muscle Use, Chest Non-Tender Cardiovascular: Normal Peripheral Pulses, Regular Rate, Rhythm, No Edema GI/Abdominal Exam: Normal Bowel Sounds, Soft, Non-Tender, No Distention, No Mass Heart Tones: Not [place] Movement: Not Appreciated Extremities: Normal Inspection, Normal Capillary Refill Neurological: Alert, Oriented, Normal Cognition, No Motor/Sensory Deficits Psychiatric: Normal Affect, Normal Mood Skin Exam: Warm, Dry, Intact, Normal Color, No Rash Course - Vital Signs Last Recorded V/S: Last Vital Signs Temp Pulse 100 01/11/21 13:30 Resp 16 01/11/21 13:30 BP 107/64 01/11/21 13:30 Pulse Ox - Orders/Labs/Meds Orders: Active Orders 24 hr Category Date Time Status Peripheral IV Care [RC] . DIRECTED Care 01/11/21 13:41 Active ABO/RH TYPE [BBK] Stat Lab 01/11/21 13:50 Received UA W/MICROSCOPIC [URIN] Stat Lab 01/11/21 14:52 Received Sodium Chloride 0.9% [Saline Flush] Med 01/11/21 13:41 Active 10 ml FLUSH ASDIRECTED PRN Peripheral IV Insertion Adult [OM.PC] Stat Oth 01/11/21 13:41 Ordered Medication Orders Sodium Chloride (Sodium Chloride 0.9% 10 Ml Syringe) 10 ml FLUSH ASDIRECTED PRN PRN Reason: Keep Vein Open Last Admin: 01/11/21 13:47 Dose: 10 ml Documented by: JJ Labs: Laboratory Tests 01/11/21 01/11/21 Range/Units 13:50 13:50 WBC 10.33 H (3.98-10.04) K/mm3 RBC 4.90 (3.98-5.22) M/mm3 Hgb 15.3 (11.2-15.7) gm/dl Hct 45.8 H (34.1-44.9) % MCV 93.5 (79.4-94.8) fl MCH 31.2 (25.6-32.2) pg MCHC 33.4 (32.2-35.5) g/dl RDW Std Deviation 42.4 (36.4-46.3) fL Plt Count 304 (182-369) K/mm3 MPV 9.4 (9.4-12.3) fl Neut % (Auto) 67.3 (34.0-71.1) % Lymph % (Auto) 24.3 (19.3-51.7) % [place] % (Auto) 7.5 (4.7-12.5) % Eos % (Auto) 0.4 L (0.7-5.8) Baso % (Auto) 0.2 (0.1-1.2) % Neut # (Auto) 6.96 H (1.56-6.13) K/mm3 Lymph # (Auto) 2.51 (1.18-3.74) K/mm3 [place] # (Auto) 0.77 H (0.24-0.36) K/mm3 Eos # (Auto) 0.04 (0.04-0.36) K/mm3 Baso # (Auto) 0.02 (0.01-0.08) K/mm3 HCG, Quant 79481.0 mIU/mL Meds: Medications Generic Name Dose Route Start Last Admin Trade Name Freq PRN Reason Stop Dose Admin Sodium Chloride 10 ml 01/11/21 13:41 01/11/21 13:47 Sodium Chloride 0.9% 10 Ml Syringe FLUSH 10 ml ASDIRECTED PRN Administration Keep Vein Open - Re-Assessments/Exams Free Text/Narrative Re-Assessment/Exam: 01/11/21 13:46 Patient presents to the ER for the evaluation of her vaginal bleeding and cramping in . We will get a ultrasound, urinalysis and basic labs for further evaluation. 01/11/21 14:58 Ultrasound demonstrates early with dates noted at the gestational age of 6 weeks 4 days by ultrasound. An intrauterine gestational sac was evaluated, small pole noted as well as a yolk sac. There is a minimal subchorionic hemorrhage. heart rate was measured at 122 bpm 01/11/21 15:19 CBC is unremarkable for any acute blood loss. hCG level is 62,187. The patient's blood type from historic visits demonstrated that it was a positive. We will go ahead and discharge her and have her follow-up with OB if anything else should seem to worsen. Departure - Departure Time of Disposition: 15:19 Disposition: Home, Self-Care 01 Condition: Good Clinical Impression: Vaginal bleeding affecting early - Discharge Information *PRESCRIPTION DRUG MONITORING PROGRAM REVIEWED*: No *COPY OF PRESCRIPTION DRUG MONITORING REPORT IN PATIENT SVETLANA: No Instructions: Vaginal Bleeding During , First Trimester Forms: ED Department Discharge Additional Instructions: You were evaluated in the ER today regarding your abdominal pain/vaginal bleeding in . You did have some labs drawn, and these were within normal limits, your hCG level was 62,187, your blood type is a positive. Your ultrasound demonstrated an intrauterine gestation, with a small pole and yolk sac. Your child's heart rate was identified at 122 bpm. There was a small subchorionic hemorrhage noted as well, which is a small area of bleeding. Recommend that you do not lift anything heavier than a gallon of milk (5 lbs), do not engage in sexual activities, try to get as much pelvic rest as possible for the next few days. Please try not to exert yourself, rest and relax, and take it easy. If you are bleeding through more than 1-2 maxi pads every couple hours, this would be cause for concern to return to the ER for immediate management. Please follow up with your INNOVATION ANALYST at your next scheduled appointment. Please return to the ED at any time if your symptoms change or worsen. Sepsis Event Note (ED) - Focused Exam Vital Signs: Vital Signs Pulse Resp BP 01/11/21 13:30 100 16 107/64 - My Orders Last 24 Hours: My Active Orders 01/11/21 13:41 Peripheral IV Care [RC] . DIRECTED Sodium Chloride 0.9% [Saline Flush] 10 ml FLUSH ASDIRECTED PRN Peripheral IV Insertion Adult [OM.PC] Stat 01/11/21 13:50 ABO/RH TYPE [BBK] Stat 01/11/21 14:52 UA W/MICROSCOPIC [URIN] Stat - Assessment/Plan Last 24 Hours: My Active Orders 01/11/21 13:41 Peripheral IV Care [RC] . DIRECTED Sodium Chloride 0.9% [Saline Flush] 10 ml FLUSH ASDIRECTED PRN Peripheral IV Insertion Adult [OM.PC] Stat 01/11/21 13:50 ABO/RH TYPE [BBK] Stat 01/11/21 14:52 UA W/MICROSCOPIC [HERMILO] Stat
--- NOTE | 2021-01-11 14:39 | US ---
First trimester obstetrical ultrasound: Multiple real-time images were obtained transvaginally. Comparison: No prior study for current is available. Dates: Dates by LMP: WALI 08/19/21, gestational age 8 weeks 4 days Current ultrasound: WALI 09/02/21, gestational age of 6 weeks 4 days Single intrauterine gestational sac is seen. Small pole is noted as well as yolk sac. Minimal subchorionic hemorrhage is seen. Small hypoechoic area is seen within the maternal right ovary measuring 2.5 cm in greatest size most likely representing a small hemorrhagic corpus luteum cyst. Measurements: Elon-rump length: 0.67 cm - 6 weeks 4 days Heart rate: 122 bpm Impression: 1. Early with dates as noted above. 2. Small subchorionic hemorrhage is noted. 3. Other finding is believed to be incidental as noted above. Diagnostic code #2
== END 2021-01-11 15:56 | disposition home or self-care (01) ==
LOC: JD.ED 12:37
DX: O20.9 Hemorrhage in early pregnancy, unspecified (principal); Z3A.01 Less than 8 weeks gestation of pregnancy
CPT/HCPCS: 36415; 76817; 76817-26; 81001; 84702; 85025; 86900; 86901; 99284-25

== ENCOUNTER 2021-03-06 21:07 | Emergency (ER) | payer MEDICAID ==
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
== END 2021-03-06 21:54 | disposition home or self-care (01) ==
LOC: JD.ED 21:07
DX: O20.9 Hemorrhage in early pregnancy, unspecified (principal); Z3A.15 15 weeks gestation of pregnancy
CPT/HCPCS: 99284-25

== ENCOUNTER 2021-04-09 08:34 | Emergency (ER) | payer MEDICAID ==
[2021-04-09 09:50] LABS: CORONAVIRUS COVID-19 NAA NEGATIVE (NEGATIVE)
--- NOTE | 2021-04-09 10:14 | EDM.PDOC ---
<MoisesSwathi roche - Last Filed: 04/09/21 10:20> ED HPI GENERAL MEDICAL PROBLEM - General Chief Complaint: Respiratory Problem Stated Complaint: COUGH\WEAK Time Seen by Provider: 04/09/21 09:20 Source of Information: Reports: Patient History Limitations: Reports: No Limitations - History of Present Illness INITIAL COMMENTS - FREE TEXT/NARRATIVE: Ms. Tanna Kaur is a 25-year-old female who presents for evaluation with a chief complaint of cough, light headedness, body aches, headache. She says this started over a week ago. She has tried Musinex but that gave no relief. She reports being 19 weeks . Onset: Gradual Duration: Week(s): Generalized Pain Score (Numeric/FACES): 4 - Related Data Allergies Allergy/AdvReac Type Severity Reaction Status Date / Time No Known Allergies Allergy Verified 04/09/21 08:57 Home Meds: Home Meds Acetaminophen [Tylenol Extra Strength] 500 mg PO Q6H PRN 04/09/21 [History] Amoxicillin/Clavulanate K [Augmentin 500-125 MG] 1 tab PO BID #16 tablet 10/22 [Rx] Hydrocodone/Chlorphen P-Stirex [Hydrocodone-Chlorphen ER Susp] 5 ml PO Q12H PRN #60 ml 04/09/21 [Rx] Pnv No.95/Ferrous Fum/Folic AC [ Caplet] 1 tab PO DAILY 04/09/21 [History] Past Medical History HEENT History: Reports: Impaired Vision Gastrointestinal History: Reports: GERD 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 Psychiatric History: Reports: Anxiety, Depression, Panic Attack Other Psychiatric History: Depression Endocrine/Metabolic History: Reports: Diabetes, Gestational - Infectious Disease History Infectious Disease History: Reports: C-Difficile, Novel Coronavirus - Past Surgical History Head Surgeries/Procedures: Reports: None Female Surgical History: Reports: Section, D&C Social & Family History - Family History Family Medical History: No Pertinent Family History - Caffeine Use Caffeine Use: Reports: None - Living Situation & Occupation Living situation: Reports: , with Spouse, with Family (3 kids) Occupation: Unemployed ED ROS GENERAL - Review of Systems Review Of Systems: Comprehensive ROS is negative, except as noted in HPI. Constitutional: Reports: Fatigue, Decreased Appetite. Denies: Fever, Chills, Weakness HEENT: Reports: No Symptoms Respiratory: Reports: Cough, Sputum. Denies: Shortness of Breath, Wheezing, Hemoptysis Cardiovascular: Reports: No Symptoms Endocrine: Reports: No Symptoms GI/Abdominal: Reports: No Symptoms : Reports: No Symptoms Musculoskeletal: Reports: No Symptoms Skin: Reports: No Symptoms Neurological: Reports: No Symptoms Psychiatric: Reports: No Symptoms Hematologic/Lymphatic: Reports: No Symptoms Immunologic: Reports: No Symptoms ED EXAM, GENERAL - Physical Exam Exam: See Below Exam Limited By: No Limitations General Appearance: Alert, WD/WN, No Apparent Distress, Other (Temp 98.7, Pulse 94, RR 14, BP 99/64, SpO2 99% on room air) Eye Exam: Bilateral Eye: EOMI Ears: Normal External Exam, Hearing Grossly Normal, Normal TMs, Other (Erythema of the canal) Nose: Normal Inspection Throat/Mouth: Normal Inspection, Normal Lips, No Airway Compromise Head: Atraumatic, Normocephalic, Sinus Tenderness (Both fronal and maxillary sinues ) Neck: Normal Inspection, Supple, Non-Tender, Full Range of Motion Respiratory/Chest: No Respiratory Distress, Lungs Clear, Normal Breath Sounds, No Accessory Muscle Use Cardiovascular: Normal Peripheral Pulses, Regular Rate, Rhythm, No Edema GI/Abdominal: Normal Bowel Sounds, Soft, Other () Neurological: Alert, Oriented, Normal Cognition, No Motor/Sensory Deficits Psychiatric: Normal Affect, Normal Mood Skin Exam: Warm, Dry, Intact, Normal Color, No Rash Departure - Departure Time of Disposition: 10:15 Disposition: Home, Self-Care 01 Condition: Good Clinical Impression: Influenza A, Second trimester , Acute bacterial sinusitis - Discharge Information *PRESCRIPTION DRUG MONITORING PROGRAM REVIEWED*: Not Applicable Prescriptions: Amoxicillin/Clavulanate K [Augmentin 500-125 MG] 1 tab PO BID #16 tablet Hydrocodone/Chlorphen P-Stirex [Hydrocodone-Chlorphen ER Susp] 5 ml PO Q12H PRN #60 ml PRN Reason: Paroxysmal cough. Influenza a Instructions: Influenza, Adult, [id number], Sinusitis, Adult, [id number] Referrals: PCP,None [Primary Care Provider] - Forms: ED Department Discharge, ED Return to Work/School Form Additional Instructions: You were seen today in the Emergency Room for evaluation of cough, body ache and light headedness. You have tested positive for Influenza A. Quarantining or isolating is not required, but we do suggest you stay home, out of the general public, while you are still having symptoms. Continue Tylenol 1 g every 4 hours as necessary for relief of fever and/or chills. You cannot use Motrin or Aleve in . Antibiotic is Augmentin 500/1 2 5 mg tablet twice daily for the next 8 days to clear up sinus infection. May use cough syrup Tussionex 5 mils every 12 hours as necessary for relief of severe paroxysmal cough. It is primarily designed for use about an hour before going to bed so that she can sleep without coughing all night. You should not operate a motor vehicle if you are using the cough syrup due to the narcotic within it. Note given to be off work for at least another 3 days. Sepsis Event Note (ED) - Evaluation Sepsis Screening Result: No Definite Risk <Austyn Galeano - Last Filed: 04/09/21 10:45> ED HPI GENERAL MEDICAL PROBLEM - History of Present Illness Onset Date: 04/03/21 (Has been ill for about a week.) Location: Reports: Face (Diffuse facial pain particularly periorbitally with nasal drip and congestion), Chest (Intermittent paroxysmal productive cough of slight green mucus.) Quality: Reports: Other (Mild generalized myalgia) Severity: Mild Improves with: Reports: None Worsens with: Reports: None Context: Denies: Activity, Exercise, Lifting, Sick Contact, Trauma, Other Associated Symptoms: Reports: Cough, cough w sputum, Fever/Chills, Headaches, Loss of Appetite, Malaise, Weakness, Other. Denies: Confusion, Chest Pain, Diaphoresis, Nausea/Vomiting, Seizure (Light greenish discoloration to sputum), Shortness of Breath, Syncope Treatments BALANCER: Reports: Acetaminophen Past Medical History : 3 Para: 2 ED ROS GENERAL - Review of Systems Review Of Systems: See Below ED EXAM, GENERAL - Physical Exam Exam: See Below Back Exam: Normal Inspection, Full Range of Motion Course - Vital Signs Last Recorded V/S: Last Vital Signs Temp 37.1 C 04/09/21 08:52 Pulse 94 04/09/21 08:52 Resp 14 04/09/21 08:52 BP 99/64 04/09/21 08:52 Pulse Ox 99 04/09/21 08:52 - Orders/Labs/Meds Labs: Laboratory Tests 04/09/21 Range/Units 08:59 Influenza Type A RNA Positive H (NEGATIVE) RSV RNA (INAAT) Negative (NEGATIVE) Influenza Type B RNA Negative (NEGATIVE) SARS-CoV-2 RNA ([facility]) Negative (NEGATIVE) - Radiology Interpretation Free Text/Narrative:: 25-year-old female presents to the ED for evaluation of paroxysmal cough headache and generalized myalgia. She has not felt well for the better part of a week. She states she is coughing up some mild greenish sputum at times. She is running a low-grade fever. Of note she is approximately 19 weeks gestation and is being followed by OB. Plan she will have influenza and COVID- 19 screens. Please she has one of the above. She reports her was ill with pneumonia about 3 weeks ago but is now improved. She has 2 children at home who apparently are well. Patient was seen by physician autopsy assistant student Swathi Bunch as documented on this patient. I agree with her documentation and treatment plan as written. - Re-Assessments/Exams Free Text/Narrative Re-Assessment/Exam: 04/09/21 10:40 patient has influenza A on testing. She has been ill for greater than a week and therefore she is not a candidate for Tamiflu. She has significant congestion of her paranasal sinuses with pain over the frontals and the maxillary's on exam. She will therefore be placed on Augmentin 500/125 mg tablet twice daily for the next 8 days to clear up infection. Also given a prescription for Tussionex 5 mils every 12 hours as needed for cough relief due to cough producing loss of bladder control and interrupting her ability to sleep. Departure - Departure Condition: Fair - Discharge Information *COPY OF PRESCRIPTION DRUG MONITORING REPORT IN PATIENT SVETLANA: Not Applicable Sepsis Event Note (ED) - Focused Exam Vital Signs: Vital Signs Temp Pulse Resp BP Pulse Ox 04/09/21 08:52 37.1 C 94 14 99/64 99
== END 2021-04-09 10:55 | disposition home or self-care (01) ==
LOC: JD.ED 08:34
DX: O99.512 Diseases of the respiratory system complicating pregnancy, second trimester (principal); J10.1 Influenza due to other identified influenza virus with other respiratory manifestations; J20.8 Acute bronchitis due to other specified organisms; B96.89 Other specified bacterial agents as the cause of diseases classified elsewhere; Z3A.19 19 weeks gestation of pregnancy; Z20.822 Contact with and (suspected) exposure to COVID-19
CPT/HCPCS: 0241U; 99284

== ENCOUNTER 2021-04-29 04:04 | Emergency (ER) | payer MEDICAID ==
[2021-04-29] MEDS ORDERED: Acetaminophen 325 MG Tab PO ONE (04:37)
== END 2021-04-29 06:57 | disposition home or self-care (01) ==
LOC: JD.ED 04:04
DX: O23.42 Unspecified infection of urinary tract in pregnancy, second trimester (principal); N39.0 Urinary tract infection, site not specified; O99.891 Other specified diseases and conditions complicating pregnancy; R55 Syncope and collapse; Z3A.22 22 weeks gestation of pregnancy
CPT/HCPCS: 36415; 80053; 81001; 82947; 83690; 85025; 85610; 93005; 99284; A9270; 93010; 99285

== ENCOUNTER 2021-08-24 05:01 | Inpatient (IN) | payer MEDICAID ==
[~2021-08-24 05:01] MED LIST: Sodium Chloride 0.9% 10 ML Syringe FLUSH PRN
[2021-08-24] MEDS: Lactated Ringers 1,000 ML IV SCH ×2 (05:28→06:06)
[2021-08-24] MEDS ORDERED: Metoclopramide 10 MG/2 ML SDV IVPUSH ONE (06:30)
[2021-08-24] MEDS ORDERED: Citric Acid/Sodium Citrate Solution 30 ML Cup PO ONE (06:30)
[2021-08-24] MEDS ORDERED: Morphine PF 10 MG/10 ML SDV ONE (06:46)
[2021-08-24] MEDS ORDERED: Oxytocin 10 Units/1 ML SDV ONE (06:46)
[2021-08-24] MEDS ORDERED: diphenhydrAMINE 50 MG/ML SDV ONE (06:46)
[2021-08-24] MEDS ORDERED: ceFAZolin 2 GM in Sodium Chloride 0.9% 50 ML IV ONE (07:00)
[2021-08-24] MEDS ORDERED: Oxytocin/Lactated Ringers 10 UNIT/1,000 ML BAG IV SCH (08:00)
[2021-08-24] MEDS ORDERED: Sodium Chloride 0.9% 10 ML Syringe FLUSH SCH (09:00)
== END 2021-08-24 07:41 | disposition home or self-care (01) | DRG 833 ==
LOC: JD.OB 05:01
PROVIDERS: ADMIT Obstetrics & Gynecology; ATTEND Obstetrics & Gynecology
DX: O36.8130 Decreased fetal movements, third trimester, not applicable or unspecified (principal); Z3A.35 35 weeks gestation of pregnancy; O99.613 Diseases of the digestive system complicating pregnancy, third trimester; K21.9 Gastro-esophageal reflux disease without esophagitis
CPT/HCPCS: 36415; 59025; 85025; 86592; 86850; 86900; 86901; A9270-GY; J1200; J2274; J2590; J2765; J7120

== ENCOUNTER 2021-08-25 19:34 | Inpatient (IN) | payer MEDICAID ==
[2021-08-25] MEDS ORDERED: Acetaminophen 325 MG Tab PO PRN ×2 (19:37→20:37)
[2021-08-25] MEDS ORDERED: Sodium Chloride 0.9% 10 ML Syringe FLUSH PRN (19:37)
[2021-08-25] MEDS ORDERED: Ondansetron 4 MG/2 ML SDV IVPUSH PRN (19:37)
[2021-08-25] MEDS ORDERED: Nalbuphine HCl 10 MG/ 1ML Amp IVPUSH PRN (19:37)
[2021-08-25] MEDS ORDERED: Oxytocin/Lactated Ringers 10 UNIT/1,000 ML BAG IV SCH (19:45)
[2021-08-25] MEDS ORDERED: Lactated Ringers 1,000 ML IV SCH (19:45)
[2021-08-25] MEDS ORDERED: Oxytocin 10 Units/1 ML SDV IM ONE (20:21)
[2021-08-25] MEDS ORDERED: Misoprostol 200 MCG Tab PO STA (20:21)
[2021-08-25] MEDS ORDERED: Docusate Sodium 100 MG Cap PO PRN (20:37)
[2021-08-25] MEDS ORDERED: Benzocaine/Menthol 20%-0.5% Spray 78 GM Cannister TOP PRN (20:37)
[2021-08-25] MEDS ORDERED: Witch Hazel Medicated Pads 40/Jar TOP PRN (20:37)
[2021-08-25] MEDS ORDERED: Sodium Chloride 0.9% 10 ML Syringe FLUSH SCH (21:00)
[2021-08-26] MEDS: Ibuprofen 600 MG Tab PO PRN ×2 (00:23→08:13)
== END 2021-08-26 21:02 | disposition home or self-care (01) | DRG 807 ==
LOC: JD.OBCHECK 19:34 → JD.OB 19:38 → JD.OBCHECK 19:49 → OBSVTOIN 20:22 → JD.OB 20:23
PROVIDERS: ADMIT Obstetrics & Gynecology; ATTEND Obstetrics & Gynecology
PROC: 10E0XZZ Delivery of Products of Conception, External Approach (ICD-10-PCS; principal; 2021-08-25)
DX: O34.211 Maternal care for low transverse scar from previous cesarean delivery (principal); Z37.0 Single live birth; O99.62 Diseases of the digestive system complicating childbirth; K21.9 Gastro-esophageal reflux disease without esophagitis; Z3A.39 39 weeks gestation of pregnancy; Z87.891 Personal history of nicotine dependence
CPT/HCPCS: 36415; 59409; 85027; 86592; 86850; 86900; 86901; A9270-GY; J2590

== ENCOUNTER 2021-08-27 11:21 | Emergency (ER) | payer MEDICAID ==
[2021-08-27] MEDS ORDERED: Iopamidol 755 Mg/ML 100 ML Bottle IVPUSH ONE (14:04)
[2021-08-27] MEDS ORDERED: Sodium Chloride 0.9% 10 ML Syringe FLUSH PRN (14:04)
[2021-08-27] MEDS ORDERED: Sodium Chloride 0.9% 100 ML IV SCH (14:15)
== END 2021-08-27 15:22 | disposition home or self-care (01) ==
LOC: JD.ED 11:21
DX: M79.661 Pain in right lower leg (principal); R00.2 Palpitations; R06.02 Shortness of breath; Z86.16 Personal history of COVID-19; Z79.899 Other long term (current) drug therapy
CPT/HCPCS: 36415; 71045; 71275; 80053; 83735; 84484; 85025; 85379; 93005; 93971; 99285; J3490; Q9967

== ENCOUNTER 2022-02-18 08:01 | Emergency (ER) | payer MEDICAID | END 2022-02-18 09:23 | disposition home or self-care (01) | LOC: JD.ED 08:01 | DX: S06.0X0A Concussion without loss of consciousness, initial encounter (principal); Z86.16 Personal history of COVID-19; W01.10XA Fall on same level from slipping, tripping and stumbling with subsequent striking against unspecified object, initial encounter | CPT/HCPCS: 70450; 70450-26; 99283 ==

== ENCOUNTER 2022-09-11 12:58 | Emergency (ER) | payer MEDICAID ==
[2022-09-11] MEDS ORDERED: Ketorolac 60 MG/2 ML SDV IM ONE (15:03)
== END 2022-09-11 16:22 | disposition home or self-care (01) ==
LOC: JD.ED 12:58
DX: M54.50 Low back pain, unspecified (principal); Z86.16 Personal history of COVID-19
CPT/HCPCS: 72100; 96372; 99283; J1885

== ENCOUNTER 2022-09-26 21:15 | Emergency (ER) | payer MEDICAID ==
[2022-09-26 22:20] LABS: BASOPHILS ABSOLUTE AUTO 0.02 K/mm3 (0.01-0.08); BASOPHILS PERCENT AUTO 0.2 % (0.1-1.2); EOSINOPHILS ABSOLUTE AUTO 0.15 K/mm3 (0.04-0.36); EOSINOPHILS PERCENT AUTO 1.5 (0.7-5.8); IMMATURE GRAN ABSOLUTE AUTO 0.01 K/mm3 (0.00-0.10); IMMATURE GRAN PERCENT AUTO 0.1 % (<=1.0); LYMPHOCYTES PERCENT AUTO 29.8 % (19.3-51.7); MEAN CORPUSCULAR HEMOGLOBIN 31.7 pg (25.6-32.2); MEAN CORPUSCULAR HGB CONC 34.1 g/dl (32.2-35.5); MEAN CORPUSCULAR VOLUME 92.8 fl (79.4-94.8); MEAN PLATELET VOLUME 8.9 fl (9.4-12.3); MONOCYTES ABSOLUTE AUTO 0.65 K/mm3 (0.24-0.36); MONOCYTES PERCENT AUTO 6.5 % (4.7-12.5); NEUTROPHILS ABSOLUTE AUTO 6.23 K/mm3 (1.56-6.13); NEUTROPHILS PERCENT AUTO 61.9 % (34.0-71.1); PLATELET COUNT,PLT 294 K/mm3 (182-369); RED BLOOD CELL COUNT 4.42 M/mm3 (3.98-5.22); WHITE BLOOD CELL COUNT,WBC 10.06 K/mm3 (3.98-10.04)
[2022-09-26 22:52] LABS: A/G RATIO 0.9 (1-2); ALBUMIN 3.3 g/dl (3.4-5.0); BILIRUBIN TOTAL 0.3 mg/dL (0.2-1.0); CALCIUM 9.5 mg/dL (8.5-10.1); EST CRCL DRUG DOSING (CG) 69.9 mL/min; MAGNESIUM 2.1 mg/dL (1.8-2.4); PROTEIN TOTAL,TP 7.1 g/dl (6.4-8.2); TSH 0.825 uIU/mL (0.358-3.74)
== END 2022-09-26 23:19 | disposition home or self-care (01) ==
LOC: JD.ED 21:15
DX: R00.2 Palpitations (principal)
CPT/HCPCS: 36415; 80053; 83735; 84443; 85025; 93005; 93246; 99285

== ENCOUNTER 2022-11-28 15:18 | Emergency (ER) | payer MEDICAID ==
[2022-11-28 16:56] LABS: BASOPHILS PERCENT AUTO 0.4 % (0.0-1.0); EOSINOPHILS ABSOLUTE AUTO 0.1 K/mm3 (0.0-0.4); EOSINOPHILS PERCENT AUTO 0.7 % (0.0-6.0); HEMATOCRIT 41.9 % (37.0-47.0); HEMOGLOBIN 14.4 gm/dl (12.0-16.0); IMMATURE GRAN ABSOLUTE AUTO 0.01 K/mm3 (0.00-0.05); IMMATURE GRAN PERCENT AUTO 0.1 % (0.0-0.4); LYMPHOCYTES ABSOLUTE AUTO 3.6 K/mm3 (1.0-4.8); LYMPHOCYTES PERCENT AUTO 36.4 % (24.0-44.0); MEAN CORPUSCULAR HEMOGLOBIN 31.9 pg (28.0-32.0); MEAN CORPUSCULAR HGB CONC 34.4 g/dl (32.0-36.0); MEAN CORPUSCULAR VOLUME 92.9 fl (83.0-99.0); MEAN PLATELET VOLUME 9.4 fl (9.4-12.3); MONOCYTES ABSOLUTE AUTO 0.5 K/mm3 (0.0-0.8); MONOCYTES PERCENT AUTO 4.9 % (0.0-8.0); NEUTROPHILS ABSOLUTE AUTO 5.7 K/mm3 (1.8-7.7); NEUTROPHILS PERCENT AUTO 57.5 % (41.0-71.0); PLATELET COUNT,PLT 282 K/mm3 (150-400); RED BLOOD CELL COUNT 4.51 M/mm3 (4.10-5.30); WHITE BLOOD CELL COUNT,WBC 9.89 K/mm3 (3.9-11.3)
[2022-11-28 16:59] LABS: A/G RATIO 0.8 (1-2); ALBUMIN 3.5 g/dl (3.4-5.0); ANION GAP 14.3 (5-15); BILIRUBIN TOTAL 0.2 mg/dL (0.2-1.0); CALCIUM 9.4 mg/dL (8.5-10.1); CREATININE 0.8 mg/dL (0.55-1.02); EST CRCL DRUG DOSING (CG) 86.6 mL/min; POTASSIUM,K 3.3 mEq/L (3.5-5.1); PROTEIN TOTAL,TP 7.7 g/dl (6.4-8.2)
[2022-11-28] MEDS ORDERED: Potassium Chloride 20 MEQ Tab.ER PO ONE (18:06)
[2022-11-28] MEDS ORDERED: Albuterol 6.7 GM Inhaler INH ONE (18:12)
== END 2022-11-28 19:30 | disposition home or self-care (01) ==
LOC: JD.ED 15:18
DX: J20.8 Acute bronchitis due to other specified organisms (principal); Z86.16 Personal history of COVID-19; Z20.822 Contact with and (suspected) exposure to COVID-19
CPT/HCPCS: 36415; 71046; 80053; 85025; 87635; 87651; 94640; 99285; A9270; 93010; 99284; U0002

== ENCOUNTER 2023-01-27 08:07 | Emergency (ER) | payer MEDICAID ==
[2023-01-27 08:59] LABS: BASOPHILS PERCENT AUTO 0.6 % (0.0-1.0); EOSINOPHILS ABSOLUTE AUTO 0.1 K/mm3 (0.0-0.4); EOSINOPHILS PERCENT AUTO 0.8 % (0.0-6.0); HEMATOCRIT 44.4 % (37.0-47.0); HEMOGLOBIN 15.5 gm/dl (12.0-16.0); IMMATURE GRAN ABSOLUTE AUTO 0.02 K/mm3 (0.00-0.05); IMMATURE GRAN PERCENT AUTO 0.3 % (0.0-0.4); LYMPHOCYTES ABSOLUTE AUTO 2.4 K/mm3 (1.0-4.8); LYMPHOCYTES PERCENT AUTO 33.8 % (24.0-44.0); MEAN CORPUSCULAR HGB CONC 34.9 g/dl (32.0-36.0); MEAN CORPUSCULAR VOLUME 91.5 fl (83.0-99.0); MEAN PLATELET VOLUME 9.8 fl (9.4-12.3); MONOCYTES ABSOLUTE AUTO 0.4 K/mm3 (0.0-0.8); MONOCYTES PERCENT AUTO 5.8 % (0.0-8.0); NEUTROPHILS ABSOLUTE AUTO 4.2 K/mm3 (1.8-7.7); NEUTROPHILS PERCENT AUTO 58.7 % (41.0-71.0); RED BLOOD CELL COUNT 4.85 M/mm3 (4.10-5.30); WHITE BLOOD CELL COUNT,WBC 7.21 K/mm3 (3.9-11.3)
[2023-01-27 09:05] LABS: APPEARANCE,URINE SLT CLOUDY (Clear); BILIRUBIN,URINE NEGATIVE (Negative); COLOR,URINE YELLOW (Yellow); GLUCOSE,URINE NEGATIVE (Negative); KETONES,URINE NEGATIVE (Negative); LEUKOCYTE ESTERASE,URINE 1+ (Negative); NITRITE,URINE NEGATIVE (Negative); OCCULT BLOOD,URINE NEGATIVE (Negative); PROTEIN,URINE NEGATIVE (Negative); UROBILINOGEN,URINE 0.2 (0.2-1.0)
[2023-01-27 09:05] LABS: PLATELET COUNT,PLT 177 K/mm3 (150-400)
[2023-01-27 09:10] LABS: RBC,URINE 0-5 /hpf (0-5)
[2023-01-27 09:11] LABS: AMORPHOUS SEDIMENT,URINE FEW /hpf (NOT SEEN); BACTERIA,URINE FEW /hpf (FEW); MUCUS,URINE FEW /hpf (FEW)
[2023-01-27 09:14] LABS: A/G RATIO 0.8 (1-2); ALANINE AMINOTRANSFERASE,ALT 30 U/L (14-59); ALBUMIN 3.3 g/dl (3.4-5.0); ALKALINE PHOSPHATASE 61 U/L (46-116); ANION GAP 15.2 (5-15); ASPARTATE AMNIOTRANSFERASE,AST 20 U/L (15-37); BILIRUBIN TOTAL 0.5 mg/dL (0.2-1.0); BLOOD UREA NITROGEN,BUN 9 mg/dL (7-18); BUN/CREATININE RATIO 11.3 (14-18); C-REACTIVE PROTEIN 1.3 mg/dL (<1.0); CALCIUM 9.3 mg/dL (8.5-10.1); CARBON DIOXIDE,CO2 24 mEq/L (21-32); CHLORIDE,CL 105 mEq/L (98-107); CREATININE 0.8 mg/dL (0.55-1.02); ESTIMATED GFR 103 mL/min (>60); GLUCOSE RANDOM 101 mg/dL (70-99); LIPASE 48 U/L (16-77); POTASSIUM,K 4.2 mEq/L (3.5-5.1); PROTEIN TOTAL,TP 7.4 g/dl (6.4-8.2); SODIUM,NA 140 mEq/L (136-145)
[2023-01-27 09:16] LABS: HCG QUANTITATIVE < 1.0 mIU/mL
[2023-01-27 09:22] LABS: SLIDE REVIEW NORMAL SMEAR
[2023-01-27] MEDS ORDERED: Sodium Chloride 0.9% 10 ML Syringe FLUSH PRN ×2 (09:55→10:13)
[2023-01-27] MEDS ORDERED: Iopamidol 612 MG/ML 100 ML Bottle IVPUSH ONE (10:13)
[2023-01-27] MEDS ORDERED: Sulfamethoxazole/Trimethoprim 800-160 MG Tab PO ONE (11:17)
== END 2023-01-27 11:40 | disposition home or self-care (01) ==
LOC: JD.ED 08:07
DX: N30.00 Acute cystitis without hematuria (principal); E66.9 Obesity, unspecified; Z68.34 Body mass index [BMI] 34.0-34.9, adult; Z86.16 Personal history of COVID-19; Z87.891 Personal history of nicotine dependence
CPT/HCPCS: 36415; 74177; 76705; 80053; 81001; 83690; 84702; 85025; 86140; 87086; 99284; A9270; J3490; Q9967

== ENCOUNTER 2023-07-22 18:02 | Emergency (ER) | payer MEDICAID ==
[2023-07-22] MEDS: Sodium Chloride 0.9% 10 ML Syringe FLUSH ONE (18:58)
[2023-07-22] MEDS: Iopamidol 755 Mg/ML 100 ML Bottle IVPUSH ONE (18:58)
[2023-07-22] MEDS ORDERED: Sodium Chloride 0.9% 100 ML IV SCH (19:00)
[2023-07-22] MEDS: Ketorolac 30 MG/ML SDV IVPUSH ONE (20:04)
== END 2023-07-22 20:13 | disposition home or self-care (01) ==
LOC: JD.ED 18:02
DX: M94.0 Chondrocostal junction syndrome [Tietze] (principal); E66.9 Obesity, unspecified; Z68.34 Body mass index [BMI] 34.0-34.9, adult; Z86.16 Personal history of COVID-19
CPT/HCPCS: 71275; 99283; J3490; Q9967

== ENCOUNTER 2023-12-30 00:12 | Emergency (ER) | payer MEDICAID ==
[2023-12-30 00:36] LABS: APPEARANCE,URINE SLT CLOUDY (Clear); BILIRUBIN,URINE NEGATIVE (Negative); COLOR,URINE LIGHT YELLOW (Yellow); GLUCOSE,URINE NEGATIVE (Negative); KETONES,URINE NEGATIVE (Negative); LEUKOCYTE ESTERASE,URINE TRACE (Negative); NITRITE,URINE NEGATIVE (Negative); OCCULT BLOOD,URINE 2+ (Negative); PROTEIN,URINE NEGATIVE (Negative); UROBILINOGEN,URINE 0.2 (0.2-1.0)
[2023-12-30 00:55] LABS: BACTERIA,URINE FEW /hpf (FEW); MUCUS,URINE NOT SEEN /hpf (FEW)
[2023-12-30] MEDS: Nitrofurantoin Monohydrate/Macrocrystalline 100 MG Cap PO ONE (01:45)
== END 2023-12-30 01:48 | disposition home or self-care (01) ==
LOC: JD.ED 00:12
DX: N39.0 Urinary tract infection, site not specified (principal); E66.9 Obesity, unspecified; Z86.16 Personal history of COVID-19; Z68.35 Body mass index [BMI] 35.0-35.9, adult
CPT/HCPCS: 81001; 87086; 99283; A9270

== ENCOUNTER 2024-06-28 11:47 | Emergency (ER) | payer MEDICAID ==
[2024-06-28] MEDS ORDERED: Sodium Chloride 0.9% 10 ML Syringe FLUSH PRN (12:15)
[2024-06-28] MEDS: Sodium Chloride 0.9% 1,000 ML IV STA (12:30)
[2024-06-28] MEDS: Ondansetron 4 MG/2 ML SDV IVPUSH ONE (12:32)
[2024-06-28] MEDS: HYDROmorphone 0.5 MG/0.5 ML Syringe IVPUSH ONE (12:33)
[2024-06-28 12:37] LABS: BASOPHILS PERCENT AUTO 0.2 % (0.0-1.0); EOSINOPHILS PERCENT AUTO 0.1 % (0.0-6.0); HEMATOCRIT 47.1 % (37.0-47.0); HEMOGLOBIN 15.7 gm/dl (12.0-16.0); IMMATURE GRAN ABSOLUTE AUTO 0.05 K/mm3 (0.00-0.05); IMMATURE GRAN PERCENT AUTO 0.3 % (0.0-0.4); LYMPHOCYTES ABSOLUTE AUTO 1.1 K/mm3 (1.0-4.8); LYMPHOCYTES PERCENT AUTO 7.3 % (24.0-44.0); MEAN CORPUSCULAR HGB CONC 33.3 g/dl (32.0-36.0); MEAN CORPUSCULAR VOLUME 92.9 fl (83.0-99.0); MEAN PLATELET VOLUME 8.8 fl (9.4-12.3); MONOCYTES ABSOLUTE AUTO 0.3 K/mm3 (0.0-0.8); MONOCYTES PERCENT AUTO 2.3 % (0.0-8.0); NEUTROPHILS PERCENT AUTO 89.8 % (41.0-71.0); PLATELET COUNT,PLT 268 K/mm3 (150-400); RED BLOOD CELL COUNT 5.07 M/mm3 (4.10-5.30); WHITE BLOOD CELL COUNT,WBC 14.52 K/mm3 (3.9-11.3)
[2024-06-28 13:00] LABS: A/G RATIO 0.9 (1-2); ALBUMIN 3.4 g/dl (3.4-5.0); BILIRUBIN TOTAL 0.6 mg/dL (0.2-1.0); CALCIUM 8.9 mg/dL (8.5-10.1); CREATININE 0.8 mg/dL (0.55-1.02); EST CRCL DRUG DOSING (CG) 85.83 mL/min; PROTEIN TOTAL,TP 7.3 g/dl (6.4-8.2)
== END 2024-06-28 14:17 | disposition home or self-care (01) ==
LOC: JD.ED 11:47
DX: A08.4 Viral intestinal infection, unspecified (principal); E66.9 Obesity, unspecified; Z79.899 Other long term (current) drug therapy; Z86.16 Personal history of COVID-19; Z68.36 Body mass index [BMI] 36.0-36.9, adult
CPT/HCPCS: 36415; 80053; 83690; 84703; 85025; 96361; 96374; 96375; 99284; J2405; J7030

== ENCOUNTER 2024-10-23 09:17 | Observation (INO) | payer MEDICAID ==
[2024-10-23] MEDS: Sodium Chloride 0.9% 10 ML Syringe FLUSH ONE (09:56)
[2024-10-23 10:02] LABS: BASOPHILS ABSOLUTE AUTO 0.0 K/mm3 (0.0-0.2); BASOPHILS PERCENT AUTO 0.3 % (0.0-1.0); EOSINOPHILS ABSOLUTE AUTO 0.0 K/mm3 (0.0-0.4); EOSINOPHILS PERCENT AUTO 0.1 % (0.0-6.0); IMMATURE GRAN ABSOLUTE AUTO 0.06 K/mm3 (0.00-0.05); IMMATURE GRAN PERCENT AUTO 0.5 % (0.0-0.4); LYMPHOCYTES ABSOLUTE AUTO 1.0 K/mm3 (1.0-4.8); LYMPHOCYTES PERCENT AUTO 7.6 % (24.0-44.0); MEAN PLATELET VOLUME 8.8 fl (9.4-12.3); MONOCYTES ABSOLUTE AUTO 0.5 K/mm3 (0.0-0.8); MONOCYTES PERCENT AUTO 4.2 % (0.0-8.0); NEUTROPHILS ABSOLUTE AUTO 11.0 K/mm3 (1.8-7.7); NEUTROPHILS PERCENT AUTO 87.3 % (41.0-71.0); NRBC ABSOLUTE 0.00 (0.00-0.02); NRBC PERCENT 0.0 % (0.0-0.2); PLATELET COUNT,PLT 222 K/mm3 (150-400); RED BLOOD CELL COUNT 4.82 M/mm3 (4.10-5.30); WHITE BLOOD CELL COUNT,WBC 12.55 K/mm3 (3.9-11.3)
[2024-10-23 10:26] LABS: A/G RATIO 1.0 (1-2); ALANINE AMINOTRANSFERASE,ALT 18.0 U/L (14-59); ASPARTATE AMNIOTRANSFERASE,AST 11.0 U/L (15-37); BILIRUBIN TOTAL 0.7 mg/dL (0.2-1.0); BLOOD UREA NITROGEN,BUN 12.0 mg/dL (7-18); CARBON DIOXIDE,CO2 24.0 mEq/L (21-32); CHLORIDE,CL 103.0 mEq/L (98-107); CREATININE 0.8 mg/dL (0.55-1.02); EST CRCL DRUG DOSING (CG) 85.06 mL/min; ESTIMATED GFR 102.0 mL/min (>60); GLUCOSE RANDOM 104.0 mg/dL (70-99); POTASSIUM,K 3.5 mEq/L (3.5-5.1); PROTEIN TOTAL,TP 7.1 g/dl (6.4-8.2); SODIUM,NA 138.0 mEq/L (136-145)
[2024-10-23] MEDS: Sodium Chloride 0.9% 10 ML Syringe FLUSH PRN (10:41)
[2024-10-23] MEDS: Iopamidol 612 MG/ML 100 ML Bottle IVPUSH ONE (10:41)
[2024-10-23] MEDS: Ondansetron 4 MG/2 ML SDV IVPUSH ONE (11:09)
[2024-10-23 11:15] LABS: APPEARANCE,URINE CLEAR (Clear); GLUCOSE,URINE NEGATIVE (Negative); OCCULT BLOOD,URINE NEGATIVE (Negative)
[2024-10-23] MEDS ORDERED: propofoL 500 MG/50 ML 50 ML ONE (12:29)
[2024-10-23] MEDS ORDERED: Ondansetron 4 MG/2 ML SDV ONE (12:30)
[2024-10-23] MEDS ORDERED: Propofol 200 MG/20 ML SDV ONE ×2 (12:30→13:21)
[2024-10-23] MEDS ORDERED: Dexamethasone 4 MG/ML 5 ML MDV ONE (12:30)
[2024-10-23] MEDS ORDERED: fentaNYL 250 MCG/5 ML SDV ONE (12:30)
[2024-10-23] MEDS ORDERED: dexmedeTOMIDine HCl 200 MCG/2 ML SDV ONE (12:30)
[2024-10-23] MEDS ORDERED: Ketorolac 30 MG/ML SDV ONE (13:16)
[2024-10-23] MEDS: Lactated Ringers 1,000 ML IV SCH (13:24)
[2024-10-23] MEDS: Heparin Sodium 5,000 Units/ML Vial SUBCUT ONE (13:28)
[2024-10-23] MEDS ORDERED: Ondansetron 4 MG/2 ML SDV IVPUSH PRN ×2 (14:45→14:50)
[2024-10-23] MEDS ORDERED: Lactated Ringers 1,000 ML IV SCH (14:45)
[2024-10-23] MEDS ORDERED: fentaNYL 100 MCG/2 ML SDV IVPUSH PRN (14:50)
[2024-10-23] MEDS ORDERED: droPERidol 2.5 MG/ML SDV IV PRN (14:50)
[2024-10-23] MEDS: Ketorolac 30 MG/ML SDV IVPUSH SCH (18:44)
[2024-10-23] MEDS: Heparin Sodium 5,000 Units/ML Vial SUBCUT SCH (22:23)
== END 2024-10-24 07:59 | disposition home or self-care (01) ==
LOC: JD.ED 09:17 → JD.SDS 12:56 → JD.MS 14:40
PROVIDERS: ADMIT Surgery; ATTEND Surgery
DX: K35.80 Unspecified acute appendicitis (principal); K21.9 Gastro-esophageal reflux disease without esophagitis; F41.9 Anxiety disorder, unspecified; Z79.899 Other long term (current) drug therapy
CPT/HCPCS: 36415; 44970; 74177; 80053; 81001; 83690; 84703; 85025; 96361; 96365; 96372; 99285; J0694; J1100; J1644; J1885; J2003; J2405; J2704; J3010; J7030; J7120; Q9967; 00840; J3490

== ENCOUNTER 2024-12-08 08:55 | Emergency (ER) | payer MEDICAID | END 2024-12-08 11:23 | disposition home or self-care (01) | LOC: JD.ED 08:55 | DX: S09.90XA Unspecified injury of head, initial encounter (principal); E66.9 Obesity, unspecified; Z68.35 Body mass index [BMI] 35.0-35.9, adult; Z86.16 Personal history of COVID-19; W22.8XXA Striking against or struck by other objects, initial encounter | CPT/HCPCS: 70450; 99283; A9270 ==

== ENCOUNTER 2024-12-10 00:21 | Emergency (ER) | payer MEDICAID ==
[2024-12-10 00:39] LABS: BASOPHILS ABSOLUTE AUTO 0.0 K/mm3 (0.0-0.2); BASOPHILS PERCENT AUTO 0.3 % (0.0-1.0); EOSINOPHILS ABSOLUTE AUTO 0.1 K/mm3 (0.0-0.4); EOSINOPHILS PERCENT AUTO 0.8 % (0.0-6.0); IMMATURE GRAN ABSOLUTE AUTO 0.03 K/mm3 (0.00-0.05); IMMATURE GRAN PERCENT AUTO 0.3 % (0.0-0.4); LYMPHOCYTES ABSOLUTE AUTO 4.7 K/mm3 (1.0-4.8); LYMPHOCYTES PERCENT AUTO 39.7 % (24.0-44.0); MEAN PLATELET VOLUME 8.9 fl (9.4-12.3); MONOCYTES ABSOLUTE AUTO 0.7 K/mm3 (0.0-0.8); MONOCYTES PERCENT AUTO 5.8 % (0.0-8.0); NEUTROPHILS ABSOLUTE AUTO 6.3 K/mm3 (1.8-7.7); NEUTROPHILS PERCENT AUTO 53.1 % (41.0-71.0); NRBC ABSOLUTE 0.00 (0.00-0.02); NRBC PERCENT 0.0 % (0.0-0.2); PLATELET COUNT,PLT 299 K/mm3 (150-400); RED BLOOD CELL COUNT 5.06 M/mm3 (4.10-5.30); WHITE BLOOD CELL COUNT,WBC 11.89 K/mm3 (3.9-11.3)
[2024-12-10 00:58] LABS: D-DIMER QUANTITATIVE 0.31 mg/L (0.19-0.50); INR 0.95
[2024-12-10 00:59] LABS: PTT,PARTIAL THROMBOPLSTIN TIME 25.2 SECONDS (21.7-31.4)
[2024-12-10 01:04] LABS: A/G RATIO 1.0 (1-2); ALANINE AMINOTRANSFERASE,ALT 22.0 U/L (14-59); ASPARTATE AMNIOTRANSFERASE,AST 11.0 U/L (15-37); BILIRUBIN TOTAL 0.3 mg/dL (0.2-1.0); BLOOD UREA NITROGEN,BUN 18.0 mg/dL (7-18); CARBON DIOXIDE,CO2 26.0 mEq/L (21-32); CHLORIDE,CL 101.0 mEq/L (98-107); CREATININE 0.9 mg/dL (0.55-1.02); EST CRCL DRUG DOSING (CG) 75.61 mL/min; ESTIMATED GFR 88.0 mL/min (>60); GLUCOSE RANDOM 115.0 mg/dL (70-99); POTASSIUM,K 3.6 mEq/L (3.5-5.1); PROTEIN TOTAL,TP 7.7 g/dl (6.4-8.2); SODIUM,NA 139.0 mEq/L (136-145); TROPONIN I HIGH SENSITIVITY 6.0 pg/mL (<=51)
[2024-12-10 02:22] LABS: APPEARANCE,URINE CLEAR (Clear); GLUCOSE,URINE NEGATIVE (Negative); OCCULT BLOOD,URINE NEGATIVE (Negative)
[2024-12-10 02:44] LABS: EPITHELIAL CELLS,URINE 0-5 /hpf (0-5)
== END 2024-12-10 04:15 | disposition home or self-care (01) ==
LOC: JD.ED 00:21
DX: F41.0 Panic disorder [episodic paroxysmal anxiety] (principal); E66.9 Obesity, unspecified; Z88.8 Allergy status to other drugs, medicaments and biological substances; Z86.16 Personal history of COVID-19; Z68.36 Body mass index [BMI] 36.0-36.9, adult
CPT/HCPCS: 36415; 71045; 80053; 81001; 84484; 85025; 85379; 85610; 85730; 93005; 99285; A9270; 93010; 99284

== ENCOUNTER 2025-01-13 11:23 | Emergency (ER) | payer MEDICAID ==
[2025-01-13 12:14] LABS: BASOPHILS ABSOLUTE AUTO 0.1 K/mm3 (0.0-0.2); BASOPHILS PERCENT AUTO 0.5 % (0.0-1.0); EOSINOPHILS ABSOLUTE AUTO 0.0 K/mm3 (0.0-0.4); EOSINOPHILS PERCENT AUTO 0.4 % (0.0-6.0); IMMATURE GRAN ABSOLUTE AUTO 0.03 K/mm3 (0.00-0.05); IMMATURE GRAN PERCENT AUTO 0.3 % (0.0-0.4); LYMPHOCYTES ABSOLUTE AUTO 2.4 K/mm3 (1.0-4.8); LYMPHOCYTES PERCENT AUTO 24.0 % (24.0-44.0); MEAN PLATELET VOLUME 9.1 fl (9.4-12.3); MONOCYTES ABSOLUTE AUTO 0.5 K/mm3 (0.0-0.8); MONOCYTES PERCENT AUTO 5.0 % (0.0-8.0); NEUTROPHILS ABSOLUTE AUTO 7.0 K/mm3 (1.8-7.7); NEUTROPHILS PERCENT AUTO 69.8 % (41.0-71.0); NRBC ABSOLUTE 0.00 (0.00-0.02); NRBC PERCENT 0.0 % (0.0-0.2); PLATELET COUNT,PLT 261 K/mm3 (150-400); RED BLOOD CELL COUNT 4.90 M/mm3 (4.10-5.30); WHITE BLOOD CELL COUNT,WBC 10.06 K/mm3 (3.9-11.3)
[2025-01-13 12:38] LABS: A/G RATIO 1.0 (1-2); ALANINE AMINOTRANSFERASE,ALT 20.0 U/L (14-59); ASPARTATE AMNIOTRANSFERASE,AST 11.0 U/L (15-37); BILIRUBIN TOTAL 0.4 mg/dL (0.2-1.0); BLOOD UREA NITROGEN,BUN 15.0 mg/dL (7-18); CARBON DIOXIDE,CO2 24.0 mEq/L (21-32); CHLORIDE,CL 106.0 mEq/L (98-107); CREATININE 0.8 mg/dL (0.55-1.02); EST CRCL DRUG DOSING (CG) 85.06 mL/min; ESTIMATED GFR 102.0 mL/min (>60); GLUCOSE RANDOM 105.0 mg/dL (70-99); POTASSIUM,K 3.8 mEq/L (3.5-5.1); PROTEIN TOTAL,TP 7.3 g/dl (6.4-8.2); SODIUM,NA 138.0 mEq/L (136-145); TROPONIN I HIGH SENSITIVITY 7.0 pg/mL (<=51)
== END 2025-01-13 13:18 | disposition home or self-care (01) ==
LOC: JD.ED 11:23
DX: M79.661 Pain in right lower leg (principal); R07.89 Other chest pain; F41.9 Anxiety disorder, unspecified; K21.9 Gastro-esophageal reflux disease without esophagitis; Z91.018 Allergy to other foods; Z79.899 Other long term (current) drug therapy; Z86.16 Personal history of COVID-19
CPT/HCPCS: 36415; 80053; 84484; 85025; 85379; 93005; 99285